=== PATIENT | male | born 1945 | race Caucasian/White ===

== ENCOUNTER 2018-12-15 05:41 | Inpatient (IN) ==
--- NOTE | 2018-11-30 13:40 | PAT Medication Instructions ---
Medication Instructions Date of Service November 30, 2018 Home Medications acetaminophen [Tylenol Extra 1,000 mg PO Q6H PRN aspirin 81 mg PO QAM atorvastatin 40 mg PO QPM lisinopril 40 mg PO QAM metoprolol succinate [Toprol XL] 50 mg PO QAM pantoprazole 40 mg PO QAM polyethylene glycol 3350 [Miralax] 17 g PO HS dorzolamide-timolol [Cosopt] 1 drp OPB DAILY latanoprost [Xalatan] 1 drp OPB DAILY dutasteride 0.5 mg PO HS lorazepam 0.5 mg PO BID PRN ASK your prescriber and surgeon aspirin 81 mg PO QAM DO NOT take the morning of surgery lisinopril 40 mg PO QAM Take morning of surgery With a small sip of water, OTHERWISE NOTHING TO EAT OR DRINK AFTER MIDNIGHT: acetaminophen [Tylenol Extra 1,000 mg PO Q6H PRN (okay to take up to 4 hours prior to surgery if needed) metoprolol succinate [Toprol XL] 50 mg PO QAM pantoprazole 40 mg PO QAM dorzolamide-timolol [Cosopt] 1 drp OPB DAILY latanoprost [Xalatan] 1 drp OPB DAILY lorazepam 0.5 mg PO BID PRN (if needed) Take evening before surgery acetaminophen [Tylenol Extra 1,000 mg PO Q6H PRN (if needed) atorvastatin 40 mg PO QPM polyethylene glycol 3350 [Miralax] 17 g PO HS dutasteride 0.5 mg PO HS lorazepam 0.5 mg PO BID PRN (if needed) polyethylene glycol 3350 [Miralax] 17 g PO HS Other Notes If you have any questions please call us at [phone] or [phone] or [phone] or [phone]
--- NOTE | 2018-12-01 08:46 | Anesthesiology Consultation ---
Date of Service December 01, 2018 Assessment & Plan (1) Encounter for pre-operative examination: - ASA instructions per surgeon/prescriber - Cardio= 12/09/18= "acceptable risk to proceed with upcoming surgery without any additional CV testing or intervention" Chart Review Chart Review: Acceptable Risk for Surgery and Patient seen in Pre Admission Testing Teaching & Discussion Pre-Anesthesia Teaching/Discussion Notes: Instructed NPO after midnight before surgery,except medications with 15 cc of water. Medication instructions provided according to the PAT guidelines. History Surgery Operation Date: 12/15/18 07:30 Proposed Procedures p Robotic Laparoscopic Assisted Retropubic Prostatectomy - Brent Cain MD Height/Weight Height: 5 ft 11 in Weight: 102.6 kg Allergies Allergy/AdvReac Type Severity Reaction Status Date / Time brimonidine [From Combigan] Allergy Intermediate Rash Verified 12/03/18 09:16 timolol [From Combigan] Allergy Intermediate Rash Verified 12/03/18 09:16 oregano Allergy Gastrointestinal Verified 12/03/18 09:16 Upset kareem Allergy Gastrointestinal Verified 12/03/18 09:16 Upset Medications Home Medications Medication Instructions Recorded Confirmed Last Taken aspirin 81 mg PO QAM 10/13/18 12/03/18 10/12/18 atorvastatin 40 mg PO QPM 10/13/18 12/03/18 10/12/18 lisinopril 40 mg PO QAM 10/13/18 12/03/18 10/12/18 metoprolol succinate [Toprol XL] 50 mg PO QAM 10/13/18 12/03/18 10/12/18 pantoprazole 40 mg PO QAM 10/13/18 12/03/18 10/12/18 polyethylene glycol 3350 [Miralax] 17 g PO HS 10/13/18 12/03/18 10/12/18 dorzolamide-timolol [Cosopt] 1 drp OPB DAILY 11/17/18 12/03/18 Unknown latanoprost [Xalatan] 1 drp OPB DAILY 11/17/18 12/03/18 Unknown dutasteride 0.5 mg PO HS 11/25/18 12/03/18 Unknown lorazepam 0.5 mg PO BID PRN 11/25/18 12/03/18 Unknown acetaminophen 500 mg tablet 2,000 mg PO DAILY tab 12/03/18 12/03/18 Unknown ibuprofen 200 mg tablet 200 mg PO DAILY PRN tab 12/03/18 12/03/18 Unknown Past Medical History Medical History Prostate cancer Anxiety Bradycardia ASYMPTOMATIC ON BETA JENNIFER GERD (gastroesophageal reflux disease) CONTROLLED Glaucoma Hyperlipidemia Hypertension Indwelling Giles catheter present Obesity Past Surgical History Surgical History History of abdominal aortic aneurysm repair 2010 History of cataract extraction with lens replacement History of prostate biopsy 11/09/18 History of umbilical hernia repair Past Anesthesia History No Hx of Anesthesia Complications and No Family Hx of Anesthesia Complications History of PONV No Motion Sickness Screening History of Motion Sickness: No Social History Smoking Status: Former smoker tobacco type: cigarettes Smoking cigarettes per day: QUIT 10 YEARS AGO; 1 PPD X 45 YEARS Do You Dip or Chew Tobacco: No Hx Alcohol Use: No Hx Substance Use: No substance use type: does not use Exercise / Class Metabolic Activity II 4-5 Yardwork/Stairs/Walk up hill Review of Systems Patient denies chest pain, shortness of breath, dyspnea on exertion, cough, wheezing, palpitations. Physical Exam Vital Signs VITALS BP 153/83 P 50 TEMP 97.6 SP02 98%RA RESP 16 PHYSICAL Full neck and c-spine range of motion. Full TMJ range of motion. TMD 3.5 finger breaths Mallampati Score 2 Dentition: missing side teeth, several crowns "all over," upper front caps, implants on upper front left/right Lungs: clear throughout to auscultation Cardiac: regular rate and rhythm, no murmurs noted Spine: normal Carotid arteries: negative bruit Extremities: no edema Testing Electrocardiogram Date: 12/01/18 Findings: + SB @ (54) Chest X-Ray Date: 12/01/18 Findings: + NAD Laboratory Results 12/01/18 09:10 12/01/18 09:10 Blood Type O Positive 12/01/18 09:10 Antibody Screen NEGATIVE 12/01/18 09:10 Urine Color Yellow 12/01/18 09:10 Urine Appearance Clear (Clear) 12/01/18 09:10 Urine pH 5.0 (4.5-7.5) 12/01/18 09:10 Ur Specific [place] 1.011 (1.000-1.030) 12/01/18 09:10 Urine Protein Negative (Negative) 12/01/18 09:10 Urine Glucose (UA) Negative (Negative) 12/01/18 09:10 Urine Ketones Negative (Negative) 12/01/18 09:10 Urine Nitrite Negative (Negative) 12/01/18 09:10 Ur Leukocyte Esterase Trace (Negative) H 12/01/18 09:10 Urine WBC (Auto) 5-10 /hpf (0-5) H 12/01/18 09:10 Urine RBC (Auto) >30 /hpf (0-4) H 12/01/18 09:10 U Hyaline Cast (Auto) 1-5 /lpf (0-5) 12/01/18 09:10 U Epithel Cells (Auto) 5-10 /lpf (0-5) H 12/01/18 09:10 Urine Bacteria (Auto) Negative (Negative) 12/01/18 09:10 12/01/18 09:10 Urine Culture - Final Urine,Clean Catch Three types of organisms present, all low counts probable skin mateo. No further identifications or sensitivities to follow.
--- NOTE | 2018-12-01 09:32 | XRay Report ---
XR chest Pre-admission PA/Lat HISTORY: 73 years-old Male pat preoperative exam. No acute chest complaints COMPARISON: [facility] 10/08/2018 TECHNIQUE: PA and lateral views of the chest FINDINGS: Cardiomediastinal and hilar silhouettes are within normal limits. There is no pneumothorax, pleural e ffusion, focal airspace consolidation or overt pulmonary edema. Degenerative changes are seen about t he shoulders and spine. IMPRESSION: No acute process. The above report was generated using voice recognition software. It may contain grammatical, syntax o r spelling errors. Electronically signed by: Jluis Ahuja M.D. 12/01/2018 9:31 AM
[2018-12-01 10:38] LABS: Basophils # (auto) 0.03 K/uL (0-0.2); Basophils % (auto) 0.6 %; Eosinophils # (auto) 0.11 K/uL (0-0.5); Eosinophils % (auto) 2.4 %; Hemoglobin 13.3 g/dL (14.0-18.0); Immature Granulocytes # (auto) 0.01 K/uL (0.00-0.02); Immature Granulocytes % (auto) 0.2 %; Lymphocytes # (auto) 1.32 K/uL (1.2-3.4); Lymphocytes % (auto) 28.6 %; Mean Corpuscular Hgb Conc 33.3 g/dL (32-36); Mean Corpuscular Volume 90.7 fL (80-100); Mean Platelet Volume 9.7 fL (7.4-10.4); Monocytes # (auto) 0.61 K/uL (0.11-0.59); Monocytes % (auto) 13.2 %; Neutrophils # (auto) 2.54 K/uL (1.4-6.5); Platelet Count 190 K/uL (130-400); RDW Coefficient of Variation 13.9 % (11.5-14.5); RDW Standard Deviation 46.3 fL (36.4-46.3); Red Blood Count 4.41 M/uL (4.7-6.1); White Blood Count 4.62 K/uL (4.8-10.8)
[2018-12-01 10:46] LABS: BUN Creatinine Ratio 17.1 (10-20); Calcium 8.7 mg/dl (8.5-10.1); Est GFR (African American) 85.3; Est GFR (Non-African American) 73.6; Potassium 4.5 mmol/L (3.5-5.1)
[2018-12-01 10:50] LABS: Appearance Urine Clear (Clear); Bacteria Urine Automated Negative (Negative); Bilirubin Urine Negative (Negative); Blood Urine 3+ (Negative); Color Urine Yellow; Glucose Urine UA Negative (Negative); Ketones Urine Negative (Negative); Leukocyte Esterase Urine Trace (Negative); Nitrite Urine Negative (Negative); Protein Urine Negative (Negative); RBC Urine Automated >30 /hpf (0-4); Specific Gravity Urine 1.011 (1.000-1.030); Urobilinogen Urine Negative (Negative)
[2018-12-15] MEDS ORDERED: LR 15ML/HR IV SCH ×2 (06:00)
[2018-12-15] MEDS ORDERED: HEPARIN SOD 5,000 UNIT/0.5 ML VIAL SQ SCH (06:00)
[2018-12-15] MEDS ORDERED: ACETAMINOPHEN 1,000 MG/100 ML VIAL IV SCH ×2 (06:00→14:45)
[2018-12-15] MEDS ORDERED: CEFAZOLIN 2000MG 2,000 MG/15 ML SYR IV SCH (06:00)
--- NOTE | 2018-12-15 06:58 | History & Physical Bridge Note ---
Date of Service December 15, 2018 History & Physical Bridge Note I have examined the patient, reviewed the History & Physical and in the interval since the performance of the History & Physical I have noted the following changes of clinical significance: no changes noted
[2018-12-15] MEDS ORDERED: ONDANSETRON INJ 2 MG/ML 2 ML VIAL ONE ×2 (07:08→08:52)
[2018-12-15] MEDS ORDERED: LIDOCAINE HCL 2% 2 ML VIAL/AMP(20MG/ML) INFIL ONE (07:08)
[2018-12-15] MEDS ORDERED: GLYCOPYRROLATE 0.2 MG/ML VIAL ONE ×2 (07:08→08:52)
[2018-12-15] MEDS ORDERED: DEXAMETHASONE SOD INJ 4 MG/ML VIAL ONE (07:08)
[2018-12-15] MEDS ORDERED: NEOSTIGMINE METHYLSULFATE 5 MG/5 ML SYR ONE (07:08)
[2018-12-15] MEDS ORDERED: PROPOFOL IV EMULSION 10 MG/ML 20 ML VIAL IV ONE (07:08)
[2018-12-15] MEDS ORDERED: HYDROmorphone INJ 2 MG/ML SYR/VIAL ONE (07:09)
[2018-12-15] MEDS ORDERED: MIDAZOLAM HCL 1 MG/ML 2ML VIAL ONE (07:09)
[2018-12-15] MEDS ORDERED: fentaNYL citrate 100 MCG/2 ML VIAL ONE ×3 (07:09→13:28)
[2018-12-15] MEDS ORDERED: SODIUM CHLORIDE 0.9% INJ 10 ML VIAL ONE (07:09)
[2018-12-15] MEDS ORDERED: BUPIVACAINE 0.5 % 5 MG/1 ML MPF 30ML VIAL ONE (07:27)
[2018-12-15] MEDS ORDERED: BACITRACIN INJ 50,000 UNIT VIAL ONE (08:08)
[2018-12-15] MEDS ORDERED: HydrALAZINE HCL 20 MG/ML VIAL ONE (08:41)
[2018-12-15] MEDS ORDERED: ePHEDrine sulfate 50 MG/ML SYR ONE (08:53)
[2018-12-15] MEDS ORDERED: METHYLENE BLUE 0.5% 10 ML VIAL ONE (09:36)
[2018-12-15] MEDS ORDERED: SURGICEL ABSORB HEMOSTAT 2IN X 14IN TOP ONE (10:00)
[2018-12-15] MEDS ORDERED: ATROPINE SULFATE 0.1 MG/ML 10ML SYR IV PRN (11:31)
[2018-12-15] MEDS ORDERED: HYDROmorphone INJ 1 MG/ML SYRINGE IV PRN (11:31)
[2018-12-15] MEDS ORDERED: ONDANSETRON INJ 2 MG/ML 2 ML VIAL IV PRN ×2 (11:31→14:44)
[2018-12-15] MEDS ORDERED: fentaNYL citrate 100 MCG/2 ML VIAL IV PRN (11:31)
[2018-12-15] MEDS ORDERED: ePHEDrine sulfate 50 MG/ML AMP IV PRN (11:31)
[2018-12-15] MEDS ORDERED: metroNIDAZOLE 500 MG/100 ML BAG IV ONE (12:00)
[2018-12-15] MEDS ORDERED: FLOSEAL HEMOSTATIC MATRIX 10ML TOP ONE (12:23)
[2018-12-15] MEDS ORDERED: ROCURONIUM BROMIDE 10 MG/ML 5 ML VIAL ONE (13:23)
--- NOTE | 2018-12-15 14:38 | Operative Report ---
Post Operative Report Pre & Post Diagnosis Operation Date: 12/15/18 07:30 Pre-Op Diagnosis: Prostate Cancer Post-Op Diagnosis: Prostate Cancer Procedure Operation Date: 12/15/18 07:30 Actual Procedures p Robotic Assisted Laparoscopic Prostatectomy with Bilateral Pelvic Lymph Node Dissection and bladder neck reconstruction(Not Applicable) - Brent Cain MD Surgeon Brent Cain MD Tennis Director Camila Mercer, ISMAEL, Essie De León, CRPP Estimated Blood Loss 450 Findings See Below (Prostate cancer and possible urothelial cancer) Specimens Bladder neck, frozen suspicious for urothelial malignancy, L & R PLN, prostate + SVs, periprostatic fat Description of Procedure RALRP, BPLND, bladder neck reconstruction I attest to the content of the Intraoperative Record and any orders documented therein. Any exceptions are noted below.
[2018-12-15] MEDS ORDERED: LORazepam 0.5 MG TAB PO PRN (14:43)
[2018-12-15] MEDS ORDERED: MoRPHine SULFATE 4 MG/ML 1 ML CARP\\VIAL IV PRN (14:44)
[2018-12-15 15:20] LABS: Hematocrit (blood only) 38.9 % (42-52); Mean Corpuscular Volume 89.4 fL (80-100); Mean Platelet Volume 9.3 fL (7.4-10.4); Platelet Count 202 K/uL (130-400); RDW Coefficient of Variation 13.9 % (11.5-14.5); RDW Standard Deviation 46.1 fL (36.4-46.3); Red Blood Count 4.35 M/uL (4.7-6.1); White Blood Count 9.47 K/uL (4.8-10.8)
[2018-12-15] MEDS ORDERED: METOPROLOL TARTRATE 1 MG/ML VIAL IV STA (15:41)
[2018-12-15] MEDS ORDERED: METOPROLOL TARTRATE 1 MG/ML VIAL IV ONE (15:42)
[2018-12-15 15:43] LABS: BUN Creatinine Ratio 17.2 (10-20); Calcium 8.3 mg/dl (8.5-10.1); Creatinine Clr Calc Pharmacy 65.8 ml/min; Est GFR (African American) 68.7; Est GFR (Non-African American) 59.3; Potassium 4.7 mmol/L (3.5-5.1)
[2018-12-15 15:52] LABS: Mean Corpuscular Hgb Conc 33.4 g/dL (32-36)
[2018-12-15 15:53] LABS: Basophils # (auto) 0.01 K/uL (0-0.2); Basophils % (auto) 0.1 %; Immature Granulocytes # (auto) 0.02 K/uL (0.00-0.02); Immature Granulocytes % (auto) 0.2 %; Lymphocytes # (auto) 0.54 K/uL (1.2-3.4); Lymphocytes % (auto) 5.7 %; Monocytes # (auto) 0.41 K/uL (0.11-0.59); Monocytes % (auto) 4.3 %; Neutrophils # (auto) 8.49 K/uL (1.4-6.5); Neutrophils % (auto) 89.7 %
--- NOTE | 2018-12-15 16:06 | Anesthesiology Progress Note ---
Date of Service December 15, 2018 Anesthesia Post Procedure Vital Signs Vital Signs: Temp Pulse Pulse Pulse Resp BP BP 12/15/18 16:00 72 12 12/15/18 15:50 82 17 12/15/18 15:47 100 H 155/88 H 12/15/18 15:40 101 H 19 12/15/18 15:30 100 H 19 12/15/18 15:20 102 H 15 12/15/18 15:10 100 H 16 12/15/18 15:00 100 H 13 12/15/18 14:55 120 H 26 H 12/15/18 14:49 36.2 C L 103 H 13 12/15/18 06:17 36.8 C 52 L 20 158/84 H BP Pulse Ox 12/15/18 16:00 163/87 H 94 12/15/18 15:50 137/80 95 12/15/18 15:47 12/15/18 15:40 129/92 98 12/15/18 15:30 145/92 H 95 12/15/18 15:20 136/92 95 12/15/18 15:10 129/73 95 12/15/18 15:00 104/73 94 12/15/18 14:55 127/82 94 12/15/18 14:49 119/88 94 12/15/18 06:17 97 Pain Intensity Abdomen: Pain Intensity: 0 Notes Mental Status: alert / awake / arousable Patient Amnestic to Procedure: Yes Nausea / Vomiting: adequately controlled Pain: adequately controlled Airway Patency, RR, SpO2: stable & adequate BP & HR: stable & adequate Hydration State: stable & adequate Anesthetic Complications: no major complications apparent and Pt Satisfied with anesthetic care
[2018-12-15] MEDS: LACTATED RINGER'S 1,000 ML IV SCH ×2 (17:15→20:20)
[2018-12-15] MEDS: CIPROFLOXACIN 400 MG/200 ML BAG IV SCH (18:03)
[2018-12-15] MEDS: FAMOTIDINE 20 MG in SYRINGE 3 ML IV SCH (18:03)
[2018-12-15 20:14] LABS: Prothrombin Time 10.7 Seconds (9.0-12.0)
[2018-12-15] MEDS ORDERED: DOCUSATE SODIUM 100 MG CAP PO SCH (21:00)
[2018-12-15] MEDS: OXYCODONE HCL IR 5 MG TAB (IMMEDIATE RELEASE) PO PRN (21:03)
[2018-12-15] MEDS: ATORVASTATIN 40 MG TAB PO SCH (21:04)
[2018-12-15] MEDS: HEPARIN SOD 5,000 UNIT/0.5 ML VIAL SQ SCH (21:10)
[2018-12-16] MEDS: LACTATED RINGER'S 1,000 ML IV SCH ×3 (04:15→20:04)
[2018-12-16] MEDS: CIPROFLOXACIN 400 MG/200 ML BAG IV SCH (04:52)
[2018-12-16] MEDS: FAMOTIDINE 20 MG in SYRINGE 3 ML IV SCH (04:52)
[2018-12-16] MEDS: OXYCODONE HCL IR 5 MG TAB (IMMEDIATE RELEASE) PO PRN ×5 (04:52→20:06)
--- NOTE | 2018-12-16 04:55 | Operative Report ---
DATE OF OPERATION: 12/15/2018 PREOPERATIVE DIAGNOSIS: cT3 [place] 5+4 adenocarcinoma of the prostate. 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 PROCEDURE: Robot-assisted laparoscopic radical retropubic prostatectomy with laparoscopic resection of bladder neck tumor, bilateral pelvic lymph node dissection and bladder neck reconstruction. SURGEON: Brent Cain MD ASSISTANTS: ISMAEL Mccann, and ISMAEL Gold. ANESTHESIA: General anesthesia with endotracheal intubation plus local at port sites. ESTIMATED BLOOD LOSS: 450 mL. INTRAVENOUS FLUIDS: 1700 mL crystalloid. SPECIMENS SENT TO PATHOLOGY: Periprostatic fat, bladder neck tissue felt to be suspicious for urothelial malignancy on frozen section and bladder neck tissue for permanent section, prostate plus seminal vesicles, left pelvic lymph nodes and right pelvic lymph nodes. DRAINS LEFT IN PLACE: Include a #10 COLBY drain in the left lower quadrant and a 22-Tajik silicone Giles catheter with 20 mL of sterile water in the balloon. COMPLICATIONS: Presence of a friable bladder neck mass felt to be consistent with urothelial malignancy on frozen section. FINDINGS: As above. Ureteral orifices noted to be free of any involvement or injury. Extensive bladder neck reconstruction performed with watertight anastomosis after completion of closure. Severely indurated periprostatic tissue with a significant induration of the left periprostatic tissues and the tissues between the rectum and the prostate. Calcified prostatic vasculature. No evidence of any rectal injury after completion of case. BRIEF HISTORY: Mr. Longo is a 73-year-old male previously seen by my partner Dr. Krause who is status post prostate biopsy demonstrating high [place] grade adenocarcinoma in all cores. After discussion of risks and benefits of various forms of intervention, the patient has decided upon a robot-assisted laparoscopic prostatectomy to manage his disease. He understands that there is a significant risk that further therapy will be required, but this is felt to be the treatment of choice seeing his issues with recurrent urinary retention and failure of outpatient clean intermittent catheterization protocol. Informed consent was reviewed with the patient and family preoperatively today. Intravenous cephalosporins were provided for antibiotic coverage and SCDs and subcutaneous heparin used for DVT coverage. Intravenous Tylenol was provided preoperatively for additional perioperative analgesia. DESCRIPTION OF PROCEDURE: The patient was properly identified and brought into the operative suite after identification of appropriate consent in the chart. General anesthesia with endotracheal intubation was initiated and the patient was prepped and draped in the standard fashion for this procedure. time buyer-out procedure was followed. A transverse supraumbilical incision was made and a 0-degree laparoscope was used through a visual obturator to enter the abdomen under direct visualization. Abdomen was insufflated to 15 mmHg and surveyed demonstrating no evidence of any injury to the intra-abdominal structures on trocar access or other worrisome variations in anatomy. Ports were placed for a 4th arm robotic template including 2 left-sided 7 mm robotic ports, one 7 mm right-sided robotic port, and a 5 and 12 mm advertising assistant manager port. The patient was placed in Trendelenburg and robot was brought in and docked. A 0-degree robotic scope was used to drop the bladder down to the level of the pubic bone. The bladder was dropped down to the level of the vas deferens on both sides and the periprostatic fat was removed and sent for pathologic analysis. The patient was noted to have a significantly enlarged prostate as had been suggested on his previous CT scan. The endopelvic fascia was sharply entered on both sides using hook cautery and dissected free down to the level of the apex of the prostate. On the left hand side at this point, it was already noted that there was some induration in the posterior lateral tissues associated with the prostate gland. Dorsal vein was able to be skeletonized without excessive difficulty and was controlled in a [id number] fashion using an 0 Vicryl suture on a CT1 needle. After this was complete, the needle was removed and a 30-degree down lens was taken to address the bladder neck. Bladder neck was placed on traction in the 4th arm. The patient's Giles balloon was noted to be deviated to the patient's right hand side. This was felt to likely be due for an intravesical component of the prostate gland as had been expected due to previous CT scan imaging and difficulties with his voiding. The anterior bladder neck was divided down to the level of the prostate and then entered. On entering the bladder, the patient's Giles catheter was noted to be obscured by friable tissue which was not felt to be typical of a median lobe of the prostate. This was noted to be very inflammatory and soft and mobile in its appearance. A small section of this tissue was sent for frozen section as well as permanent section as bladder neck tissue at this point. The bladder neck was circumscribed laterally on both sides to allow for better definition of its posterior aspect. A vessel sealer was used to take the distal bladder pedicles and later the prostatic pedicles as necessary, although due to calcifications of the vessels on occasion Weck clips were required. After the bladder had been circumscribed, the visualization via the anterior vesicotomy was still noted to be poor. Decision was made to divide the bladder in a craniocaudad plane anteriorly to allow for visualization of the intravesical structures. At this point, frozen section was reported felt to be consistent with urothelial origin to the abnormality, therefore not suspicious for urothelial malignancy. After the anterior bladder neck had been opened, the remainder of the bladder was more easily visualized. A tacking suture was placed in the tissue at the level of the anterior vesicotomy to allow for easier identification in the future. Methylene blue had been provided with non-identification of the abnormal tissue at the bladder neck and ureteral orifices were thankfully able to be visualized and noted to be free from involvement. However, a significant portion of the bladder neck was noted to have abnormal appearing tissue. There were some difficulties in distinguishing the friable papillary suspected urothelial malignancy of the bladder neck versus inflammatory changes from the patient's chronic Giles catheter. Of note, at the onset of the case, after exchanging the patient's indwelling Giles catheter, bladder had been irrigated with bacitracin, saline on several occasions to minimize the odds of contamination from bacteriuria. The posterior bladder neck was marked using the hot scissors in a plane which avoided injury to the ureteral orifices, but was felt to encompass all of the abnormal appearing mucosa which appeared to sit on top of the bladder neck and prostate. Of note, no additional areas of urothelial abnormality were appreciated in the remainder of the visualized bladder. After this was complete, to assist with mobilization of the bladder and to avoid the need for excess manipulation of the tissue at the bladder neck, the lateral aspects of the prostate were begun to be dissected free. While on the right hand side, which had been deviated laterally due to enlargement of the left side of the prostate and the patient's bladder neck tumor, this dissection was able to be carried out with a relative lack of difficulty. The rectum was dropped, vas was identified, and seminal vesicles were dissected free. Cold scissors were used to drop the rectum to the level of the apex. Unfortunately, on the left hand side, a very significant and copious amount of induration of the tissues around the prostate gland was present. These tissues unfortunately required very slow and careful dissection to avoid injury to the rectum which was noted to be extremely adherent to the prostate gland. A much wider dissection was needed on the area of the left bladder neck to identify a plane where the tissue was able to be divided due to its induration. Prostatic vessels due to the slow nature of the dissection were able to be identified individually and were clamped. Some induration of these prostatic vessels required multiple clips prior to the ability to divide the tissues. Posterior to the bladder neck on the left hand side, an incision into an apparent mucosal surface was identified. Rectal tube which was present in place was insufflated under saline irrigation, but no bubbles were noted to be forthcoming from this area. The rectal tube was advanced and manipulated still without any evidence of injury despite the appearance of the tissues. Dissection was completed with the dorsal vein and urethra, the dorsal vein being divided using hot scissors and the urethra being skeletonized. Very thickened rectourethralis fibers were taken with great caution until the prostate was free within the pelvis. An EndoCatch bag was brought down to the level of the prostate gland which was then securely bagged and placed within the abdominal cavity for retrieval at the end of the case. The instruments were exchanged for new versions and had been cleaned at regular intervals throughout the case. Generous irrigation of the pelvis to minimize the odds of tumor spillage and contamination was performed with excess saline being suctioned out methodically. The rectum was again tested through the rectal tube and noted to be free of any injury. The area in question of questionable mucosal injury was again inspected and it was realized that this was a buttonholing of the pouch of Ken posteriorly. Bladder was brought anterior and the pouch of Ken was visualized with no evidence of any injury to any other significant structures such as the bowels or rectum in this area. This was simply due to the adherence of the patient's prostate and its cephalad extension and enlargement. Bladder was noted to be free of any other injuries and ureteral orifices continued to efflux stained urine with methylene blue throughout the case. FloSeal tissue sealant was then placed over the prostatic bed. Attention was then turned to the lymph node dissection on both sides. Unfortunately, the patient was noted to have several accessory vessels including accessory obturator vessels on both sides and large branches off of the external iliac vein. Using the external iliac vein, pelvic sidewall and the obturator nerve as the planes of dissection, the lymph node packets were removed on both sides. Weck clips and cautery were used for control of small vessels and lymphatics as necessary. The patient's aldair tissues on the left hand side were felt to be more inflamed than those on the right hand side mirroring the findings at the level of the prostate unfortunately. After this was complete, FloSeal tissue sealant was placed within the lymph node fossa. Attention was turned to the pelvis where excellent hemostasis was appreciated. Giles catheter was brought in via the urethra and perineal pressure was applied. Using a double armed V-Loc suture, the posterior lip of the bladder was brought to the posterior lip of the urethra and able to be brought down in a well-apposed fashion. After the posterior lip of the urethra and bladder were then brought together, single-armed V-Loc sutures were used to create a fish mouth closure on both sides ducking the ureteral orifices away from the level of the anastomosis. The double-armed V-Loc suture was then used to continue the anastomosis on both sides towards an anterior location. At this point, a third single-armed V-Loc suture was used to close the anterior vesicotomy which had been performed for exposure of the bladder and the bladder tumor. Prior to completion of the closure, a 22-Tajik Giles catheter was visualized entering the bladder. A 20 mL of sterile water were placed in the balloon and the bladder was tested with greater than 120 mL of sterile irrigant. Somewhat unexpectedly, a watertight anastomosis was appreciated. [place] were removed and needle and instrument count was noted to be correct. Fourth arm was removed and #10 COLBY drain was brought in via the fourth arm port. This was brought down to the true pelvis while avoiding placing it directly over any of the bladder closures. The robotic instruments were removed and the camera was brought in via the advertising assistant manager 12 mm port. The strings to the EndoCatch bag were brought up through the supraumbilical port with the aldair tissue having been placed in a second EndoCatch bag for retrieval at the end of the case. Ports were removed after dedocking the robot and the Trendelenburg was removed from the table. Supraumbilical incision was enlarged over the laparoscopic trocar until the specimen bags could be easily removed. A 0 Vicryl suture on a UR-5 needle was used to close the supraumbilical incision followed by 3-0 Vicryl at the level of the subcutaneous tissues. A 2-0 silk was used to secure the COLBY drain in place and 4-0 Monocryl and Dermabond were used to close the additional laparoscopic port sites. Excess carbon dioxide gas had been expressed from the abdomen prior to completion of closure. Anesthesia was reversed and patient was transferred to the recovery room in stable condition. FOLLOWUP CARE: The patient will be admitted to the floor for standard postoperative management. Care and findings had been discussed with the patient and the patient's family throughout the case. Of note, when the frozen section was positive for urothelial tissue, I personally left the OR to review these findings with the patient's family and reviewed the remaining surgical plan. I attest to the content of the Intraoperative Record and any orders documented therein. Any exceptions are noted below. ZHANE
[2018-12-16 06:52] LABS: Hematocrit (blood only) 32.9 % (42-52); Hemoglobin 10.9 g/dL (14.0-18.0); Mean Corpuscular Hgb Conc 33.1 g/dL (32-36); Mean Corpuscular Volume 90.1 fL (80-100); Mean Platelet Volume 9.1 fL (7.4-10.4); Platelet Count 166 K/uL (130-400); RDW Coefficient of Variation 14.3 % (11.5-14.5); RDW Standard Deviation 47.1 fL (36.4-46.3); Red Blood Count 3.65 M/uL (4.7-6.1); White Blood Count 8.62 K/uL (4.8-10.8)
[2018-12-16 07:24] LABS: Creatinine Clr Calc Pharmacy 71.6 ml/min; Est GFR (African American) 76.2; Est GFR (Non-African American) 65.7; Potassium 4.2 mmol/L (3.5-5.1)
[2018-12-16 07:59] LABS: Immature Granulocytes # (auto) 0.01 K/uL (0.00-0.02); Immature Granulocytes % (auto) 0.1 %; Lymphocytes # (auto) 0.71 K/uL (1.2-3.4); Lymphocytes % (auto) 8.2 %; Monocytes # (auto) 0.92 K/uL (0.11-0.59); Monocytes % (auto) 10.7 %; Neutrophils # (auto) 6.98 K/uL (1.4-6.5)
--- NOTE | 2018-12-16 08:07 | Urology Progress Note ---
Date of Service December 16, 2018 Assessment & Plan (1) Prostate cancer: A/P 73 yo male POD#1 s/p RALRP, BPLND, resection of bladder neck tumor. Findings again reviewed. Will await postop pathology report but otherwise doing well from a surgical standpoint. Minimal COLBY output. Increase diet and activity. Patient feels some limitations due to pain - will see how he does today. Possible DC COLBY and DC home later today. Will leave pelaez in place x 3 weeks seen extensive bladder neck reconstruction and plan on OP cystogram prior to TOV. DC instructions reviewed with patient. Subjective 73 yo male POD#1 s/p RALRP, BPLND, resection of bladder neck tumor. He c/o appropriate lower abdominal pain, + OOB in [place] per patient last night. Labwork noted - drop in Hb likely postop equlibration. He is irena clears, mild appetite, no n/v. Intraop findings again reviewed with patient. Constitutional: no fever and no chills Respiratory: no hemoptysis Cardiovascular: no chest pain Gastrointestinal: + abdominal pain; no nausea and no vomiting Genitourinary (Male): + hematuria (resolved postop) Integumentary: no acne and no boil Neurologic: no paralysis and no numbness Psychiatric: no hopelessness Endocrine: + fatigue Physical Exam Vital Signs (Past 24 Hours): Last Vital Signs Temp 36.6 C 12/16/18 07:29 Pulse 74 12/16/18 07:29 Resp 16 12/16/18 07:29 BP 109/68 12/16/18 07:29 Pulse Ox 95 12/16/18 07:29 Constitutional: well developed and well nourished Neck: trachea midline; no anterior neck swelling Respiratory: normal respiratory effort; no respiratory distress and does not use accessory muscles Cardiovascular: Vessels: radial pulses present Gastrointestinal (Abdomen): Inspection/Auscultation: abdomen not distended Percussion/Palpation: + abdomen tender (minimal) and abdomen soft inc c/d/i with dermabone Skin: normal turgor Neurologic: awake; not obtunded Psychiatric: Orientation: oriented x 3 Lymphatic: no lymphadenopathy Results & Data Laboratory Results Laboratory Results - last 48 hr 12/15/18 12/15/18 12/15/18 06:02 15:10 15:10 WBC 9.47 RBC 4.35 L Hgb 13.0 L Hct 38.9 L MCV 89.4 MCH 29.9 MCHC 33.4 RDW Std Deviation 46.1 RDW Coeff of Lucian 13.9 Plt Count 202 MPV 9.3 Immature Gran % (Auto) 0.2 Neut % (Auto) 89.7 Lymph % (Auto) 5.7 [place] % (Auto) 4.3 Eos % (Auto) 0.0 Baso % (Auto) 0.1 Immature Gran # (Auto) 0.02 Neut # (Auto) 8.49 H Lymph # (Auto) 0.54 L [place] # (Auto) 0.41 Eos # (Auto) 0.00 Baso # (Auto) 0.01 PT INR Sodium 139 Potassium 4.7 Chloride 106 Carbon Dioxide 26 Anion Gap 7.0 BUN 21 H Creatinine 1.22 Est Cr Clr Drug Dosing 65.8 Est GFR ( Amer) 68.7 Est GFR (Non-Af Amer) 59.3 BUN/Creatinine Ratio 17.2 Glucose 160 H Calcium 8.3 L Hepatitis C Ab Screen Neg 12/15/18 12/16/18 12/16/18 19:48 06:29 06:29 WBC 8.62 RBC 3.65 L Hgb 10.9 L Hct 32.9 L MCV 90.1 MCH 29.9 MCHC 33.1 RDW Std Deviation 47.1 H RDW Coeff of Lucian 14.3 Plt Count 166 MPV 9.1 Immature Gran % (Auto) 0.1 Neut % (Auto) 81.0 Lymph % (Auto) 8.2 [place] % (Auto) 10.7 Eos % (Auto) 0.0 Baso % (Auto) 0.0 Immature Gran # (Auto) 0.01 Neut # (Auto) 6.98 H Lymph # (Auto) 0.71 L [place] # (Auto) 0.92 H Eos # (Auto) 0.00 Baso # (Auto) 0.00 PT 10.7 INR 1.0 Sodium 136 Potassium 4.2 Chloride 103 Carbon Dioxide 28 Anion Gap 5.0 BUN 20 H Creatinine 1.12 Est Cr Clr Drug Dosing 71.6 Est GFR ( Amer) 76.2 Est GFR (Non-Af Amer) 65.7 BUN/Creatinine Ratio 18.0 Glucose 137 H Calcium 8.0 L Hepatitis C Ab Screen
[2018-12-16] MEDS: DORZOLAMIDE/TIMOLOL 22.3/6.8MG/ML 10 ML BTL OPB SCH (08:26)
[2018-12-16] MEDS: PANTOprazole 40 MG TAB PO SCH (08:27)
[2018-12-16] MEDS: METOPROLOL SUCC 50MG EXT REL TAB PO SCH (08:28)
[2018-12-16] MEDS: LISINOPRIL 40 MG TAB PO SCH (08:28)
[2018-12-16] MEDS: LATANOPROST 0.005% OP SOLN 2.5 ML BTL OPB SCH (08:28)
[2018-12-16] MEDS: HEPARIN SOD 5,000 UNIT/0.5 ML VIAL SQ SCH ×2 (08:28→20:12)
--- NOTE | 2018-12-16 08:34 | Anesthesiology Progress Note ---
Date of Service December 16, 2018 Anesthesia Post Procedure Vital Signs Vital Signs: Temp Pulse Pulse Pulse Resp BP BP 12/16/18 07:29 36.6 C 74 16 109/68 12/16/18 03:00 36.9 C 79 16 12/15/18 23:35 36.6 C 78 16 12/15/18 19:41 36.8 C 89 18 12/15/18 18:21 36.7 C 86 16 12/15/18 17:31 36.7 C 86 16 12/15/18 16:59 36.6 C 86 16 12/15/18 16:38 36.8 C 91 H 16 12/15/18 16:20 36.7 C 94 H 18 12/15/18 16:10 93 H 14 12/15/18 16:00 72 12 12/15/18 15:50 82 17 12/15/18 15:47 100 H 155/88 H 12/15/18 15:40 101 H 19 12/15/18 15:30 100 H 19 12/15/18 15:20 102 H 15 12/15/18 15:10 100 H 16 12/15/18 15:00 100 H 13 12/15/18 14:55 120 H 26 H 12/15/18 14:49 36.2 C L 103 H 13 BP Pulse Ox 12/16/18 07:29 95 12/16/18 03:00 133/63 93 12/15/18 23:35 133/75 92 12/15/18 19:41 143/84 H 92 12/15/18 18:21 150/87 H 98 12/15/18 17:31 143/84 H 94 12/15/18 16:59 138/87 92 12/15/18 16:38 152/87 H 95 12/15/18 16:20 147/81 H 96 12/15/18 16:10 144/83 H 96 12/15/18 16:00 163/87 H 94 12/15/18 15:50 137/80 95 12/15/18 15:47 12/15/18 15:40 129/92 98 12/15/18 15:30 145/92 H 95 12/15/18 15:20 136/92 95 12/15/18 15:10 129/73 95 12/15/18 15:00 104/73 94 12/15/18 14:55 127/82 94 12/15/18 14:49 119/88 94 Pain Intensity Abdomen: Pain Intensity: 3 Notes Mental Status: alert / awake / arousable Patient Amnestic to Procedure: Yes Nausea / Vomiting: adequately controlled (patient had some nausea postop that has resolved; ) Pain: adequately controlled Airway Patency, RR, SpO2: stable & adequate BP & HR: stable & adequate Hydration State: stable & adequate Anesthetic Complications: no major complications apparent
[2018-12-16] MEDS: CIPROFLOXACIN 500 MG TAB PO SCH (19:31)
[2018-12-16] MEDS: FAMOTIDINE 20 MG TAB PO SCH (20:07)
[2018-12-16] MEDS: ATORVASTATIN 40 MG TAB PO SCH (20:07)
[2018-12-16 23:58] VITALS: TEMP 98.2; O2SAT 92
[2018-12-17] MEDS: OXYCODONE HCL IR 5 MG TAB (IMMEDIATE RELEASE) PO PRN ×3 (00:12→12:49)
[2018-12-17] MEDS: LACTATED RINGER'S 1,000 ML IV SCH ×2 (03:22→11:26)
[2018-12-17] MEDS: CIPROFLOXACIN 500 MG TAB PO SCH (05:25)
[2018-12-17 07:04] LABS: Basophils # (auto) 0.01 K/uL (0-0.2); Basophils % (auto) 0.1 %; Eosinophils # (auto) 0.06 K/uL (0-0.5); Eosinophils % (auto) 0.8 %; Hematocrit (blood only) 31.9 % (42-52); Hemoglobin 10.5 g/dL (14.0-18.0); Immature Granulocytes # (auto) 0.02 K/uL (0.00-0.02); Immature Granulocytes % (auto) 0.3 %; Lymphocytes # (auto) 0.74 K/uL (1.2-3.4); Lymphocytes % (auto) 9.6 %; Mean Corpuscular Hgb Conc 32.9 g/dL (32-36); Mean Corpuscular Volume 91.1 fL (80-100); Mean Platelet Volume 8.8 fL (7.4-10.4); Monocytes # (auto) 0.91 K/uL (0.11-0.59); Monocytes % (auto) 11.8 %; Neutrophils # (auto) 5.97 K/uL (1.4-6.5); Neutrophils % (auto) 77.4 %; Platelet Count 127 K/uL (130-400); RDW Coefficient of Variation 14.4 % (11.5-14.5); RDW Standard Deviation 47.7 fL (36.4-46.3); White Blood Count 7.71 K/uL (4.8-10.8)
[2018-12-17 07:14] VITALS: BP 155/74; PULSE 80
[2018-12-17 07:30] LABS: BUN Creatinine Ratio 17.6 (10-20); Calcium 7.9 mg/dl (8.5-10.1); Creatinine Clr Calc Pharmacy 87.2 ml/min; Est GFR (African American) 96.6; Est GFR (Non-African American) 83.4; Potassium 3.8 mmol/L (3.5-5.1)
[2018-12-17] MEDS: HEPARIN SOD 5,000 UNIT/0.5 ML VIAL SQ SCH (08:35)
[2018-12-17] MEDS: DORZOLAMIDE/TIMOLOL 22.3/6.8MG/ML 10 ML BTL OPB SCH (08:35)
[2018-12-17] MEDS: FAMOTIDINE 20 MG TAB PO SCH (08:35)
[2018-12-17] MEDS: LISINOPRIL 40 MG TAB PO SCH (08:37)
[2018-12-17] MEDS: LATANOPROST 0.005% OP SOLN 2.5 ML BTL OPB SCH (08:38)
[2018-12-17] MEDS: PANTOprazole 40 MG TAB PO SCH (08:38)
[2018-12-17] MEDS: METOPROLOL SUCC 50MG EXT REL TAB PO SCH (08:38)
--- NOTE | 2018-12-17 13:14 | Urology Progress Note ---
Date of Service December 17, 2018 Assessment & Plan (1) Prostate cancer: A/P 73 yo male POD#1 s/p RALRP, BPLND, resection of bladder neck tumor. VS stable, labs stable. Mnimal COLBY output - okay to d/c prior to discharge. Pelaez draining clear. Discussed with Dr. Cain. -Pt to received dulcolax suppository, encourage chewing gum. Tolerating PO without emesis - okay to go home tonight. Pt and understanding and agreeable. Discharge instructions reviewed with patient again. Will leave pelaez in place x 3 weeks seen extensive bladder neck reconstruction and plan on OP cystogram prior to TOV. Subjective 73 yo male POD#1 s/p RALRP, BPLND, resection of bladder neck tumor. Reporting improved lower abd tenderness. Today with minimal appetite/belching/mild nausea. No emesis. No flatus yet. Did tolerate eggs for breakfast, nothing for lunch. Sipping gladys barbi. Sitting at side of bed, has been ambulating in halls. States he had an oxy 10mg, which he attributes to some of his nausea. VS and h/h remains stable today. Physical Exam Vital Signs (Past 24 Hours): Last Vital Signs Temp 36.8 C 12/17/18 07:13 Pulse 80 12/17/18 07:13 Resp 16 12/17/18 07:13 BP 155/74 H 12/17/18 07:13 Pulse Ox 92 12/17/18 07:13 Physical Exam: A&Ox3 RRR Abd tender, mildly distended. : urine draining clear in tubing, still blue tinged in collecting bag. Results & Data Laboratory Results Laboratory Results - last 48 hr 12/15/18 12/15/18 12/15/18 06:02 15:10 15:10 WBC 9.47 RBC 4.35 L Hgb 13.0 L Hct 38.9 L MCV 89.4 MCH 29.9 MCHC 33.4 RDW Std Deviation 46.1 RDW Coeff of Lucian 13.9 Plt Count 202 MPV 9.3 Immature Gran % (Auto) 0.2 Neut % (Auto) 89.7 Lymph % (Auto) 5.7 [place] % (Auto) 4.3 Eos % (Auto) 0.0 Baso % (Auto) 0.1 Immature Gran # (Auto) 0.02 Neut # (Auto) 8.49 H Lymph # (Auto) 0.54 L [place] # (Auto) 0.41 Eos # (Auto) 0.00 Baso # (Auto) 0.01 PT INR Sodium 139 Potassium 4.7 Chloride 106 Carbon Dioxide 26 Anion Gap 7.0 BUN 21 H Creatinine 1.22 Est Cr Clr Drug Dosing 65.8 Est GFR ( Amer) 68.7 Est GFR (Non-Af Amer) 59.3 BUN/Creatinine Ratio 17.2 Glucose 160 H Calcium 8.3 L Hepatitis C Ab Screen Neg 12/15/18 12/16/18 12/16/18 19:48 06:29 06:29 WBC 8.62 RBC 3.65 L Hgb 10.9 L Hct 32.9 L MCV 90.1 MCH 29.9 MCHC 33.1 RDW Std Deviation 47.1 H RDW Coeff of Lucian 14.3 Plt Count 166 MPV 9.1 Immature Gran % (Auto) 0.1 Neut % (Auto) 81.0 Lymph % (Auto) 8.2 [place] % (Auto) 10.7 Eos % (Auto) 0.0 Baso % (Auto) 0.0 Immature Gran # (Auto) 0.01 Neut # (Auto) 6.98 H Lymph # (Auto) 0.71 L [place] # (Auto) 0.92 H Eos # (Auto) 0.00 Baso # (Auto) 0.00 PT 10.7 INR 1.0 Sodium 136 Potassium 4.2 Chloride 103 Carbon Dioxide 28 Anion Gap 5.0 BUN 20 H Creatinine 1.12 Est Cr Clr Drug Dosing 71.6 Est GFR ( Amer) 76.2 Est GFR (Non-Af Amer) 65.7 BUN/Creatinine Ratio 18.0 Glucose 137 H Calcium 8.0 L Hepatitis C Ab Screen 12/17/18 12/17/18 06:45 06:45 WBC 7.71 RBC 3.50 L Hgb 10.5 L Hct 31.9 L MCV 91.1 MCH 30.0 MCHC 32.9 RDW Std Deviation 47.7 H RDW Coeff of Lucian 14.4 Plt Count 127 L MPV 8.8 Immature Gran % (Auto) 0.3 Neut % (Auto) 77.4 Lymph % (Auto) 9.6 [place] % (Auto) 11.8 Eos % (Auto) 0.8 Baso % (Auto) 0.1 Immature Gran # (Auto) 0.02 Neut # (Auto) 5.97 Lymph # (Auto) 0.74 L [place] # (Auto) 0.91 H Eos # (Auto) 0.06 Baso # (Auto) 0.01 PT INR Sodium 138 Potassium 3.8 Chloride 105 Carbon Dioxide 31 Anion Gap 2.0 L BUN 16 Creatinine 0.92 Est Cr Clr Drug Dosing 87.2 Est GFR ( Amer) 96.6 Est GFR (Non-Af Amer) 83.4 BUN/Creatinine Ratio 17.6 Glucose 106 H Calcium 7.9 L Hepatitis C Ab Screen
[2018-12-17] MEDS ORDERED: BISACODYL 10 MG SUPP PR STA (13:59)
--- NOTE | 2018-12-18 11:58 | Discharge Summary ---
Date of Service December 29, 2018 Admission HPI Per Admitting Provider Patient with urinary retention and high grade prostate cancer for robotic prostatectomy. Please see H&P for further details. Discharge Data Procedures Performed Operation Date: 12/15/18 07:30 Actual Procedures p Robotic Assisted Laparoscopic Prostatectomy with Bilateral Pelvic Lymph Node Dissection and bladder neck reconstruction(Not Applicable) - Brent Cain MD
--- NOTE | 2018-12-25 09:05 | Discharge Summary ---
Date of Service December 25, 2018 Admission HPI Per Admitting Provider Patient with urinary retention and high grade prostate cancer for robotic prostatectomy. Please see H&P for further details. Admission Exam (Per Admitting) Constitutional well developed and well nourished Neck trachea midline; no anterior neck swelling Respiratory normal respiratory effort; no respiratory distress and does not use accessory muscles Cardiovascular Vessels: radial pulses present Gastrointestinal (Abdomen) Inspection/Auscultation: abdomen not distended Percussion/Palpation: + abdomen tender (minimal) and abdomen soft Skin normal turgor Neurologic awake; not obtunded Psychiatric Orientation: oriented x 3 Lymphatic no lymphadenopathy Discharge Data Procedures Performed Operation Date: 12/15/18 07:30 Actual Procedures p Robotic Assisted Laparoscopic Prostatectomy with Bilateral Pelvic Lymph Node Dissection and bladder neck reconstruction(Not Applicable) - Brent Cain MD Hospital Course (1) Prostate cancer: A/P 73 yo male POD#1 s/p RALRP, BPLND, resection of bladder neck tumor. VS stable, labs stable. Mnimal COLBY output - okay to d/c prior to discharge. Pelaez draining clear. Discussed with Dr. Cain. -Pt to received dulcolax suppository, encourage chewing gum. Tolerating PO without emesis - okay to go home tonight. Pt and understanding and agreeable. Discharge instructions reviewed with patient again. Will leave pelaez in place x 3 weeks seen extensive bladder neck reconstruction and plan on OP cystogram prior to TOV. Patient remained until POD#2 due to discomfort, stable for DC home POD#2. Discharge Instructions See DC instructions for further details
== END 2018-12-17 15:45 | disposition home or self-care (01) | DRG 707 ==
LOC: ASU 05:41 → 3W 14:44

== ENCOUNTER 2022-10-05 11:30 | Inpatient (IN) ==
[2022-10-05] MEDS ORDERED: SODIUM CHLORIDE 0.9% 1000ML 1,000 ML IV STA (11:48)
[2022-10-05] MEDS ORDERED: MoRPHine SULFATE 4 MG/ML 1 ML CARP\\VIAL IV STA (11:48)
[2022-10-05] MEDS ORDERED: ONDANSETRON INJ 2 MG/ML 2 ML VIAL IV STA (11:48)
--- NOTE | 2022-10-05 11:55 | Emergency Department Note ---
Impression & Plan Acute urinary retention, Hyponatremia, Back pain, Abnormal EKG, Elevated troponin I level ED Provider Note NAME: ANN MARIE SANTORO AGE: 77 SEX: M : 1945 ARRIVES VIA: Ambulance INFORMANT: Patient, the patient's significant other ED PROVIDER(S): Julio Kitchen DO CHIEF COMPLAINT: Back pain HPI: The patient is a 77-year-old male who presented to the emergency department for an evaluation of back pain. The patient has a history of prostate cancer. Over the course the last week he has had worsening lower back pain. He called his oncologist and was prescribed oxycodone. He has been taking oxycodone but his last dose was last evening. His significant other became very concerned because the patient was having difficulty getting out of bed this morning. She tried to get him out of bed was unable to. She also noticed that he has been more confused and lethargic recently. She states that he is not been responding as well as normally. There is been no reported fall. There is been no reported dysuria or frequency. He has no fever. He has not been seen by his primary care physician for the symptoms. ROS: See above HPI for pertinent positives & negatives. A total of 10 systems reviewed and were otherwise negative. PAST MEDICAL HISTORY: See Below PAST SURGICAL HISTORY: See Below FAMILY HISTORY: See Below SOCIAL HISTORY: See Below HOME MEDICATIONS: See Below ALLERGIES: See Below VITALS: See Below PHYSICAL EXAMINATION: GENERAL: The patient is awake and answers questions appropriately. He is slow to follow commands. EYES: The conjunctivae are clear. The pupils are round and reactive. EARS, NOSE, MOUTH AND THROAT: The nose is without any evidence of any deformity. NECK: The neck is nontender and supple. RESPIRATORY: Normal respiratory effort is noted there is no evidence of wheezing rhonchi or rales CARDIOVASCULAR: Regular rate and rhythm noted there no murmurs rubs or gallops normal S1 normal S2. GASTROINTESTINAL: The abdomen is soft. Abdomen is nontender. BACK: No thoracic spine tenderness was noted to palpation. There was lower lumbar and sacral tenderness to palpation. Range of motion does appear to be limited secondary to pain. MUSCULOSKELETAL/EXTREMITIES: There is no evidence of gross deformity full range of motion is noted in the hips and shoulders. SKIN: Skin is cool and dry. There is pedal edema bilaterally. NEUROLOGIC: Patient is awake and alert to verbal commands. He is oriented to person place and situation. Strength was diminished but symmetric. MEDICAL DECISION MAKING: The patient is a 77-year-old male who presented to the emergency department with his family member for an evaluation of back pain. The patient does have a history of prostate cancer. His pain has been ongoing for approximately 1 week but significantly worsened earlier today. The patient was unable to walk so his significant other called 911. He was in pain upon arrival. He was treated with pain medication. He was also treated with IV fluids as the patient's significant other felt he may be dehydrated. He was found to be in urinary retention. Giles catheter was placed. I discussed the patient's laboratory and radiographic studies with him and his significant other. He was also found to have some changes to his EKG compared to his previous EKG. Troponin was slightly elevated. It is possible there is something underlying to cause the patient's presentation today that could be cardiac related. There is no obvious metastatic disease noted on radiographic studies. It is possible that his pain was more from the urinary retention as well. I discussed patient's condition with the on-call [facility] hospice. I feel he would benefit from further inpatient management. Triage Nursing notes reviewed. Prior medical records reviewed Vital Signs: reviewed and remarkable for no significant abnormalities Differential diagnosis: Musculoskeletal, disc herniation, fracture, metastatic disease, cord compression, discitis, sciatica, cauda equina, infection, aortic disease, renal colic, gastrointestinal, as well as other pathologies. ER treatment provided: See below Diagnostics interpreted by me: ECG: EKG was obtained in the emergency department. My interpretation is sinus tachycardia 113 bpm. PVCs were noted. Anterior Q waves were also appreciated. This was compared to a tracing from December 01, 2018. The anterior Q waves are new compared to the previous tracing. Cardiac Monitoring: An order was placed for continuous cardiac monitoring. The monitor shows a rate of with 91 bpm with sinus rhythm. Laboratory studies: As stated above and show below. Imaging studies: See radiologist report below. I did independently review the patient's radiographic studies Consultation(s): I discussed this case with Dr. Carrillo who is on-call for the [facility] hospitalist group. Past Med/Surg History Medical History Anxiety Aortic aneurysm, abdominal s/p stent graft repair 2010 Bradycardia ASYMPTOMATIC ON BETA JENNIFER GERD (gastroesophageal reflux disease) CONTROLLED Glaucoma Hyperlipidemia Hypertension Male stress incontinence Metastatic castration-resistant adenocarcinoma of prostate Obesity Surgical History History of abdominal aortic aneurysm repair 2010 History of cataract extraction with lens replacement History of liver biopsy History of prostate biopsy 11/09/18 History of prostatectomy W/ BL PELVIC LYMPH NODE DISSECTION AND BLADDER NECK RECONSTRUCTION 12/15/2018 [facility] - MAC #4, ETT #8, HiLo Oral, Grade 1 View History of umbilical hernia repair S/P excision of lipoma FOREHEAD Family History Mother , Passed age 78 of Breast Cancer No problems noted. Father , Passed age 78 of Heart Disease No problems noted. Sister , Passed age 76 of Breast Cancer No problems noted. Sister No problems noted. Sister No problems noted. Sister No problems noted. Brother Myocardial infarction Aunt , Fraternal - Passed in 60's/70's of Breast CA No problems noted. Grandmother (Maternal) , Passed in 70's of Breast CA No problems noted. Son No problems noted. Son No problems noted. Son No problems noted. Daughter No problems noted. 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 Feels Safe at Home: Yes caffeine: Yes (4+ cups of coffee/day ) during the past year weight has: remained stable Assistive Devices: Walker Allergies Allergies Allergy/AdvReac Type Severity Reaction Status Date / Time brimonidine [From Combigan] Allergy Intermediate Rash Verified 10/05/22 16:06 timolol [From Combigan] Allergy Intermediate Rash Verified 10/05/22 16:06 oregano Allergy Gastrointestinal Verified 10/05/22 16:06 Upset kareem Allergy Gastrointestinal Verified 10/05/22 16:06 Upset Home Meds Home Medications Medication Instructions Recorded Confirmed atorvastatin 40 mg tablet 40 mg PO QPM 10/13/18 10/05/22 metoprolol succinate 50 mg 50 mg PO QAM 10/13/18 10/05/22 tablet,extended release 24 hr pantoprazole 40 mg tablet,delayed 40 mg PO QAM 10/13/18 10/05/22 release polyethylene glycol 3350 17 gram 17 g PO HS PRN Constipation 10/13/18 10/05/22 oral powder packet (Miralax) dorzolamide 22.3 mg-timolol 6.8 1 drp OPB DAILY 11/17/18 10/05/22 mg/mL eye drops (Cosopt) latanoprost 0.005 % eye drops 1 drp OPB DAILY 11/17/18 10/05/22 (Xalatan) lorazepam 0.5 mg tablet 0.5 mg PO BID PRN Anxiety 11/25/18 10/05/22 enzalutamide 40 mg tablet (Xtandi) 40 mg PO UD 10/05/22 10/05/22 mirtazapine 7.5 mg tablet 7.5 mg PO HS 10/05/22 10/05/22 ondansetron HCl 8 mg tablet 8 mg PO Q8H PRN Nausea 10/05/22 10/05/22 oxycodone 5 mg tablet 5 mg PO Q4H PRN Pain 10/05/22 10/05/22 Previous Rx's Medication Instructions Recorded leuprolide acetate (6 month) 45 mg 45 mg IM UD #1 ea 04/10/21 intramuscular syringe kit (Lupron Depot) Results & Data (ED) Vital Signs Vital Signs - 24 hr 10/05/22 13:00 Pulse Rate [Right Finger] 107 H Pulse Rhythm [Right Finger] Regular Pulse Strength [Right Finger] Normal Respiratory Rate 18 Respiratory Effort / Characteristics Non-Labored Respiratory Depth Normal Respiratory Pattern Regular Blood Pressure [Right Arm] 112/56 L Blood Pressure Mean [Right Arm] 74 Blood Pressure Position [Right Arm] Lying Pulse Oximetry 93 Oxygen Delivery Method Room Air Home Medications Current Medication List: was personally reviewed by me Laboratory Data Attestation: I reviewed the patient's lab results. 10/05/22 11:35 10/05/22 11:35 Lab Results 10/05/22 10/05/22 10/05/22 Range/Units 11:35 11:35 11:35 WBC 6.16 (4.8-10.8) K/ul RBC 3.90 L (4.63-6.08) M/uL Hgb 11.3 L (14.0-18.0) g/dl Hct 33.9 L (40.1-51.0) % MCV 86.9 (80.0-100.0) fL MCH 29.0 (25.0-34.0) pg MCHC 33.3 (32.0-36.0) g/dL RDW Std Deviation 58.3 H (36.4-46.3) fL RDW Coeff of Lucian 18.3 H (11.5-14.5) % Plt Count 69 L (130-400) K/uL MPV 9.6 (9.4-12.4) fL Immature Gran % (Auto) 0.5 % Neut % (Auto) 84.6 % Lymph % (Auto) 9.3 % [place] % (Auto) 5.4 % Eos % (Auto) 0.0 % Baso % (Auto) 0.2 % Neut # (Auto) 5.22 (1.4-6.5) K/uL Lymph # (Auto) 0.57 L (1.2-3.4) K/uL [place] # (Auto) 0.33 (0.24-0.82) K/uL Eos # (Auto) 0.00 (0-0.50) K/uL Baso # (Auto) 0.01 (0-0.2) K/uL Immature Gran # (Auto) 0.03 H (0.00-0.02) K/uL PT 12.0 (9.0-12.0) Seconds INR 1.1 (0.9-1.1) APTT 35.3 H (21.0-31.0) Seconds PTT Ratio 1.3 Sodium 126 L (136-145) mmol/L Potassium 4.1 (3.5-5.1) mmol/L Chloride 96 L (98-107) mmol/L Carbon Dioxide 23 (21-32) mmol/L Anion Gap 7 (3-11) BUN 20 (6-23) mg/dl Creatinine 1.18 (0.6-1.4) mg/dl Est Cr Clr Drug Dosing 63.8 ml/min Est GFR ( Amer) 69.5 ml/min Est GFR (Non-Af Amer) 60.0 ml/min BUN/Creatinine Ratio 16.9 (10-20) Glucose 110 H (70-99(Fasting)) mg/dl Osmolality (280-300) mOsm/kg Calcium 8.0 L (8.5-10.1) mg/dl Total Bilirubin 1.0 (0.2-1.0) mg/dl AST 26 (13-39) U/L ALT 9 (7-52) U/L Alkaline Phosphatase 146 H (34-104) U/L Troponin I High Sens 69.0 H* (0-20) pg/ml Total Protein 6.3 (6.0-8.3) gm/dl Albumin 2.6 L (3.4-5.0) gm/dl Globulin 3.7 (2.5-4.0) gm/dl Albumin/Globulin Ratio 0.7 L (0.9-2) Lipase 22 (11-82) U/L SARS-CoV-2, RNA, NAAT (NEGATIVE) 10/05/22 10/05/22 Range/Units 11:35 11:54 WBC (4.8-10.8) K/ul RBC (4.63-6.08) M/uL Hgb (14.0-18.0) g/dl Hct (40.1-51.0) % MCV (80.0-100.0) fL MCH (25.0-34.0) pg MCHC (32.0-36.0) g/dL RDW Std Deviation (36.4-46.3) fL RDW Coeff of Lucian (11.5-14.5) % Plt Count (130-400) K/uL MPV (9.4-12.4) fL Immature Gran % (Auto) % Neut % (Auto) % Lymph % (Auto) % [place] % (Auto) % Eos % (Auto) % Baso % (Auto) % Neut # (Auto) (1.4-6.5) K/uL Lymph # (Auto) (1.2-3.4) K/uL [place] # (Auto) (0.24-0.82) K/uL Eos # (Auto) (0-0.50) K/uL Baso # (Auto) (0-0.2) K/uL Immature Gran # (Auto) (0.00-0.02) K/uL PT (9.0-12.0) Seconds INR (0.9-1.1) APTT (21.0-31.0) Seconds PTT Ratio Sodium (136-145) mmol/L Potassium (3.5-5.1) mmol/L Chloride (98-107) mmol/L Carbon Dioxide (21-32) mmol/L Anion Gap (3-11) BUN (6-23) mg/dl Creatinine (0.6-1.4) mg/dl Est Cr Clr Drug Dosing ml/min Est GFR ( Amer) ml/min Est GFR (Non-Af Amer) ml/min BUN/Creatinine Ratio (10-20) Glucose (70-99(Fasting)) mg/dl Osmolality 263 L (280-300) mOsm/kg Calcium (8.5-10.1) mg/dl Total Bilirubin (0.2-1.0) mg/dl AST (13-39) U/L ALT (7-52) U/L Alkaline Phosphatase (34-104) U/L Troponin I High Sens (0-20) pg/ml Total Protein (6.0-8.3) gm/dl Albumin (3.4-5.0) gm/dl Globulin (2.5-4.0) gm/dl Albumin/Globulin Ratio (0.9-2) Lipase (11-82) U/L SARS-CoV-2, RNA, NAAT NEGATIVE (NEGATIVE) Administered Medications Atorvastatin Calcium (Atorvastatin 40 Mg Tab) 40 mg PO QPM BRISA Stop: 11/04/22 20:59 Last Admin: 10/05/22 20:14 Dose: 40 mg Documented By: LOREN Enoxaparin Sodium (Enoxaparin Inj 40 Mg/0.4 Ml Syr) 40 mg SQ Q24H BRISA Stop: 11/04/22 17:59 Last Admin: 10/05/22 18:29 Dose: 40 mg Documented By: TJ Sodium Chloride (Nss 1000ml) 1,000 mls @ 100 mls/hr IV .Q10H BRISA Stop: 11/04/22 17:29 Last Admin: 10/06/22 02:46 Dose: 100 mls/hr Documented By: Infusion: 10/06/22 02:45 Dose: 0 mls/hr Documented By: Admin: 10/05/22 17:59 Dose: 100 mls/hr Documented By: JAMIE Latanoprost (Latanoprost 0.005% Op Soln 2.5 Ml Btl) 1 drops OPB HS BRISA Stop: 11/04/22 20:59 Last Admin: 10/05/22 20:12 Dose: 1 drops Documented By: LOREN Mirtazapine (Mirtazapine Tab 15 Mg Tab) 7.5 mg PO HS BRISA Stop: 11/04/22 20:59 Last Admin: 10/05/22 20:12 Dose: 7.5 mg Documented By: LOREN Miscellaneous (Enzalutamide [Xtandi] 40 Mg Tablet ~ Order Awaiting Action) 1 each N/A QS BRISA Stop: 11/05/22 00:00 Last Admin: 10/06/22 10:17 Dose: Not Given Documented By: Admin: 10/06/22 00:27 Dose: Not Given Documented By: LOREN Oxycodone HCl (Oxycodone Hcl Ir 5 Mg Tab (Immediate Release)) 5 mg PO Q4H PRN PRN Reason: MODERATE Pain (4,5,6) & Pre PT Stop: 10/19/22 18:36 Last Admin: 10/05/22 19:37 Dose: 5 mg Documented By: LOREN Discontinued Medications Diphenhydramine HCl (Diphenhydramine 50 Mg/Ml Vial) 25 mg IV NOW STA Stop: 10/06/22 09:13 Last Admin: 10/06/22 10:19 Dose: 25 mg Documented By: ALICE Gadobutrol (Gadobutrol 10ml Vial) 9.5 ml IV ONCE ONE Stop: 10/06/22 11:49 Last Admin: 10/06/22 11:49 Dose: 9.5 ml Documented By: AURELIA Sodium Chloride (Nss 1000ml) 1,000 mls @ 999 mls/hr IV .Q1H1M STA Stop: 10/05/22 12:48 Last Infusion: 10/05/22 13:14 Dose: 0 mls/hr Documented By: Admin: 10/05/22 11:56 Dose: 999 mls/hr Documented By: OL Morphine Sulfate (Morphine Sulfate 4 Mg/Ml 1 Ml Carp\Vial) 4 mg IV NOW STA Stop: 10/05/22 11:49 Last Admin: 10/05/22 11:56 Dose: 4 mg Documented By: OL Ondansetron HCl (Ondansetron Inj 2 Mg/Ml 2 Ml Vial) 4 mg IV NOW STA Stop: 10/05/22 11:49 Last Admin: 10/05/22 11:56 Dose: 4 mg Documented By: OL Imaging Data Radiologist's Impression: Chest X-Ray 10/05/22 00:00 XR chest 1V portable HISTORY: 77 years-old Male Chest pain, nonspecific acute chest pain COMPARISON: Chest CT 08/09/2022 TECHNIQUE: AP view of the chest FINDINGS: Cardiac silhouette is enlarged. Left subclavian Hsqqyv-e-Teks catheter is unchanged. No pneumothorax, pleural effusion or airspace consolidation. Emphysema. Mild chronic interstitial coarsening of the lung bases. Bones appear grossly intact. IMPRESSION: 1. Cardiomegaly without acute process. 2. Pulmonary emphysema. ACT 112: Negative or not required by law. The above report was generated using voice recognition software. It may contain grammatical, syntax or spelling errors. Electronically signed by: Bharath Ahuja M.D. 10/05/2022 1:[address] 10/05/22 11:48 CT head/brain wo con CLINICAL HISTORY: 77 years-old Male with AMS. Acutely altered mental status TECHNIQUE: Multiple axial CT images of the head were obtained without contrast. A dose lowering technique was utilized adhering to the principles of ALARA. CT DOSE: 3209.80 mGy.cm COMPARISON: None. FINDINGS: No acute intracranial hemorrhage, midline shift, intracranial mass, hydrocephalus, territorial ischemia or abnormal extra-axial collection. Motion degraded exam. Involutional changes of the brain parenchyma. Mild ventriculomegaly, likely on an ex vacuo basis. The calvarium is intact. Prior bilateral lens repair. The paranasal sinuses, mastoid air cells, and middle ear cavities are clear. IMPRESSION: No acute intracranial abnormality. ACT 112: Negative or not required by law. The above report was generated using voice recognition software. It may contain grammatical, syntax or spelling errors. Electronically signed by: Bharath Ahuja M.D. 10/05/2022 12:[address] 10/05/22 11:48 CT lumbar spine wo con, CT pelvis wo con HISTORY: 77 years-old Male pain, hx of CA acute pain of the low back and pelvis without reported trauma COMPARISON: CT abdomen and pelvis 08/09/2022 TECHNIQUE: Multiple axial CT images of the lumbar spine and bony pelvis were obtained without the use of IV contrast. A dose lowering technique was used consistent with the principals of ALARA. FINDINGS: LUMBAR SPINE: Multilevel vertebral disc space narrowing, moderate to severe at L4-L5 and L5- S1. Chronic appearing Schmorl's nodes. No acute fracture, subluxation or endplate erosion identified. Moderate to severe multilevel facet arthrosis. No marrow replacing process identified. Mid lumbar levoscoliosis. The superior aspect of the L1 vertebral body and the T12-L1 intervertebral disc space partially excluded from the [id number]. No paravertebral edema. Multilevel annular disc bulging. No high-grade central canal stenosis identified. There is at least mild central canal stenosis at several levels. Mild to moderate neural foraminal narrowing throughout. Infrarenal abdominal aortic aneurysm with aortobiiliac stent graft. Left renal cyst. Distended urinary bladder with stranding within the left hemipelvis. PELVIS: Distended urinary bladder. Trace ascites. Scattered air-fluid levels are noted within nondilated loops of small bowel. Colonic diverticulosis. The appendix is not definitively seen. The appendix appears surgically absent. No acute fracture, dislocation, osseous erosion or marrow replacing process. IMPRESSION: 1. No acute fracture, subluxation or evidence of osseous metastasis. 2. Moderately distended urinary bladder. 3. Prostatectomy. 4. Trace pelvic ascites. 5. Additional findings as above. ACT 11: Negative or not required by law. The above report was generated using voice recognition software. It may contain grammatical, syntax or spelling errors. Electronically signed by: Bharath Ahuja M.D. 10/05/2022 12:[address] 10/05/22 11:48 CT lumbar spine wo con, CT pelvis wo con HISTORY: 77 years-old Male pain, hx of CA acute pain of the low back and pelvis without reported trauma COMPARISON: CT abdomen and pelvis 08/09/2022 TECHNIQUE: Multiple axial CT images of the lumbar spine and bony pelvis were obtained without the use of IV contrast. A dose lowering technique was used consistent with the principals of ABDON. FINDINGS: LUMBAR SPINE: Multilevel vertebral disc space narrowing, moderate to severe at L4-L5 and L5- S1. Chronic appearing Schmorl's nodes. No acute fracture, subluxation or endplate erosion identified. Moderate to severe multilevel facet arthrosis. No marrow replacing process identified. Mid lumbar levoscoliosis. The superior aspect of the L1 vertebral body and the T12-L1 intervertebral disc space partially excluded from the [id number]. No paravertebral edema. Multilevel annular disc bulging. No high-grade central canal stenosis identified. There is at least mild central canal stenosis at several levels. Mild to moderate neural foraminal narrowing throughout. Infrarenal abdominal aortic aneurysm with aortobiiliac stent graft. Left renal cyst. Distended urinary bladder with stranding within the left hemipelvis. PELVIS: Distended urinary bladder. Trace ascites. Scattered air-fluid levels are noted within nondilated loops of small bowel. Colonic diverticulosis. The appendix is not definitively seen. The appendix appears surgically absent. No acute fracture, dislocation, osseous erosion or marrow replacing process. IMPRESSION: 1. No acute fracture, subluxation or evidence of osseous metastasis. 2. Moderately distended urinary bladder. 3. Prostatectomy. 4. Trace pelvic ascites. 5. Additional findings as above. ACT 11: Negative or not required by law. The above report was generated using voice recognition software. It may contain grammatical, syntax or spelling errors. Electronically signed by: Bharath Ahuja M.D. 10/05/2022 12:32 PM Discharge Plan Visit Data Chief Complaint: Illness Stated Complaint: BACK PAIN, INCREASE CONFUSION, UNABLE TO AMBULATE ED Provider: Julio Kitchen Discharge Problem: Acute urinary retention, Hyponatremia, Back pain, Abnormal EKG, Elevated troponin I level Patient Disposition: Admitted As Inpatient Discharge Instructions Interventions: ED Discharge Assessment Last Done: 10/05/22 15:15
[2022-10-05 12:05] LABS: Hematocrit (blood only) 33.9 % (40.1-51.0); Hemoglobin 11.3 g/dl (14.0-18.0); Mean Corpuscular Hgb Conc 33.3 g/dL (32.0-36.0); Mean Corpuscular Volume 86.9 fL (80.0-100.0); Mean Platelet Volume 9.6 fL (9.4-12.4); Platelet Count 69 K/uL (130-400); RDW Coefficient of Variation 18.3 % (11.5-14.5); RDW Standard Deviation 58.3 fL (36.4-46.3); White Blood Count 6.16 K/ul (4.8-10.8)
[2022-10-05 12:20] LABS: Albumin Globulin Ratio 0.7 (0.9-2); Albumin Level 2.6 gm/dl (3.4-5.0); BUN Creatinine Ratio 16.9 (10-20); Creatinine Clr Calc Pharmacy 63.8 ml/min; Est GFR (African American) 69.5 ml/min; Globulin 3.7 gm/dl (2.5-4.0); Potassium 4.1 mmol/L (3.5-5.1); Total Protein 6.3 gm/dl (6.0-8.3)
[2022-10-05 12:22] LABS: INR 1.1 (0.9-1.1); Partial Thromboplastin Ratio 1.3; Partial Thromboplastin Time 35.3 Seconds (21.0-31.0)
--- NOTE | 2022-10-05 12:25 | CT Scan Report ---
CT head/brain wo con CLINICAL HISTORY: 77 years-old Male with AMS. Acutely altered mental status TECHNIQUE: Multiple axial CT images of the head were obtained without contrast. A dose lowering tech nique was utilized adhering to the principles of ALARA. CT DOSE: 3209.80 mGy.cm COMPARISON: None. FINDINGS: No acute intracranial hemorrhage, midline shift, intracranial mass, hydrocephalus, territorial ischem ia or abnormal extra-axial collection. Motion degraded exam. Involutional changes of the brain parenc hyma. Mild ventriculomegaly, likely on an ex vacuo basis. The calvarium is intact. Prior bilateral lens repair. The paranasal sinuses, mastoid air cells, and m iddle ear cavities are clear. IMPRESSION: No acute intracranial abnormality. ACT 112: Negative or not required by law. The above report was generated using voice recognition software. It may contain grammatical, syntax o r spelling errors. Electronically signed by: Bharath Ahuja M.D. 10/05/2022 12:23 PM
[2022-10-05 12:28] LABS: Basophils # (auto) 0.01 K/uL (0-0.2); Basophils % (auto) 0.2 %; Immature Granulocytes # (auto) 0.03 K/uL (0.00-0.02); Immature Granulocytes % (auto) 0.5 %; Lymphocytes # (auto) 0.57 K/uL (1.2-3.4); Lymphocytes % (auto) 9.3 %; Monocytes # (auto) 0.33 K/uL (0.24-0.82); Monocytes % (auto) 5.4 %; Neutrophils # (auto) 5.22 K/uL (1.4-6.5); Neutrophils % (auto) 84.6 %
--- NOTE | 2022-10-05 12:35 | CT Scan Report ---
CT lumbar spine wo con, CT pelvis wo con HISTORY: 77 years-old Male pain, hx of CA acute pain of the low back and pelvis without reported tra francisco COMPARISON: CT abdomen and pelvis 08/09/2022 TECHNIQUE: Multiple axial CT images of the lumbar spine and bony pelvis were obtained without the use of IV contrast. A dose lowering technique was used consistent with the principals of ALARA. FINDINGS: LUMBAR SPINE: Multilevel vertebral disc space narrowing, moderate to severe at L4-L5 and L5-S1. Chronic appearing Schmorl's nodes. No acute fracture, subluxation or endplate erosion identified. Moderate to severe mu ltilevel facet arthrosis. No marrow replacing process identified. Mid lumbar levoscoliosis. The super ior aspect of the L1 vertebral body and the T12-L1 intervertebral disc space partially excluded from the [id number]. No paravertebral edema. Multilevel annular disc bulging. No high-grade central canal stenosis identif ied. There is at least mild central canal stenosis at several levels. Mild to moderate neural foramin al narrowing throughout. Infrarenal abdominal aortic aneurysm with aortobiiliac stent graft. Left moon al cyst. Distended urinary bladder with stranding within the left hemipelvis. PELVIS: Distended urinary bladder. Trace ascites. Scattered air-fluid levels are noted within nondilated loop s of small bowel. Colonic diverticulosis. The appendix is not definitively seen. The appendix appears surgically absent. No acute fracture, dislocation, osseous erosion or marrow replacing process. IMPRESSION: 1. No acute fracture, subluxation or evidence of osseous metastasis. 2. Moderately distended urinary bladder. 3. Prostatectomy. 4. Trace pelvic ascites. 5. Additional findings as above. ACT 11: Negative or not required by law. The above report was generated using voice recognition software. It may contain grammatical, syntax o r spelling errors. Electronically signed by: Bharath Ahuja M.D. 10/05/2022 12:32 PM
--- NOTE | 2022-10-05 13:24 | XRay Report ---
XR chest 1V portable HISTORY: 77 years-old Male Chest pain, nonspecific acute chest pain COMPARISON: Chest CT 08/09/2022 TECHNIQUE: AP view of the chest FINDINGS: Cardiac silhouette is enlarged. Left subclavian Shtqdn-v-Bifr catheter is unchanged. No pneumothorax, pleural effusion or airspace consolidation. Emphysema. Mild chronic interstitial coarsening of the l lala bases. Bones appear grossly intact. IMPRESSION: 1. Cardiomegaly without acute process. 2. Pulmonary emphysema. ACT 112: Negative or not required by law. The above report was generated using voice recognition software. It may contain grammatical, syntax o r spelling errors. Electronically signed by: Bharath Ahuja M.D. 10/05/2022 1:23 PM
--- NOTE | 2022-10-05 13:50 | History & Physical Report ---
Date of Service October 05, 2022 Assessment & Plan (1) Back pain: Plan: - Ongoing in low back x 2 weeks, recently prescribed oxycodone by oncology yesterday, had 2 doses with minimal relief. - No red flag s/s: no radicular pain, saddle anesthesia, fecal retention; with distended bladder today but has been urinating normally at home the past few days. - Lumbar/pelvis CT: No acute fracture, subluxation or evidence of osseous metastasis. Moderately distended urinary bladder. Prostatectomy. Trace pelvic ascites. - Differential at this point includes progression of metastatic disease vs acute on chronic LBP with known hepatic, right acetabular lesion vs urinary retention. - Patient originally given IV morphine in the ED with some resolution of pain, and then a Giles catheter was placed with nearly 1L drained from bladder. Patient notes feeling much better after this. -Improvement of back pain upon emptying bladder makes urinary retention most likely cause of back pain, however still have to consider what caused urinary retention in the first place. It is possible that recently starting oxycodone led to the urinary retention, as well as the fatigue, weakness, difficulty getting himself out of bed. No other signs/symptoms of cauda equina, i.e. no saddle anesthesia, fecal retention or incontinence, urinary incontinence, however given his history of metastatic disease it would not be unreasonable to obtain lumbar MRI, as ordered by his primary oncologist to be done tomorrow at [facility]. (2) Elevated troponin: Plan: - HS trop 69, with new Q waves and T wave inversions. - Patient without any chest pain. - Will trend troponin--> downtrending on 2 hour repeat - Update echo, last done in April 2021: normal LV size with hyperdynamic systolic function, EF > 70%, no regional wma, moderate LVH. (3) Hyponatremia: Plan: - 126, downtrending from 130 over past two months. - SIADH 2/2 cancer/pain, poor PO intake? - Serum and urine osm, urine Na pending. (4) Metastatic castration-resistant adenocarcinoma of prostate: Plan: - [place] [facility] [place] - Nuclear scan 09/19: new focus of PSMA Locametz at the anterior right acetabulum and new site or moderate uptake in inferior sternum suspicioius for metastatic disease. Interval increase in size and PSMA Locametz uptake in all 3 hepatic lesions exhibiting local necrosis. - Lumbar/pelvis CT today is nto showing any new metastatic disease. - Work-up for low back pain as above. (5) Aortic aneurysm, abdominal: Plan: - s/p stenting in 2010. - CT was considered, however he is not reporting any thoracic back pain/pain between shoulder blades. And back pain resolved with relieving distended bladder, making his aneurysm etiology of his pain very unlikely. (6) Hypertension: Plan: - Continue metoprolol, no longer on lisinopril due to hypotension. (7) Hyperlipidemia: Plan: - Continue atorvastatin. (8) GERD (gastroesophageal reflux disease): Plan: - Continue pantoprazole. (9) Anxiety: Plan: - Continue lorazepam 0.5 mg BID prn. Plan - Admit to medicine w/ telemetry. - SCDs, Lovenox for VTE ppx. - Full Code. History of Present Illness Chief Complaint: back pain x 1 week Primary Care Provider: Maggy Mcneal MD Domingo Longo is a 77-year-old male with a past medical history significant for metastatic prostate cancer, chemotherapy induced pancytopenia, hyponatremia, hypertension, hyperlipidemia, GERD, prediabetes, AAA s/p stenting in 2010, and anxiety who is presenting today with back pain. He has had worsening back pain for the past week and was prescribed oxycodone recently by his oncologist. Since taking it, he has become very weak and unable to get himself out of bed and perform activities at home. Also noted to be confused and lethargic by his as she is not as responsive as he typically is. No falls at home. Upon presentation, he has been tachycardic with HR 1001 10, otherwise vital signs within normal limits and stable. Labs are notable for a sodium of 126, slowly downtrending from 130 over the past 2 months. Also calcium low at 8.0, troponin 69. He has a stable anemia, Hgb 11.3. Head CT unremarkable, lumbar and pelvis CT with distended bladder, trace ascites, no acute fractures or subluxation or other acute process. CXR shows emphysema, no other acute process. Allergies Allergy/AdvReac Type Severity Reaction Status Date / Time brimonidine [From Combigan] Allergy Intermediate Rash Verified 10/05/22 16:06 timolol [From Jackelyn] Allergy Intermediate Rash Verified 10/05/22 16:06 oregano Allergy Gastrointestinal Verified 10/05/22 16:06 Upset kareem Allergy Gastrointestinal Verified 10/05/22 16:06 Upset Home Medications Medication Instructions Recorded Confirmed Type atorvastatin 40 mg tablet 40 mg PO QPM 10/13/18 10/05/22 History metoprolol succinate 50 mg 50 mg PO QAM 10/13/18 10/05/22 History tablet,extended release 24 hr pantoprazole 40 mg tablet,delayed 40 mg PO QAM 10/13/18 10/05/22 History release polyethylene glycol 3350 17 gram 17 g PO HS PRN Constipation 10/13/18 10/05/22 History oral powder packet (Miralax) dorzolamide 22.3 mg-timolol 6.8 1 drp OPB DAILY 11/17/18 10/05/22 History mg/mL eye drops (Cosopt) latanoprost 0.005 % eye drops 1 drp OPB DAILY 11/17/18 10/05/22 History (Xalatan) lorazepam 0.5 mg tablet 0.5 mg PO BID PRN Anxiety 11/25/18 10/05/22 History leuprolide acetate (6 month) 45 mg 45 mg IM UD #1 ea 04/10/21 10/05/22 Rx intramuscular syringe kit (Lupron Depot) enzalutamide 40 mg tablet (Xtandi) 40 mg PO UD 10/05/22 10/05/22 History mirtazapine 7.5 mg tablet 7.5 mg PO HS 10/05/22 10/05/22 History ondansetron HCl 8 mg tablet 8 mg PO Q8H PRN Nausea 10/05/22 10/05/22 History oxycodone 5 mg tablet 5 mg PO Q4H PRN Pain 10/05/22 10/05/22 History Past Med/Surg History Medical History Anxiety Aortic aneurysm, abdominal s/p stent graft repair 2010 Bradycardia ASYMPTOMATIC ON BETA JENNIFER GERD (gastroesophageal reflux disease) CONTROLLED Glaucoma Hyperlipidemia Hypertension Male stress incontinence Metastatic castration-resistant adenocarcinoma of prostate Obesity Surgical History History of abdominal aortic aneurysm repair 2010 History of cataract extraction with lens replacement History of liver biopsy History of prostate biopsy 11/09/18 History of prostatectomy W/ BL PELVIC LYMPH NODE DISSECTION AND BLADDER NECK RECONSTRUCTION 12/15/2018 [facility] - MAC #4, ETT #8, HiLo Oral, Grade 1 View History of umbilical hernia repair S/P excision of lipoma FOREHEAD Family History Mother , Passed age 78 of Breast Cancer No problems noted. Father , Passed age 78 of Heart Disease No problems noted. Sister , Passed age 76 of Breast Cancer No problems noted. Sister No problems noted. Sister No problems noted. Sister No problems noted. Brother Myocardial infarction Aunt , Fraternal - Passed in 60's/70's of Breast CA No problems noted. Grandmother (Maternal) , Passed in 70's of Breast CA No problems noted. Son No problems noted. Son No problems noted. Son No problems noted. Daughter No problems noted. 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 Feels Safe at Home: Yes caffeine: Yes (4+ cups of coffee/day ) during the past year weight has: remained stable Assistive Devices: Walker Review of Systems Review of Systems: Constitutional: fatigue, weakness x2 days; No fever/chills, weakness, fatigue, myalgias, anorexia, night sweats Eyes: No diplopia, no worsening or blurred vision ENT: normal hearing, no trouble swallowing Respiratory: No cough, sputum, dyspnea at rest or on exertion Cardiovascular: No chest pain, tightness or palpitations Abdomen: No pain, nausea, vomiting, diarrhea or constipation : Denies dysuria, hematuria, increased urgency/frequency, urinary retention Musculoskeletal: b/l low back pain intermittent but worse x 2 weeks w/o groin numbness, change in bowel or bladder habits; No joint pain, calf pain, swelling Neurologic: No weakness, numbness/tingling, or balance problems Psychiatric: No anxiety or depression Skin: No rash or itch Physical Exam Physical Exam: General: awake, alert, no apparent distress Head: Normocephalic, atraumatic ENT: PERRL, EOMI, no pharyngeal exudate, mucous membranes moist Chest: Clear to auscultation, on room air, no adventitious breath sounds Cardiac: Regular rate and rhythm, no murmur, no JVD, normal peripheral pulses, good capillary refill Abdominal: NABS x 4 quadrants, soft, nontender to palpation, no rebound, guarding or tenderness Extremities: LBP worse w/ b/l leg raise, without radiation into legs, no foot drop or focal weakness, numbness, saddle anesthesia; Normal inspection, no peripheral edema or erythema, calfs nontender to palpation Psych: Normal mood and affect Neuro: AAO x 3, strength intact bilaterally and rated 5/5, no motor deficits, speech is clear, no peripheral sensory deficits Skin: no rash or erythema Results & Data Results & Data ([facility]) Vital Signs (Past 12 Hours) Vital Signs Temp Pulse Pulse Resp BP BP Pulse Ox 10/05/22 13:00 107 H 18 112/56 L 93 10/05/22 11:49 92 10/05/22 11:35 37.2 C 110 H 14 126/60 91 O2 Del Method 10/05/22 13:00 Room Air 10/05/22 11:49 Room Air 10/05/22 11:35 Room Air Laboratory Results Abnormal lab results 10/05/22 10/05/22 10/05/22 Range/Units 11:35 11:35 11:35 RBC 3.90 L (4.63-6.08) M/uL Hgb 11.3 L (14.0-18.0) g/dl Hct 33.9 L (40.1-51.0) % RDW Std Deviation 58.3 H (36.4-46.3) fL RDW Coeff of Lucian 18.3 H (11.5-14.5) % Plt Count 69 L (130-400) K/uL Lymph # (Auto) 0.57 L (1.2-3.4) K/uL Immature Gran # (Auto) 0.03 H (0.00-0.02) K/uL APTT 35.3 H (21.0-31.0) Seconds Sodium 126 L (136-145) mmol/L Chloride 96 L (98-107) mmol/L Glucose 110 H (70-99(Fasting)) mg/dl Calcium 8.0 L (8.5-10.1) mg/dl Alkaline Phosphatase 146 H (34-104) U/L Troponin I High Sens 69.0 H* (0-20) pg/ml Albumin 2.6 L (3.4-5.0) gm/dl Albumin/Globulin Ratio 0.7 L (0.9-2) Diagnostic Findings Chest X-Ray 10/05/22 00:00 XR chest 1V portable HISTORY: 77 years-old Male Chest pain, nonspecific acute chest pain COMPARISON: Chest CT 08/09/2022 TECHNIQUE: AP view of the chest FINDINGS: Cardiac silhouette is enlarged. Left subclavian Jklysg-l-Ygll catheter is unchanged. No pneumothorax, pleural effusion or airspace consolidation. Emphysema. Mild chronic interstitial coarsening of the lung bases. Bones appear grossly intact. IMPRESSION: 1. Cardiomegaly without acute process. 2. Pulmonary emphysema. ACT 112: Negative or not required by law. The above report was generated using voice recognition software. It may contain grammatical, syntax or spelling errors. Electronically signed by: Bharath Ahuja M.D. 10/05/2022 1:[address] 10/05/22 11:48 CT head/brain wo con CLINICAL HISTORY: 77 years-old Male with AMS. Acutely altered mental status TECHNIQUE: Multiple axial CT images of the head were obtained without contrast. A dose lowering technique was utilized adhering to the principles of ALARA. CT DOSE: 3209.80 mGy.cm COMPARISON: None. FINDINGS: No acute intracranial hemorrhage, midline shift, intracranial mass, hydrocephalus, territorial ischemia or abnormal extra-axial collection. Motion degraded exam. Involutional changes of the brain parenchyma. Mild ventriculomegaly, likely on an ex vacuo basis. The calvarium is intact. Prior bilateral lens repair. The paranasal sinuses, mastoid air cells, and middle ear cavities are clear. IMPRESSION: No acute intracranial abnormality. ACT 112: Negative or not required by law. The above report was generated using voice recognition software. It may contain grammatical, syntax or spelling errors. Electronically signed by: Bharath Ahuja M.D. 10/05/2022 12:[address] 10/05/22 11:48 CT lumbar spine wo con, CT pelvis wo con HISTORY: 77 years-old Male pain, hx of CA acute pain of the low back and pelvis without reported trauma COMPARISON: CT abdomen and pelvis 08/09/2022 TECHNIQUE: Multiple axial CT images of the lumbar spine and bony pelvis were obtained without the use of IV contrast. A dose lowering technique was used consistent with the principals of ALARA. FINDINGS: LUMBAR SPINE: Multilevel vertebral disc space narrowing, moderate to severe at L4-L5 and L5- S1. Chronic appearing Schmorl's nodes. No acute fracture, subluxation or endplate erosion identified. Moderate to severe multilevel facet arthrosis. No marrow replacing process identified. Mid lumbar levoscoliosis. The superior aspect of the L1 vertebral body and the T12-L1 intervertebral disc space partially excluded from the [id number]-[id number]. No paravertebral edema. Multilevel annular disc bulging. No high-grade central canal stenosis identified. There is at least mild central canal stenosis at several levels. Mild to moderate neural foraminal narrowing throughout. Infrarenal abdominal aortic aneurysm with aortobiiliac stent graft. Left renal cyst. Distended urinary bladder with stranding within the left hemipelvis. PELVIS: Distended urinary bladder. Trace ascites. Scattered air-fluid levels are noted within nondilated loops of small bowel. Colonic diverticulosis. The appendix is not definitively seen. The appendix appears surgically absent. No acute fracture, dislocation, osseous erosion or marrow replacing process. IMPRESSION: 1. No acute fracture, subluxation or evidence of osseous metastasis. 2. Moderately distended urinary bladder. 3. Prostatectomy. 4. Trace pelvic ascites. 5. Additional findings as above. ACT 11: Negative or not required by law. The above report was generated using voice recognition software. It may contain grammatical, syntax or spelling errors. Electronically signed by: Bharath Ahuja M.D. 10/05/2022 12:[address] 10/05/22 11:48 CT lumbar spine wo con, CT pelvis wo con HISTORY: 77 years-old Male pain, hx of CA acute pain of the low back and pelvis without reported trauma COMPARISON: CT abdomen and pelvis 08/09/2022 TECHNIQUE: Multiple axial CT images of the lumbar spine and bony pelvis were obtained without the use of IV contrast. A dose lowering technique was used consistent with the principals of ABDON. FINDINGS: LUMBAR SPINE: Multilevel vertebral disc space narrowing, moderate to severe at L4-L5 and L5- S1. Chronic appearing Schmorl's nodes. No acute fracture, subluxation or endplate erosion identified. Moderate to severe multilevel facet arthrosis. No marrow replacing process identified. Mid lumbar levoscoliosis. The superior aspect of the L1 vertebral body and the T12-L1 intervertebral disc space partially excluded from the [id number]. No paravertebral edema. Multilevel annular disc bulging. No high-grade central canal stenosis identified. There is at least mild central canal stenosis at several levels. Mild to moderate neural foraminal narrowing throughout. Infrarenal abdominal aortic aneurysm with aortobiiliac stent graft. Left renal cyst. Distended urinary bladder with stranding within the left hemipelvis. PELVIS: Distended urinary bladder. Trace ascites. Scattered air-fluid levels are noted within nondilated loops of small bowel. Colonic diverticulosis. The appendix is not definitively seen. The appendix appears surgically absent. No acute fracture, dislocation, osseous erosion or marrow replacing process. IMPRESSION: 1. No acute fracture, subluxation or evidence of osseous metastasis. 2. Moderately distended urinary bladder. 3. Prostatectomy. 4. Trace pelvic ascites. 5. Additional findings as above. ACT 11: Negative or not required by law. The above report was generated using voice recognition software. It may contain grammatical, syntax or spelling errors. Electronically signed by: Bharath Ahuja M.D. 10/05/2022 12:32 PM ECG Additional Comments: Poor data quality, interpretation may be adversely affected Sinus tachycardia with frequent Premature ventricular complexes Left axis deviation Septal infarct , age undetermined Abnormal ECG When compared with ECG of 01-DEC-2018 09:08, Premature ventricular complexes are now Present Vent. rate has increased BY 59 BPM Septal infarct is now Present Nonspecific T wave abnormality now evident in Inferior leads. Code Status & VTE Plan Code Status Full Code. Supervising Physician Co-Signing Physician Notes Jed Longo is a 77-year-old male with past medical history of hypertension, hyperlipidemia, GERD, metastatic adenocarcinoma of the prostate, urinary retention, and glaucoma with chronic hyponatremia approximately 130 last 125 who presented to the emergency department with worsening lower back pain which was improved with oxycodone but which ran out yesterday evening. Patient was unable to get out of bed this morning, and had increased confusion and lethargy without falls or injury and was referred to the ER for additional care. CXR was without acute process, evidence of emphysema and cardiomegaly are present. CThead with no acute changes. Lumbar spine CT shows no acute fracture, subluxation, or bony metastasis. Bladder is moderately distended, and trace pelvic ascites is present. He has no leukocytosis, hemoglobin is 11.3 from last 9.9, troponin is elevated to 69 on admission. COVID is negative. Last echo 04/2021 showed normal LV size with hyperdynamic systolic function of 70% with no regional wall motion abnormalities. Admitting EKG shows sinus tachycardia with PVCs, T wave inversions in V3/V4/V5, aVF and with anterior Q waves which are a new morphology change from prior. No ST segment depression/elevation. QTc 444. morphology change q waves in VBack pain nearly resolved after Giles placement, likely due to urinary retention. Prostate adeno cancer neurinoma with metastasis Urinary symptoms began in 2018 Shown to have left prostate mass, positive for prostate adenocarcinoma 10/2018 CT scans and bone scan 11/20/2018 negative for metastatic disease S/p prostatectomy 12/15/2018 with [facility] Mixed prostatic duct and high-grade acinar adenocarcinoma with focal lymphovascular invasion, extension into the bladder neck and seminal vesicles Restaging scans were obtained in anticipation of adjuvant radiation, multiple hepatic metastasis were appreciated Patient was seen for consultation at [facility], liver biopsy confirmed metastatic prostate adenocarcinoma Was started with leuprolide therapy; 6 cycles of Doxil Taxol 04/17/2019 - 07/18/2019. Post chemo was with serial PSA testing PSA was rising 10/2019 and January/2020, transition to Dr. Abdullahi at [facility] I from [facility]. Abiraterone therapy 08/2020 was initiated with prednisone Olaparib therapy started 05/23/2021 Carbazittaxel chemotherapy tolerating well 07/2022 follow-up PET med scan 09/04/2022: 3 hepatic lesions with central necrosis, new focus at right acetabulum likely compliance representative dealer of metastatic disease which was not appreciated on CTPET 08/2022: Was scheduled to start Perfecto radiotherapy 11/04/2022 Is with history of chemo induced pancytopenia, anorexia, hyponatremia Elevated troponin, EKG change Patient with significant morphology change on admission compared to last available . Anterior Q waves and T wave inversions are now seen. Patient does have a mildly elevated troponin without chest pain. Agree with trending troponin, obtain echo, follow on telemetry overnight. If no acute rise and remains asymptomatic, follow-up with cardiology as an outpatient. Agree with management of chronic issues as above PG Care Time/CCT Total # of Minutes Spent Total Time Spent with Patient: Total time spent is greater than 50% in coordination of care (as documented) at patient's floor/unit and/or counseling patient: Coding Level of Care Code 80621 INT INP/OBS CARE 3/75MIN Diagnoses Back pain M54.9 Elevated troponin R77.8 Hyponatremia E87.1 Metastatic castration-resistant adenocarcinoma of prostate C61; Z19.2 Aortic aneurysm, abdominal I71.40 Hypertension I10 Hyperlipidemia E78.5 GERD (gastroesophageal reflux disease) K21.9 Anxiety F41.9
[2022-10-05] MEDS ORDERED: ALUMINUM/MAGNESIUM SUSP 30 ML UDC PO PRN (16:48)
[2022-10-05] MEDS ORDERED: LORazepam 0.5 MG TAB PO PRN (16:48)
[2022-10-05] MEDS ORDERED: POLYETHYLENE (MIRALAX) 17 GM PACK PO PRN (16:48)
[2022-10-05] MEDS ORDERED: ONDANSETRON INJ 2 MG/ML 2 ML VIAL IV PRN (16:48)
[2022-10-05 17:45] LABS: Appearance Urine Clear (Clear); Bacteria Urine Automated Negative (Negative); Bilirubin Urine Negative (Negative); Blood Urine Negative (Negative); Color Urine Dark Yellow; Glucose Urine UA Negative (Negative); Ketones Urine Trace (Negative); Leukocyte Esterase Urine Negative (Negative); Nitrite Urine Negative (Negative); Protein Urine 2+ (Negative); RBC Urine Automated 0-4 /hpf (0-4); Specific Gravity Urine 1.021 (1.000-1.030); Urobilinogen Urine Negative (Negative); pH Urine 5.5 (4.5-7.5)
[2022-10-05] MEDS: SODIUM CHLORIDE 0.9% 1000ML 1,000 ML IV SCH (17:59)
[2022-10-05] MEDS ORDERED: Nursing to Pharmacy Communication SCH (18:15)
[2022-10-05] MEDS: ENOXAPARIN INJ 40 MG/0.4 ML SYR SQ SCH (18:29)
[2022-10-05] MEDS ORDERED: oxyCODONE HCL IR 5 MG TAB (IMMEDIATE RELEASE) PO PRN (18:37)
[2022-10-05] MEDS: oxyCODONE HCL IR 5 MG TAB (IMMEDIATE RELEASE) PO PRN (19:37)
[2022-10-05] MEDS: MIRTAZAPINE TAB 15 MG TAB PO SCH (20:12)
[2022-10-05] MEDS: LATANOPROST 0.005% OP SOLN 2.5 ML BTL OPB SCH (20:12)
[2022-10-05] MEDS: ATORVASTATIN 40 MG TAB PO SCH (20:14)
[2022-10-05] MEDS ORDERED: MIRTAZAPINE TAB 15 MG TAB PO SCH (21:00)
[2022-10-06 00:32] LABS: Appearance Urine Clear (Clear); Bacteria Urine Automated Negative (Negative); Blood Urine 2+ (Negative); Color Urine Dark Yellow; Glucose Urine UA Negative (Negative); Ketones Urine Trace (Negative); Leukocyte Esterase Urine Trace (Negative); Nitrite Urine Negative (Negative); Protein Urine 2+ (Negative); RBC Urine Automated >30 /hpf (0-4); Specific Gravity Urine 1.022 (1.000-1.030); Urobilinogen Urine Negative (Negative); pH Urine 5.5 (4.5-7.5)
[2022-10-06 00:51] LABS: Bilirubin Urine 1+ (Negative)
[2022-10-06 01:09] LABS: Basophils # (auto) 0.02 K/uL (0-0.2); Basophils % (auto) 0.4 %; Eosinophils # (auto) 0.01 K/uL (0-0.50); Eosinophils % (auto) 0.2 %; Hematocrit (blood only) 29.3 % (40.1-51.0); Hemoglobin 9.8 g/dl (14.0-18.0); Immature Granulocytes # (auto) 0.02 K/uL (0.00-0.02); Immature Granulocytes % (auto) 0.4 %; Lymphocytes # (auto) 0.74 K/uL (1.2-3.4); Lymphocytes % (auto) 13.6 %; Mean Corpuscular Hemoglobin 29.3 pg (25.0-34.0); Mean Corpuscular Hgb Conc 33.4 g/dL (32.0-36.0); Mean Corpuscular Volume 87.7 fL (80.0-100.0); Mean Platelet Volume 9.8 fL (9.4-12.4); Monocytes % (auto) 7.3 %; Neutrophils # (auto) 4.27 K/uL (1.4-6.5); Neutrophils % (auto) 78.1 %; Platelet Count 69 K/uL (130-400); RDW Coefficient of Variation 18.4 % (11.5-14.5); Red Blood Count 3.34 M/uL (4.63-6.08); White Blood Count 5.46 K/ul (4.8-10.8)
[2022-10-06 01:32] LABS: BUN Creatinine Ratio 19.8 (10-20); Calcium 7.6 mg/dl (8.5-10.1); Creatinine Clr Calc Pharmacy 74.5 ml/min; Est GFR (African American) 83.9 ml/min; Est GFR (Non-African American) 72.4 ml/min; Magnesium 1.9 mg/dl (1.7-2.4); Potassium 3.8 mmol/L (3.5-5.1)
[2022-10-06] MEDS: SODIUM CHLORIDE 0.9% 1000ML 1,000 ML IV SCH ×3 (02:46→23:42)
[2022-10-06] MEDS ORDERED: LATANOPROST 0.005% OP SOLN 2.5 ML BTL OPB SCH (09:00)
[2022-10-06] MEDS ORDERED: diphenhydrAMINE 50 MG/ML VIAL IV STA (09:12)
--- NOTE | 2022-10-06 10:54 | XRay Report ---
ORBIT RADIOGRAPHS 3 VIEWS HISTORY: pre-MRI screening. COMPARISON: None. FINDINGS: There are no radiopaque foreign bodies identified within the orbits. IMPRESSION: No radiopaque foreign bodies identified within the orbits. ACT 112: Negative or not required by law. Electronically signed by: Len Potts M.D. 10/06/2022 10:52 AM
--- NOTE | 2022-10-06 11:20 | Hospitalist Progress Note ---
Date of Service October 06, 2022 Assessment & Plan (1) Back pain: Plan: -Has a history of metastatic prostate cancer -Patient was admitted on account of Ongoing in low back x 2 weeks, recently prescribed oxycodone by oncology yesterday, had 2 doses with minimal relief. -Found to have some urine retention and bladder distension - No red flag s/s: no radicular pain, saddle anesthesia,no lower extremity paraesthesias, but complained of weakness and difficulty ambulating - Lumbar/pelvis CT: No acute fracture, subluxation or evidence of osseous metastasis. - Some Improvement of back pain upon emptying bladder makes urinary retention most likely cause of back pain, however still have to consider what caused urinary retention in the first place. It is possible that recently starting oxycodone led to the urinary retention, as well as the fatigue, weakness, diffic ulty getting himself out of bed. -Obtain Lumbar MRI (2) Elevated troponin: Plan: - HS trop 69, with new Q waves and T wave inversions. could be due to demand ischemia - Patient without any chest pain. - Will trend troponin--> downtrending on 2 hour repeat - Update echo, last done in April 2021: normal LV size with hyperdynamic systolic function, EF > 70%, no regional wma, moderate LVH. (3) Hyponatremia: Plan: - Hypovolemic hyponatremia (4) Metastatic castration-resistant adenocarcinoma of prostate: Plan: - Primary oncologist is Dr. Salas with [facility]. - Nuclear scan 09/19: new focus of PSMA Locametz at the anterior right acetabulum and new site or moderate uptake in inferior sternum suspicioius for metastatic disease. Interval increase in size and PSMA Locametz uptake in all 3 hepatic lesions exhibiting local necrosis. - Lumbar/pelvis CT today is nto showing any new metastatic disease. - Work-up for low back pain as above. (5) Aortic aneurysm, abdominal: Plan: - s/p stenting in 2010. - CT was considered, however he is not reporting any thoracic back pain/pain between shoulder blades. And back pain resolved with relieving distended bladder, making his aneurysm etiology of his pain very unlikely. (6) Hypertension: Plan: - Continue metoprolol, no longer on lisinopril due to hypotension. (7) Hyperlipidemia: Plan: - Continue atorvastatin. (8) GERD (gastroesophageal reflux disease): Plan: - Continue pantoprazole. (9) Anxiety: Plan: - Continue lorazepam 0.5 mg BID prn. Plan - Admit to medicine w/ telemetry. - SCDs, Lovenox for VTE ppx. - Full Code. Admission and Anticipated Discharge Date Admission Date: October 05, 2022 Subjective patient seen and examined, family by bedside. complains of weakness of both legs Review of Systems Review of Systems: All systems reviewed are negative, apart from the ones contained in the history. Physical Exam Physical Exam: The patient is awake, alert and oriented 3, well developed and well nourished, normocephalic and atraumatic, lying in bed and in no acute distress. HEENT--PERRL, EOMI, mucous membranes and oropharynx mildly dry Neck--supple. No JVD. No bruits. Thyroid normal, trachea midline, no adenopathy. Heart--normal S1 and S2. No murmurs, rubs or gallops. Lungs--clear bilaterally, no respiratory distress, no accessory muscle use. Abdomen--normal bowel sounds and soft. Mild epigastric and left sided abdominal pain Extremities--no cyanosis or clubbing. No edema. Dermatologic--normal skin turgor, normal color, no abnormal lymph nodes, no rash. Neurologic--cranial nerves II through XII grossly intact. Rheumatologic--normal range of motion. Psychiatric--normal affect. Results & Data Results & [facility] ([facility]) Vital Signs (Past 12 Hours) Vital Signs Temp Pulse Pulse Resp BP Pulse Ox O2 Del Method 10/06/22 07:29 91 H 10/06/22 06:35 98.2 F 89 16 124/60 93 Room Air 10/06/22 03:55 98.8 F 90 18 120/66 92 Room Air 10/06/22 00:39 92 Room Air 10/05/22 23:18 99.5 F 96 H 16 123/64 90 Room Air PG Care Time/CCT Total # of Minutes Spent Total Time Spent with Patient: Total time spent is greater than 50% in coordination of care (as documented) at patient's floor/unit and/or counseling patient: Coding Level of Care Code 05721 SUB INP/OBS CARE 2/35MIN Diagnoses Back pain M54.9 Elevated troponin R77.8 Hyponatremia E87.1 Metastatic castration-resistant adenocarcinoma of prostate C61; Z19.2 Aortic aneurysm, abdominal I71.40 Hypertension I10 Hyperlipidemia E78.5 GERD (gastroesophageal reflux disease) K21.9 Anxiety F41.9 Time Spent (min) 35
[2022-10-06] MEDS ORDERED: GADOBUTROL 10ML VIAL IV ONE (11:48)
--- NOTE | 2022-10-06 12:14 | Magnetic Resonance Report ---
LUMBAR SPINE MRI WITH AND WITHOUT CONTRAST HISTORY: back pain, history of met. prostate cancer TECHNIQUE: Multiplanar multisequence MRI of the lumbar spine was performed both before and after the intravenous administration of contrast. COMPARISON: CT lumbar spine 10/05/2022. FINDINGS: For the purpose of the report the L5-S1 disc space will be located on axial image 27 of 30. Mild levoscoliosis is again noted. No fracture or subluxation. The visualized sacrum is intact. Mild subcutaneous edema within the lumbar region and mild presacral edema is noted. There is severe disc s pace narrowing at L2-L3, L4-5, and L5-S1. There is moderate disc space narrowing at L3-L4 and mild di sc space narrowing at L1-L2. The conus terminates at the L1-L2 disc space level. No suspicious osseou s lesions identified. Mild endplate edema and enhancement at the L1-L2 level. This is likely due to a combination of the Schmorl's node and degenerative change. Underlying infection is considered less l ikely given the lack of enhancement within the disc space. No epidural or paraspinal fluid collection s. Partially visualized left renal cyst and splenomegaly again noted. Mild edema within the bilateral psoas muscles is noted. Mild facet degenerative changes seen throughout the lumbar spine. L1-L2: There is an 8 x 5 mm left paracentral focal disc protrusion resulting in mild to moderate left -sided central canal narrowing. This appears to abut the transiting left L2 nerve roots. There is als o moderate left-sided neural foraminal narrowing due to the disc protrusion/disc bulge at this level. Enhancement adjacent to the disc protrusion is likely due to the degenerative change. L2-L3: Broad-based posterior disc bulge with ligamentum and facet hypertrophy resulting in mild centr al canal and mild bilateral neural foraminal narrowing. L3-L4: Broad-based posterior disc bulge with ligamentum and facet hypertrophy resulting in mild-to-mo derate central canal and mild to moderate right-sided neural foraminal narrowing. There is mild left- sided neural foraminal narrowing. L4-L5: Broad-based posterior disc bulge with ligamentum and facet hypertrophy resulting in mild centr al canal and moderate right neural foraminal narrowing. There is mild to moderate left-sided neural f oraminal narrowing. L5-S1: Small broad-based posterior disc bulge without significant central canal narrowing. There is m ild right and mild to moderate left-sided neural foraminal narrowing due to the disc bulge and facet hypertrophy. IMPRESSION: 1. No osseous lesions to suggest metastatic disease. 2. An 8 x 5 mm left paracentral focal disc protrusion at L1-L2 resulting in [id number] central canal narrowing. This likely abuts the transiting left L2 nerve roots. 3. Additional [id number] degenerative changes as described above. 4. Mild levoscoliosis. 5. No fracture or subluxation. ACT 112: Negative or not required by law. Electronically signed by: Len Potts M.D. 10/06/2022 12:12 PM
[2022-10-06] MEDS: SODIUM CHLORIDE 1 GM TABLET PO SCH ×2 (13:12→23:39)
[2022-10-06] MEDS: METOPROLOL SUCC 50MG EXT REL TAB PO SCH (13:12)
[2022-10-06] MEDS: DORZOLAMIDE/TIMOLOL 22.3/6.8MG/ML 10 ML BTL OPB SCH (13:13)
[2022-10-06] MEDS: oxyCODONE HCL IR 5 MG TAB (IMMEDIATE RELEASE) PO PRN (13:25)
[2022-10-06] MEDS: PANTOprazole 40 MG TAB PO SCH (14:50)
[2022-10-06] MEDS: ENOXAPARIN INJ 40 MG/0.4 ML SYR SQ SCH (17:09)
--- NOTE | 2022-10-06 19:31 | XCELERA ---
[id number]}___[id number].pdf
[2022-10-06 22:20] LABS: Basophils # (auto) 0.02 K/uL (0-0.2); Basophils % (auto) 0.3 %; Hematocrit (blood only) 30.1 % (40.1-51.0); Immature Granulocytes # (auto) 0.03 K/uL (0.00-0.02); Immature Granulocytes % (auto) 0.5 %; Lymphocytes # (auto) 0.64 K/uL (1.2-3.4); Mean Corpuscular Hemoglobin 29.2 pg (25.0-34.0); Mean Corpuscular Hgb Conc 33.2 g/dL (32.0-36.0); Mean Corpuscular Volume 87.8 fL (80.0-100.0); Mean Platelet Volume 9.7 fL (9.4-12.4); Monocytes # (auto) 0.34 K/uL (0.24-0.82); Monocytes % (auto) 5.8 %; Neutrophils # (auto) 4.79 K/uL (1.4-6.5); Neutrophils % (auto) 82.4 %; Platelet Count 69 K/uL (130-400); RDW Coefficient of Variation 18.7 % (11.5-14.5); RDW Standard Deviation 59.7 fL (36.4-46.3); Red Blood Count 3.43 M/uL (4.63-6.08); White Blood Count 5.82 K/ul (4.8-10.8)
[2022-10-06 22:30] LABS: INR 1.2 (0.9-1.1); Prothrombin Time 12.4 Seconds (9.0-12.0)
[2022-10-06 22:47] LABS: Troponin I High Sensitivity 91.4 pg/ml (0-20)
[2022-10-06] MEDS ORDERED: ASPIRIN 300 MG SUPP PR ONE (22:47)
[2022-10-06] MEDS ORDERED: THIAMINE HCL 100 MG in SYRINGE 9 ML IV ONE (23:00)
[2022-10-06 23:10] LABS: Albumin Globulin Ratio 0.7 (0.9-2); Albumin Level 2.4 gm/dl (3.4-5.0); BUN Creatinine Ratio 22.1 (10-20); Bilirubin,Total 0.9 mg/dl (0.2-1.0); Calcium 7.5 mg/dl (8.5-10.1); Creatinine Clr Calc Pharmacy 72.4 ml/min; Est GFR (Non-African American) 69.9 ml/min; Globulin 3.3 gm/dl (2.5-4.0); Potassium 4.1 mmol/L (3.5-5.1); Total Protein 5.7 gm/dl (6.0-8.3)
[2022-10-06] MEDS ORDERED: OPTIRAY 320 500ml IV ONE (23:27)
[2022-10-06] MEDS: MIRTAZAPINE TAB 15 MG TAB PO SCH (23:39)
[2022-10-06] MEDS: ATORVASTATIN 40 MG TAB PO SCH (23:39)
[2022-10-06] MEDS: LATANOPROST 0.005% OP SOLN 2.5 ML BTL OPB SCH (23:39)
--- NOTE | 2022-10-06 23:42 | Communication Note ---
Date of Service: October 06, 2022 21:36- RN notified me that patient was acting strange, not answering not talking which represented a change from about one hour prior when patient had been more interactive and presumably at baseline. A stroke alert was called at 21:40. I came to the room and noted patient laying in bed with difficulty speaking, though he was able to answer questions appropriately with a head nod or head shake. Nursing noted a possible left-sided facial droop. I ordered a CT head as well as an EKG, CBC, CMP, PT/INR, lactate, hsTroponin, and type/screen. Labs resulted without major changes - patient remained mildly anemic, platelets remained low at 69, hyponatremia persisted at 126, hsTroponin was downtrending. [facility] was contacted, and evaluated patient - see their consult note for further details. The [facility] physician's recommendations are as follows: Obtain CTA head/neck Aspirin 300mg AL now, 81mg daily going forward Administer thiamine 100mg IV and mag sulfate 2g IV now Obtain routine MRI and EEG tomorrow Resident Activity Tracking Resident Involvement: Resident Care Provided and Pesticide Control Inspector Coverage Note Care Provided: Adult Hospital Medicine
[2022-10-06] MEDS: MAGNESIUM SULFATE / D5W 1 GM/100 ML BAG IV SCH (23:47)
[2022-10-07] MEDS: MAGNESIUM SULFATE / D5W 1 GM/100 ML BAG IV SCH (02:00)
--- NOTE | 2022-10-07 05:56 | Electrocardiogram Report ---
Test Reason : Blood Pressure : / mmHG Vent. Rate : 113 BPM Atrial Rate : 113 BPM P-R Int : 182 ms QRS Dur : 082 ms QT Int : 324 ms P-R-T Axes : 044 -36 026 degrees QTc Int : 444 ms Poor data quality, interpretation may be adversely affected Sinus tachycardia with frequent Premature ventricular complexes Left axis deviation Septal infarct , age undetermined Abnormal ECG When compared with ECG of 01-DEC-2018 09:08, Premature ventricular complexes are now Present Vent. rate has increased BY 59 BPM Septal infarct is now Present Nonspecific T wave abnormality now evident in Inferior leads Confirmed by Reginaldo Martinez ([id number]) on 10/07/2022 5:56:30 AM Referred By: REFERRED SELF Confirmed By:Reginaldo Martinez
--- NOTE | 2022-10-07 07:36 | CT Scan Report ---
CT angio neck with con, CT angio head w con, CT head/brain wo con CLINICAL HISTORY: C/F CVA TECHNIQUE: Contiguous axial CT images of the head were acquired from the base of the skull to the debbie tam without intravenous contrast administration. CT angiography of the head and neck was performed f ollowing intravenous administration of iodinated contrast. Coronal and sagittal MIPS were obtained fr om the axial data set and were submitted for review. Automated dose lowering techniques and/or adjus tment according to patient size were utilized for this examination. All measurements were calculated based on NASCET criteria. CT DOSE: 606.25 mGy.cm (accession [id number]), 906.76 mGy.cm (accession [id number]) Comparison: None available at the time of this dictation. FINDINGS: CT head: Areas of decreased attenuation are present in the periventricular and subcortical white clarence er bilaterally consistent with small vessel ischemic disease. Generalized cerebral atrophy with comme nsurate enlargement of the ventricles, sulci, and cisterns is also present. There is no acute intracr anial hemorrhage or evidence of acute territorial infarction. No shift of the midline structures, mas s effect, or extra-axial abnormalities are shown. Atherosclerotic calcifications are present in the intracranial segments of the internal carotid arteries. Lungs and soft tissues are unremarkable. CTA Neck: Biapical scarring is seen. There is no significant atherosclerotic plaque in the aortic ar ch or the origins of the innominate, left common carotid, and left subclavian arteries. There is 95 % stenosis of the right proximal internal carotid artery. There is atherosclerotic calcification in t he left carotid bulb without hemodynamically significant stenosis. The vertebral arteries are codomin ant. CTA Head: The anterior and posterior cerebral circulations are patent. There is a 3 mm saccular aneu rysm of the proximal A2 segment of the right anterior cerebral artery, oriented to the left. No hemod ynamically significant stenosis or occlusion is seen. IMPRESSION: 1. No acute intracranial hemorrhage, evidence of acute territorial infarction, or other acute intrac ranial disease process. 2. 25% stenosis of the right internal carotid artery, likely chronic. 3. Tiny right IVONNE aneurysm. No hemodynamically significant stenosis or occlusion is seen. Assessment of stenosis of the internal carotid arteries is based on NASCET criteria. ACT 112: Negative or not required by law. Electronically signed by: Michael Puga M.D. 10/07/2022 7:34 AM
[2022-10-07] MEDS: SODIUM CHLORIDE 1 GM TABLET PO SCH ×3 (08:58→20:59)
[2022-10-07] MEDS: DORZOLAMIDE/TIMOLOL 22.3/6.8MG/ML 10 ML BTL OPB SCH (08:58)
[2022-10-07] MEDS: PANTOprazole 40 MG TAB PO SCH (08:58)
[2022-10-07] MEDS: METOPROLOL SUCC 50MG EXT REL TAB PO SCH (08:58)
--- NOTE | 2022-10-07 10:40 | Anesthesiology Consultation ---
Date of Service October 07, 2022 Assessment & Plan (1) Encounter for pre-operative examination: Chart Review Chart Review: Acceptable Risk for Surgery and Patient NOT seen in Pre Admission Testing Consults Requested none History Surgery Operation Date: 10/07/22 11:00 Proposed Procedures p Transesophageal Echo w/Anesthesia - Romulo Cantu MD Height/Weight Height: 5 ft 11 in Weight: 95.7 kg Allergies Allergy/AdvReac Type Severity Reaction Status Date / Time brimonidine [From Combigan] Allergy Intermediate Rash Verified 10/05/22 16:06 timolol [From Combigan] Allergy Intermediate Rash Verified 10/05/22 16:06 oregano Allergy Gastrointestinal Verified 10/05/22 16:06 Upset kareem Allergy Gastrointestinal Verified 10/05/22 16:06 Upset Medications Home Medications Medication Instructions Recorded Confirmed Last Taken atorvastatin 40 mg tablet 40 mg PO QPM 10/13/18 10/05/22 04/12/19 22:00 metoprolol succinate 50 mg 50 mg PO QAM 10/13/18 10/05/22 04/12/19 09:00 tablet,extended release 24 hr pantoprazole 40 mg tablet,delayed 40 mg PO QAM 10/13/18 10/05/22 04/12/19 release polyethylene glycol 3350 17 gram 17 g PO HS PRN Constipation 10/13/18 10/05/22 12/13/18 19:00 oral powder packet (Miralax) dorzolamide 22.3 mg-timolol 6.8 1 drp OPB DAILY 11/17/18 10/05/22 04/12/19 mg/mL eye drops (Cosopt) latanoprost 0.005 % eye drops 1 drp OPB DAILY 11/17/18 10/05/22 04/12/19 (Xalatan) lorazepam 0.5 mg tablet 0.5 mg PO BID PRN Anxiety 11/25/18 10/05/22 Unknown leuprolide acetate (6 month) 45 mg 45 mg IM UD #1 ea 04/10/21 10/05/22 05/06/22 intramuscular syringe kit (Lupron Depot) enzalutamide 40 mg tablet (Xtandi) 40 mg PO UD 10/05/22 10/05/22 Unknown mirtazapine 7.5 mg tablet 7.5 mg PO HS 10/05/22 10/05/22 Unknown ondansetron HCl 8 mg tablet 8 mg PO Q8H PRN Nausea 10/05/22 10/05/22 Unknown oxycodone 5 mg tablet 5 mg PO Q4H PRN Pain 10/05/22 10/05/22 Unknown Active Medications Generic Name Dose Route Start Last Admin Trade Name Freq PRN Reason Stop Dose Admin Atorvastatin Calcium 40 mg 10/05/22 21:00 10/06/22 23:39 Atorvastatin 40 Mg Tab PO 11/04/22 20:59 Not Given QPM BRISA Dorzolamide/Timolol 1 drops 10/06/22 09:00 10/07/22 08:58 Dorzolamide/Timolol 22.3/6.8mg/Ml 10 Ml Btl OPB 11/05/22 08:59 1 drops DAILY BRISA Administration Enoxaparin Sodium 40 mg 10/05/22 18:00 10/06/22 17:09 Enoxaparin Inj 40 Mg/0.4 Ml Syr SQ 11/04/22 17:59 40 mg Q24H BRISA Administration Sodium Chloride 1,000 mls @ 100 mls/hr 10/05/22 17:30 10/06/22 23:42 Nss 1000ml IV 11/04/22 17:29 100 mls/hr .Q10H BRISA Administration Latanoprost 1 drops 10/05/22 21:00 10/06/22 23:39 Latanoprost 0.005% Op Soln 2.5 Ml Btl OPB 11/04/22 20:59 1 drops HS BRISA Administration Metoprolol Succinate 50 mg 10/06/22 09:00 10/07/22 08:58 Metoprolol Succ 50mg Ext Rel Tab PO 11/05/22 08:59 Not Given QAM BRISA Mirtazapine 7.5 mg 10/05/22 21:00 10/06/22 23:39 Mirtazapine Tab 15 Mg Tab PO 11/04/22 20:59 Not Given HS BRISA Miscellaneous 1 each 10/06/22 00:00 10/07/22 08:58 Enzalutamide [Xtandi] 40 Mg Tablet ~ Order Awaiting Action N/A 11/05/22 00:00 Not Given QS BRISA Oxycodone HCl 5 mg 10/05/22 18:37 10/06/22 13:25 Oxycodone Hcl Ir 5 Mg Tab (Immediate Release) PO 10/19/22 18:36 5 mg Q4H PRN Administration MODERATE Pain (4,5,6) & Pre PT Pantoprazole Sodium 40 mg 10/06/22 09:00 10/07/22 08:58 Pantoprazole 40 Mg Tab PO 11/05/22 08:59 Not Given QAM BRISA Sodium Chloride 1 gm 10/06/22 14:00 10/07/22 08:58 Sodium Chloride 1 Gm Tablet PO 11/05/22 13:59 Not Given TID BRISA Past Medical History Medical History Anxiety Aortic aneurysm, abdominal s/p stent graft repair 2010 Bradycardia ASYMPTOMATIC ON BETA JENNIFER GERD (gastroesophageal reflux disease) CONTROLLED Glaucoma Hyperlipidemia Hypertension Male stress incontinence Metastatic castration-resistant adenocarcinoma of prostate Obesity Domingo Longo is a 77-year-old male with a past medical history significant for metastatic prostate cancer, chemotherapy induced pancytopenia, hyponatremia, hypertension, hyperlipidemia, GERD, prediabetes, AAA s/p stenting in 2010, and anxiety who is presenting today with back pain. He has had worsening back pain for the past week and was prescribed oxycodone recently by his oncologist. Since taking it, he has become very weak and unable to get himself out of bed and perform activities at home. Also noted to be confused and lethargic by his as she is not as responsive as he typically is. Past Family History Family History Mother , Passed age 78 of Breast Cancer No problems noted. Father , Passed age 78 of Heart Disease No problems noted. Sister , Passed age 76 of Breast Cancer No problems noted. Sister No problems noted. Sister No problems noted. Sister No problems noted. Brother Myocardial infarction Aunt , Fraternal - Passed in 60's/70's of Breast CA No problems noted. Grandmother (Maternal) , Passed in 70's of Breast CA No problems noted. Son No problems noted. Son No problems noted. Son No problems noted. Daughter No problems noted. Past Surgical History Surgical History History of abdominal aortic aneurysm repair 2010 History of cataract extraction with lens replacement History of liver biopsy History of prostate biopsy 11/09/18 History of prostatectomy W/ BL PELVIC LYMPH NODE DISSECTION AND BLADDER NECK RECONSTRUCTION 12/15/2018 [facility] - MAC #4, ETT #8, HiLo Oral, Grade 1 View History of umbilical hernia repair S/P excision of lipoma FOREHEAD Social History Smoking Status: Former smoker tobacco type: cigarettes Smoking cigarettes per day: QUIT 10 YEARS AGO; 1 PPD X 45 YEARS Hx Alcohol Use: No Alcohol type: other alcohol intake frequency: a few times a month Hx Substance Use: No substance use type: does not use Physical Exam Vital Signs Last Vital Signs Temp 36.5 C 10/07/22 07:42 Pulse 76 10/07/22 08:44 Resp 18 10/07/22 07:42 BP 122/63 10/07/22 07:42 Pulse Ox 94 10/07/22 07:42 O2 Del Method 10/07/22 07:42 O2 Flow Rate 2 10/07/22 02:35 Testing Laboratory Results 10/06/22 22:05 10/06/22 22:05 PT 12.4 Seconds (9.0-12.0) H 10/06/22 22:05 INR 1.2 (0.9-1.1) H 10/06/22 22:05 APTT 35.3 Seconds (21.0-31.0) H 10/05/22 11:35 Urine Color Dark Yellow 10/06/22 00:13 Urine Appearance Clear (Clear) 10/06/22 00:13 Urine pH 5.5 (4.5-7.5) 10/06/22 00:13 Ur Specific [place] 1.022 (1.000-1.030) 10/06/22 00:13 Urine Protein 2+ (Negative) H 10/06/22 00:13 Urine Glucose (UA) Negative (Negative) 10/06/22 00:13 Urine Ketones Trace (Negative) H 10/06/22 00:13 Urine Nitrite Negative (Negative) 10/06/22 00:13 Ur Leukocyte Esterase Trace (Negative) H 10/06/22 00:13 Urine WBC (Auto) 1-5 /hpf (0-5) 10/06/22 00:13 Urine RBC (Auto) >30 /hpf (0-4) H 10/06/22 00:13 U Hyaline Cast (Auto) 5-10 /lpf (0-5) H 10/06/22 00:13 U Epithel Cells (Auto) 10-20 /lpf (0-5) H 10/06/22 00:13 Urine Bacteria (Auto) Negative (Negative) 10/06/22 00:13 Electrocardiogram Date: 10/06/22 Sinus rhythm with frequent PVC's Rightward axis Borderline ECG HR 95 Chest X-Ray Date: 10/05/22 XR chest 1V portable HISTORY: 77 years-old Male Chest pain, nonspecific acute chest pain COMPARISON: Chest CT 08/09/2022 TECHNIQUE: AP view of the chest FINDINGS: Cardiac silhouette is enlarged. Left subclavian Povwkz-i-Pgcv catheter is unchanged. No pneumothorax, pleural effusion or airspace consolidation. Emphysema. Mild chronic interstitial coarsening of the lung bases. Bones appear grossly intact. IMPRESSION: 1. Cardiomegaly without acute process. 2. Pulmonary emphysema. Echocardiogram Date: 10/06/22 Normal LV size and systolic function. EF 65-70%. No RWMA. Moderate LVH Aortic valve appears thickened/sclerotic, with possible mass/vegetation. Aortic regurg is present Mild MR Other Testing Neck CT 10/07/22: IMPRESSION: 1. No acute intracranial hemorrhage, evidence of acute territorial infarction, or other acute intracranial disease process. 2. 25% stenosis of the right internal carotid artery, likely chronic. 3. Tiny right IVONNE aneurysm. No hemodynamically significant stenosis or occlusion is seen.
[2022-10-07] MEDS: oxyCODONE HCL IR 5 MG TAB (IMMEDIATE RELEASE) PO PRN (12:31)
--- NOTE | 2022-10-07 12:34 | Electroencephalogram ---
EEG Procedure Note Date of Service October 07, 2022 Start / End Times Start Time: 11:43 AM End Time: 12:03 PM Referring Physician Gabe Martinez History Speech arrest, concern for stroke versus seizure Home Medication List Medication Instructions Recorded Confirmed Type atorvastatin 40 mg tablet 40 mg PO QPM 10/13/18 10/05/22 History metoprolol succinate 50 mg 50 mg PO QAM 10/13/18 10/05/22 History tablet,extended release 24 hr pantoprazole 40 mg tablet,delayed 40 mg PO QAM 10/13/18 10/05/22 History release polyethylene glycol 3350 17 gram 17 g PO HS PRN Constipation 10/13/18 10/05/22 History oral powder packet (Miralax) dorzolamide 22.3 mg-timolol 6.8 1 drp OPB DAILY 11/17/18 10/05/22 History mg/mL eye drops (Cosopt) latanoprost 0.005 % eye drops 1 drp OPB DAILY 11/17/18 10/05/22 History (Xalatan) lorazepam 0.5 mg tablet 0.5 mg PO BID PRN Anxiety 11/25/18 10/05/22 History leuprolide acetate (6 month) 45 mg 45 mg IM UD #1 ea 04/10/21 10/05/22 Rx intramuscular syringe kit (Lupron Depot) enzalutamide 40 mg tablet (Xtandi) 40 mg PO UD 10/05/22 10/05/22 History mirtazapine 7.5 mg tablet 7.5 mg PO HS 10/05/22 10/05/22 History ondansetron HCl 8 mg tablet 8 mg PO Q8H PRN Nausea 10/05/22 10/05/22 History oxycodone 5 mg tablet 5 mg PO Q4H PRN Pain 10/05/22 10/05/22 History Inpatient Medication List Atorvastatin Calcium (Atorvastatin 40 Mg Tab) 40 mg PO QPM BRISA Stop: 11/04/22 20:59 Last Admin: 10/06/22 23:39 Dose: Not Given Documented By: Admin: 10/05/22 20:14 Dose: 40 mg Documented By: LOREN Dorzolamide/Timolol (Dorzolamide/Timolol 22.3/6.8mg/Ml 10 Ml Btl) 1 drops OPB DAILY BRISA Stop: 11/05/22 08:59 Last Admin: 10/07/22 08:58 Dose: 1 drops Documented By: Admin: 10/06/22 13:13 Dose: 1 drops Documented By: ALICE Enoxaparin Sodium (Enoxaparin Inj 40 Mg/0.4 Ml Syr) 40 mg SQ Q24H BRISA Stop: 11/04/22 17:59 Last Admin: 10/06/22 17:09 Dose: 40 mg Documented By: Admin: 10/05/22 18:29 Dose: 40 mg Documented By: JAMIE Sodium Chloride (Nss 1000ml) 1,000 mls @ 100 mls/hr IV .Q10H BRISA Stop: 11/04/22 17:29 Last Admin: 10/06/22 23:42 Dose: 100 mls/hr Documented By: Infusion: 10/06/22 23:41 Dose: 0 mls/hr Documented By: Infusion: 10/06/22 23:41 Dose: 100 mls/hr Documented By: Admin: 10/06/22 16:14 Dose: 100 mls/hr Documented By: Infusion: 10/06/22 16:12 Dose: 0 mls/hr Documented By: Admin: 10/06/22 02:46 Dose: 100 mls/hr Documented By: Infusion: 10/06/22 02:45 Dose: 0 mls/hr Documented By: Admin: 10/05/22 17:59 Dose: 100 mls/hr Documented By: JAMIE Latanoprost (Latanoprost 0.005% Op Soln 2.5 Ml Btl) 1 drops OPB HS BRISA Stop: 11/04/22 20:59 Last Admin: 10/06/22 23:39 Dose: 1 drops Documented By: Admin: 10/05/22 20:12 Dose: 1 drops Documented By: LOREN Metoprolol Succinate (Metoprolol Succ 50mg Ext Rel Tab) 50 mg PO QAM BRISA Stop: 11/05/22 08:59 Last Admin: 10/07/22 08:58 Dose: Not Given Documented By: Admin: 10/06/22 13:12 Dose: 50 mg Documented By: ALICE Mirtazapine (Mirtazapine Tab 15 Mg Tab) 7.5 mg PO HS BRISA Stop: 11/04/22 20:59 Last Admin: 10/06/22 23:39 Dose: Not Given Documented By: Admin: 10/05/22 20:12 Dose: 7.5 mg Documented By: LOREN Miscellaneous (Enzalutamide [Xtandi] 40 Mg Tablet ~ Order Awaiting Action) 1 each N/A QS [facility] Stop: 11/05/22 00:00 Last Admin: 10/07/22 08:58 Dose: Not Given Documented By: Admin: 10/07/22 00:41 Dose: Not Given Documented By: Admin: 10/06/22 14:53 Dose: Not Given Documented By: Admin: 10/06/22 10:17 Dose: Not Given Documented By: Admin: 10/06/22 00:27 Dose: Not Given Documented By: LOREN Pantoprazole Sodium (Pantoprazole 40 Mg Tab) 40 mg PO QAM [facility] Stop: 11/05/22 08:59 Last Admin: 10/07/22 08:58 Dose: Not Given Documented By: Admin: 10/06/22 14:50 Dose: 40 mg Documented By: ALICE Sodium Chloride (Sodium Chloride 1 Gm Tablet) 1 gm PO TID [facility] Stop: 11/05/22 13:59 Last Admin: 10/07/22 08:58 Dose: Not Given Documented By: Admin: 10/06/22 23:39 Dose: Not Given Documented By: Admin: 10/06/22 13:12 Dose: 1 gm Documented By: ALICE Discontinued Medications Aspirin (Aspirin 300 Mg Supp) 300 mg IN ONE ONE Stop: 10/06/22 22:48 Last Admin: 10/06/22 23:40 Dose: 300 mg Documented By: LOREN Diphenhydramine HCl (Diphenhydramine 50 Mg/Ml Vial) 25 mg IV NOW STA Stop: 10/06/22 09:13 Last Admin: 10/06/22 10:19 Dose: 25 mg Documented By: ALICE Gadobutrol (Gadobutrol 10ml Vial) 9.5 ml IV ONCE ONE Stop: 10/06/22 11:49 Last Admin: 10/06/22 11:49 Dose: 9.5 ml Documented By: AURELIA Sodium Chloride (Nss 1000ml) 1,000 mls @ 999 mls/hr IV .Q1H1M STA Stop: 10/05/22 12:48 Last Infusion: 10/05/22 13:14 Dose: 0 mls/hr Documented By: Admin: 10/05/22 11:56 Dose: 999 mls/hr Documented By: ROCÍO Thiamine HCl 100 mg/ Syringe 10 mls @ 2 mls/min IV 2300 ONE Stop: 10/06/22 23:04 Last Admin: 10/06/22 23:39 Dose: 2 mls/min Documented By: LOREN Magnesium Sulfate/Dextrose (Magnesium Sulfate / D5w) 1 gm in 100 mls @ 50 mls/hr IV Q2H BRISA Stop: 10/07/22 02:59 Last Infusion: 10/07/22 04:01 Dose: 0 mls/hr Documented By: Admin: 10/07/22 02:00 Dose: 50 mls/hr Documented By: Infusion: 10/07/22 01:59 Dose: 0 mls/hr Documented By: Admin: 10/06/22 23:47 Dose: 50 mls/hr Documented By: LOREN Ioversol (Optiray 320 500ml) 111 ml IV ONCE ONE Stop: 10/06/22 23:28 Last Admin: 10/06/22 23:27 Dose: 111 ml Documented By: MINESH Morphine Sulfate (Morphine Sulfate 4 Mg/Ml 1 Ml Carp\Vial) 4 mg IV NOW STA Stop: 10/05/22 11:49 Last Admin: 10/05/22 11:56 Dose: 4 mg Documented By: ROCÍO Ondansetron HCl (Ondansetron Inj 2 Mg/Ml 2 Ml Vial) 4 mg IV NOW STA Stop: 10/05/22 11:49 Last Admin: 10/05/22 11:56 Dose: 4 mg Documented By: ROCÍO Oxycodone HCl (Oxycodone Hcl Ir 5 Mg Tab (Immediate Release)) 5 mg PO Q4H PRN PRN Reason: MODERATE Pain (4,5,6) & Pre PT Stop: 10/19/22 18:36 Last Admin: 10/06/22 13:25 Dose: 5 mg Documented By: Admin: 10/05/22 19:37 Dose: 5 mg Documented By: LOREN Description This is a 21 electrode EEG with a single channel dedicated to limited EKG. The electrodes were placed in accordance with the International 10-20 system. There is a posterior dominant rhythm of 10 Hz which is symmetrically distributed and attenuates with eye opening. There is a normal anterior to posterior organization. Photic stimulation is unremarkable. Hyperventilation is not performed. There is a symmetric frontal beta rhythm. In the latter part of the study there is attenuation of the posterior dominant rhythm in the emergence of generalized polymorphic theta activity. There are a few vertex waves. There are no epileptiform abnormalities. Interpretation Normal-appearing awake/sleepy EEG. A normal EEG does not completely exclude a diagnosis of epilepsy. Further clinical correlation may be needed. [facility] EEG Procedure Codes Indication for Procedure (1) Seizure-like activity: Neurology Neurology: 60309 EEG include record awake & sleepy
[2022-10-07] MEDS: SODIUM CHLORIDE 0.9% 1000ML 1,000 ML IV SCH ×2 (13:53→20:56)
--- NOTE | 2022-10-07 14:05 | Electrocardiogram Report ---
Test Reason : Blood Pressure : / mmHG Vent. Rate : 095 BPM Atrial Rate : 095 BPM P-R Int : 192 ms QRS Dur : 092 ms QT Int : 352 ms P-R-T Axes : 000 116 180 degrees QTc Int : 442 ms Possible limb lead reversal Sinus rhythm with occasional Premature ventricular complexes Lateral infarct , age undetermined Abnormal ECG When compared with ECG of 05-OCT-2022 11:41, QRS axis Shifted right Criteria for Lateral infarct is now Present Confirmed by Romulo Cantu ([id number]) on 10/07/2022 2:05:17 PM Referred By: REFERRED SELF Confirmed By:Romulo Cantu
--- NOTE | 2022-10-07 14:06 | Electrocardiogram Report ---
Test Reason : Blood Pressure : / mmHG Vent. Rate : 095 BPM Atrial Rate : 095 BPM P-R Int : 194 ms QRS Dur : 094 ms QT Int : 356 ms P-R-T Axes : 035 092 004 degrees QTc Int : 447 ms Sinus rhythm with frequent Premature ventricular complexes Rightward axis Borderline ECG When compared with ECG of 07-OCT-2022 00:16, Criteria for Lateral infarct no longer present (may have been lead placement error) Confirmed by Romulo Cantu ([id number]) on 10/07/2022 2:06:14 PM Referred By: REFERRED SELF Confirmed By:Romulo Cantu
--- NOTE | 2022-10-07 14:29 | Hospitalist Progress Note ---
Date of Service October 07, 2022 Assessment & Plan (1) Back pain: Plan: -Has a history of metastatic prostate cancer -Patient was admitted on account of Ongoing in low back x 2 weeks despite increasing doses of oxycodone -Found to have some urine retention and bladder distension, now resolved following pelaez - No red flag s/s: no radicular pain, saddle anesthesia,no lower extremity paraesthesias, but complained of weakness and difficulty ambulating - Lumbar/pelvis CT: No acute fracture, subluxation or evidence of osseous metastasis. - Lumbar MRI shows L1-L2 disc bulge. No evidence of spinal mets from cancer -Spine surgery on consult (2) Elevated troponin: Plan: - could be due to demand ischemia - Patient without any chest pain. - Will trend troponin--> downtrending on 2 hour repeat - Update echo, last done in April 2021: normal LV size with hyperdynamic systolic function, EF > 70%, no regional wma, moderate LVH. 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 Salas with [facility]. - Nuclear scan 09/19: new focus of PSMA Locametz at the anterior right acetabulum and new site or moderate uptake in inferior sternum suspicioius for metastatic disease. Interval increase in size and PSMA Locametz uptake in all 3 hepatic lesions exhibiting local necrosis. - Lumbar/pelvis CT today is nto showing any new metastatic disease. - Work-up for low back pain as above. (6) Aortic aneurysm, abdominal: Plan: - s/p stenting in 2010. - CT was considered, however he is not reporting any thoracic back pain/pain between shoulder blades. And back pain resolved with relieving distended bladder, making his aneurysm etiology of his pain very unlikely. (7) Hypertension: Plan: - Continue metoprolol, no longer on lisinopril due to hypotension. (8) Hyperlipidemia: Plan: - Continue atorvastatin. (9) GERD (gastroesophageal reflux disease): Plan: - Continue pantoprazole. (10) Anxiety: Plan: - Continue lorazepam 0.5 mg BID prn. Plan - Admit to medicine w/ telemetry. - SCDs, Lovenox for VTE ppx. - Full Code. Admission and Anticipated Discharge Date Admission Date: October 05, 2022 Subjective patient seen and examined, family by bedside. appears somewhat confused, intermittently Review of Systems Review of Systems: All systems reviewed are negative, apart from the ones contained in the history. Physical Exam Physical Exam: The patient is awake, alert and oriented 3, well developed and well nourished, normocephalic and atraumatic, lying in bed and in no acute distress. HEENT--PERRL, EOMI, mucous membranes and oropharynx mildly dry Neck--supple. No JVD. No bruits. Thyroid normal, trachea midline, no adenopathy. Heart--normal S1 and S2. No murmurs, rubs or gallops. Lungs--clear bilaterally, no respiratory distress, no accessory muscle use. Abdomen--normal bowel sounds and soft. Mild epigastric and left sided abdominal pain Extremities--no cyanosis or clubbing. No edema. Dermatologic--normal skin turgor, normal color, no abnormal lymph nodes, no rash. Neurologic--cranial nerves II through XII grossly intact. Rheumatologic--normal range of motion. Psychiatric--normal affect. Results & Data Results & Data ([facility]) Vital Signs (Past 12 Hours) Vital Signs Temp Pulse Pulse Pulse Resp BP BP 10/07/22 11:42 97.7 F 84 18 102/53 L 10/07/22 08:44 76 10/07/22 07:42 97.7 F 79 18 122/63 10/07/22 04:57 10/07/22 02:35 99.0 F 87 18 143/56 H Pulse Ox O2 Del Method O2 Flow Rate 10/07/22 11:42 95 Room Air 10/07/22 08:44 10/07/22 07:42 94 Room Air 10/07/22 04:57 94 Room Air 10/07/22 02:35 93 Nasal Cannula 2 PG Care Time/CCT Total # of Minutes Spent Total Time Spent with Patient: Total time spent is greater than 50% in coordination of care (as documented) at patient's floor/unit and/or counseling patient: Coding Level of Care Code 99361 SUB INP/OBS CARE 2/35MIN Diagnoses Back pain M54.9 Elevated troponin R77.8 Aortic valve vegetation I33.0 Hyponatremia E87.1 Metastatic castration-resistant adenocarcinoma of prostate C61; Z19.2 Aortic aneurysm, abdominal I71.40 Hypertension I10 Hyperlipidemia E78.5 GERD (gastroesophageal reflux disease) K21.9 Anxiety F41.9 Time Spent (min) 35
[2022-10-07] MEDS: ENOXAPARIN INJ 40 MG/0.4 ML SYR SQ SCH (18:01)
[2022-10-07] MEDS: LATANOPROST 0.005% OP SOLN 2.5 ML BTL OPB SCH (20:58)
[2022-10-07] MEDS: ATORVASTATIN 40 MG TAB PO SCH (21:00)
[2022-10-07] MEDS: MIRTAZAPINE TAB 15 MG TAB PO SCH (21:01)
[2022-10-08] MEDS: SODIUM CHLORIDE 0.9% 1000ML 1,000 ML IV SCH ×2 (05:22→15:53)
[2022-10-08 06:55] LABS: Hematocrit (blood only) 25.8 % (40.1-51.0); Hemoglobin 8.7 g/dl (14.0-18.0); Mean Corpuscular Hgb Conc 33.7 g/dL (32.0-36.0); Mean Platelet Volume 9.6 fL (9.4-12.4); Platelet Count 56 K/uL (130-400); RDW Coefficient of Variation 18.5 % (11.5-14.5); RDW Standard Deviation 58.7 fL (36.4-46.3)
[2022-10-08] MEDS ORDERED: KETAMINE 50 MG/5 ML SYRINGE ONE (06:58)
[2022-10-08] MEDS ORDERED: PROPOFOL IV EMULSION 10 MG/ML 20 ML VIAL IV ONE (07:04)
[2022-10-08] MEDS ORDERED: LIDOCAINE 2% MPF LOCAL 5 ML VIAL INFIL ONE (07:04)
[2022-10-08] MEDS ORDERED: BENZOCAINE/TETRACAIN/BUTAM 50 APPLN/5 GM CAN EXT ONE (07:12)
[2022-10-08 07:40] LABS: BUN Creatinine Ratio 22.7 (10-20); Calcium 7.2 mg/dl (8.5-10.1); Creatinine Clr Calc Pharmacy 101.8 ml/min; Est GFR (Non-African American) 89.7 ml/min; Potassium 3.6 mmol/L (3.5-5.1)
--- NOTE | 2022-10-08 08:33 | Consultation ---
Date of Consultation October 08, 2022 Assessment & Plan (1) Back pain: Patient's pain seems to be related to SI joint dysfunction bilaterally. Dr. Cole has reviewed imaging. There are no acute surgical indications. His urinary retention does not seem to be related to any type of lumbar pathology. There is no evidence of metastatic disease in the lumbar spine. Treatment for SI dysfunction is conservative. This includes physical therapy, massage therapy, lidocaine patches to affected area, chiropractic treatment upon discharge versus ultimate pain management/SI joint injection. We will sign off. Please not hesitate to contact us if you have any further questions. History of Present Illness Reason for Consultation: Back pain Attending Physician: Neetu Pearson MD History of Present Illness Is a 77-year-old gentleman we are seeing consultation regarding back pain. He has known prostate cancer. He had acute onset of back pain starting 6 weeks ago without precipitating accident, trauma, fall. He has no radicular pain. He has not been eating over the past several weeks therefore his generally weak. He lives with his . His reports he was taking ibuprofen and Tylenol at home. His oncologist gave him oxycodone prior to this admission. Allergies Allergy/AdvReac Type Severity Reaction Status Date / Time brimonidine [From Combigan] Allergy Intermediate Rash Verified 10/05/22 16:06 timolol [From Combigan] Allergy Intermediate Rash Verified 10/05/22 16:06 oregano Allergy Gastrointestinal Verified 10/05/22 16:06 Upset kareem Allergy Gastrointestinal Verified 10/05/22 16:06 Upset Home Medications Medication Instructions Recorded Confirmed Type atorvastatin 40 mg tablet 40 mg PO QPM 10/13/18 10/05/22 History metoprolol succinate 50 mg 50 mg PO QAM 10/13/18 10/05/22 History tablet,extended release 24 hr pantoprazole 40 mg tablet,delayed 40 mg PO QAM 10/13/18 10/05/22 History release polyethylene glycol 3350 17 gram 17 g PO HS PRN Constipation 10/13/18 10/05/22 History oral powder packet (Miralax) dorzolamide 22.3 mg-timolol 6.8 1 drp OPB DAILY 11/17/18 10/05/22 History mg/mL eye drops (Cosopt) latanoprost 0.005 % eye drops 1 drp OPB DAILY 11/17/18 10/05/22 History (Xalatan) lorazepam 0.5 mg tablet 0.5 mg PO BID PRN Anxiety 11/25/18 10/05/22 History leuprolide acetate (6 month) 45 mg 45 mg IM UD #1 ea 04/10/21 10/05/22 Rx intramuscular syringe kit (Lupron Depot) enzalutamide 40 mg tablet (Xtandi) 40 mg PO UD 10/05/22 10/05/22 History mirtazapine 7.5 mg tablet 7.5 mg PO HS 10/05/22 10/05/22 History ondansetron HCl 8 mg tablet 8 mg PO Q8H PRN Nausea 10/05/22 10/05/22 History oxycodone 5 mg tablet 5 mg PO Q4H PRN Pain 10/05/22 10/05/22 History Patient History Medical History Anxiety Aortic aneurysm, abdominal s/p stent graft repair 2010 Bradycardia ASYMPTOMATIC ON BETA JENNIFER GERD (gastroesophageal reflux disease) CONTROLLED Glaucoma Hyperlipidemia Hypertension Male stress incontinence Metastatic castration-resistant adenocarcinoma of prostate Obesity Surgical History History of abdominal aortic aneurysm repair 2010 History of cataract extraction with lens replacement History of liver biopsy History of prostate biopsy 11/09/18 History of prostatectomy W/ BL PELVIC LYMPH NODE DISSECTION AND BLADDER NECK RECONSTRUCTION 12/15/2018 [facility] - MAC #4, ETT #8, HiLo Oral, Grade 1 View History of umbilical hernia repair S/P excision of lipoma FOREHEAD Family History Mother , Passed age 78 of Breast Cancer No problems noted. Father , Passed age 78 of Heart Disease No problems noted. Sister , Passed age 76 of Breast Cancer No problems noted. Sister No problems noted. Sister No problems noted. Sister No problems noted. Brother Myocardial infarction Aunt , Fraternal - Passed in 60's/70's of Breast CA No problems noted. Grandmother (Maternal) , Passed in 70's of Breast CA No problems noted. Son No problems noted. Son No problems noted. Son No problems noted. Daughter No problems noted. 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 He is nontender to patient over the lumbar spine He is exquisitely tender to palpation of the bilateral sciatic notch regions bilaterally. Constitutional: average body habitus Eyes: normal visual roe by confrontation ENMT: external ear and nose normal, oropharynx normal Neck: normal visual inspection Respiratory: normal respiratory effort Cardiovascular: Extremities: normal capillary refill Gastrointestinal (Abdomen): Inspection/Auscultation: abdomen normal to inspection Musculoskeletal: Spine: + sciatic notch tenderness Extremities: extremities normal to inspection and strength 5/5 throughout Skin: no rashes, warm and dry Neurologic: normal touch/pain/proprioception and moves all extremities Psychiatric: A+Ox3, euthymic affect Eye Contact: good eye contact Speech: normal rate/rhythm/volume of speech Results & Data ([facility]) Vital Signs (Past 12 Hours) Vital Signs Temp Pulse Pulse Resp BP Pulse Ox O2 Del Method 10/08/22 07:55 83 16 99/55 L 94 Room Air 10/08/22 07:35 96 H 16 103/46 L 94 Room Air 10/08/22 07:37 99 H 10/08/22 07:09 102 H 16 119/51 L 94 Room Air 10/08/22 03:49 36.8 C 104 H 20 127/64 92 Room Air 10/07/22 22:46 37.2 C 87 20 139/51 L 91 Room Air 10/07/22 22:00 96 H 10/07/22 22:08 Room Air Diagnostic Findings [place], [place] [phone] Magnetic Resonance Report Patient:ANN MARIE SANTORO Admit Date:10/05/22 MR#:[id number] Address1:[address] [facility] Acct ID:[id number] Address2: Date:1945 [facility] Zip:[place] [address] Age:77 Location: Sex:M Room/Bed:N2[facility] Att Phy:Neetu Pearson MD Diagnosis:BACK PAIN/WEAKNESS WITH ELEVATED TROP Josey Phy:Maggy Mcneal MD Service Date:10/06/22 Fam Phy: Interpreting Phy:Len Potts MDAdmit Phy:Sebastian Garcia MD Ordering Phy:Rachael Robertson PA-C cc: ~ LUMBAR SPINE MRI WITH AND WITHOUT CONTRAST HISTORY: back pain, history of met. prostate cancer TECHNIQUE: Multiplanar multisequence MRI of the lumbar spine was performed both before and after the intravenous administration of contrast. COMPARISON: CT lumbar spine 10/05/2022. FINDINGS: For the purpose of the report the L5-S1 disc space will be located on axial image 27 of 30. Mild levoscoliosis is again noted. No fracture or subluxation. The visualized sacrum is intact. Mild subcutaneous edema within the lumbar region and mild presacral edema is noted. There is severe disc space narrowing at L2-L3, L4-5, and L5-S1. There is moderate disc space narrowing at L3-L4 and mild disc space narrowing at L1-L2. The conus terminates at the L1-L2 disc space level. No ramesh spicious osseous lesions identified. Mild endplate edema and enhancement at the L1-L2 level. This is likely due to a combination of the Schmorl's node and degenerative change. Underlying infection is considered less likely given the lack of enhancement within the disc space. No epidural or paraspinal fluid collections. Partially visualized left renal cyst and splenomegaly again noted. Mild edema within the bilateral psoas muscles is noted. Mild facet degenerative changes seen throughout the lumbar spine. L1-L2: There is an 8 x 5 mm left paracentral focal disc protrusion resulting in mild to moderate left-sided central canal narrowing. This appears to abut the transiting left L2 nerve roots. There is also moderate left-sided neural foraminal narrowing due to the disc protrusion/disc bulge at this level. Enhancement adjacent to the disc protrusion is likely due to the degenerative change. L2-L3: Broad-based posterior disc bulge with ligamentum and facet hypertrophy resulting in mild central canal and mild bilateral neural foraminal narrowing. L3-L4: Broad-based posterior disc bulge with ligamentum and facet hypertrophy resulting in [id number] central canal and mild to moderate right-sided neural foraminal narrowing. There is mild left-sided neural foraminal narrowing. L4-L5: Broad-based posterior disc bulge with ligamentum and facet hypertrophy resulting in mild central canal and moderate right neural foraminal narrowing. There is mild to moderate left-sided neural foraminal narrowing. L5-S1: Small broad-based posterior disc bulge without significant central canal narrowing. There is mild right and mild to moderate left-sided neural foraminal narrowing due to the disc bulge and facet hypertrophy. IMPRESSION: 1. No osseous lesions to suggest metastatic disease. 2. An 8 x 5 mm left paracentral focal disc protrusion at L1-L2 resulting in [id number]-[id number] central canal narrowing. This likely abuts the transiting left L2 nerve roots. 3. Additional [id number]-kg-[id number] degenerative changes as described above. 4. Mild levoscoliosis. 5. No fracture or subluxation. ACT 112: Negative or not required by law. Electronically signed by: Len Potts M.D. 10/06/2022 12:12 PM Dictated:10/06/22 1201 Transcribed: 10/06/22 1201
--- NOTE | 2022-10-08 08:45 | XCELERA ---
[id number]
[2022-10-08] MEDS: PANTOprazole 40 MG TAB PO SCH (08:53)
[2022-10-08] MEDS: METOPROLOL SUCC 50MG EXT REL TAB PO SCH ×2 (08:53→08:56)
[2022-10-08] MEDS: SODIUM CHLORIDE 1 GM TABLET PO SCH ×3 (08:53→20:41)
[2022-10-08] MEDS: DORZOLAMIDE/TIMOLOL 22.3/6.8MG/ML 10 ML BTL OPB SCH (08:54)
--- NOTE | 2022-10-08 10:04 | Anesthesiology Progress Note ---
Date of Service October 08, 2022 Anesthesia Post Procedure Vital Signs Vital Signs: Temp Pulse Pulse Resp BP Pulse Ox O2 Del Method 10/08/22 07:55 83 16 99/55 L 94 Room Air 10/08/22 07:35 96 H 16 103/46 L 94 Room Air 10/08/22 07:37 99 H 10/08/22 07:09 102 H 16 119/51 L 94 Room Air 10/08/22 03:49 36.8 C 104 H 20 127/64 92 Room Air 10/07/22 22:46 37.2 C 87 20 139/51 L 91 Room Air 10/07/22 22:00 96 H 10/07/22 22:08 Room Air 10/07/22 20:08 36.5 C 90 14 133/62 94 Room Air 10/07/22 15:43 37.1 C 85 18 127/63 94 Room Air 10/07/22 11:42 36.5 C 84 18 102/53 L 95 Room Air Pain Intensity Back: Pain Intensity: 4 Lower Back: Pain Intensity: 6 Transfer of Care Handoff Completed per policy Notes Mental Status: alert / awake / arousable and participated in evaluation Patient Amnestic to Procedure: Yes Nausea / Vomiting: adequately controlled Pain: adequately controlled Airway Patency, RR, SpO2: stable & adequate BP & HR: stable & adequate Hydration State: stable & adequate Anesthetic Complications: no major complications apparent and Pt Satisfied with anesthetic care
[2022-10-08] MEDS: oxyCODONE HCL IR 5 MG TAB (IMMEDIATE RELEASE) PO PRN ×2 (11:55→15:52)
--- NOTE | 2022-10-08 11:59 | Hospitalist Progress Note ---
Date of Service October 08, 2022 Assessment & Plan (1) Back pain: Plan: -Patient Has a history of metastatic prostate cancer -Was admitted on account of Ongoing in low back x 2 weeks despite increasing doses of oxycodone -Found to have some urine retention and bladder distension, now resolved following pelaez - No red flag s/s: no radicular pain, saddle anesthesia,no lower extremity paraesthesias, but complained of weakness and difficulty ambulating - Lumbar/pelvis CT: No acute fracture, subluxation or evidence of osseous metastasis. - Lumbar MRI shows L1-L2 disc bulge. No evidence of spinal mets from cancer -Spine surgery on consult, they recommend PT for suspected SI joint dysfunction (2) Elevated troponin: Plan: - could be due to demand ischemia - Patient without any chest pain. - Will trend troponin--> downtrending on 2 hour repeat - Update echo, last done in April 2021: normal LV size with hyperdynamic systolic function, EF > 70%, no regional wma, moderate LVH. (3) Aortic valve vegetation: Plan: vegetation or mass noted on the aortic valve on 2 d ECHO -Clinical significance is uncertain -No evidence of endocarditis, no fevers or chills, no need for blood cultures -DAWN was done which showed possibly thrombosed fibrosis, but no significantly hemodynamic aortic stenosis -Consult cardiology (4) Hyponatremia: Plan: - Hypovolemic hyponatremia -slight improvement -Encourage fluids intake -salt tablets (5) Metastatic castration-resistant adenocarcinoma of prostate: Plan: - Primary oncologist is Dr. Salas with [facility] [place]. - Nuclear scan 09/19: new focus of PSMA Locametz at the anterior right acetabulum and new site or moderate uptake in inferior sternum suspicioius for metastatic disease. Interval increase in size and PSMA Locametz uptake in all 3 hepatic lesions exhibiting local necrosis. - Lumbar/pelvis CT today is nto showing any new metastatic disease. - Work-up for low back pain as above. (6) Aortic aneurysm, abdominal: Plan: - s/p stenting in 2010. - CT was considered, however he is not reporting any thoracic back pain/pain between shoulder blades. And back pain resolved with relieving distended bladder, making his aneurysm etiology of his pain very unlikely. (7) Hypertension: Plan: - Continue metoprolol, no longer on lisinopril due to hypotension. (8) Hyperlipidemia: Plan: - Continue atorvastatin. (9) GERD (gastroesophageal reflux disease): Plan: - Continue pantoprazole. (10) Anxiety: Plan: - Continue lorazepam 0.5 mg BID prn. Plan - discharge plans, likely home with HH - SCDs, Lovenox for VTE ppx. - Full Code. Admission and Anticipated Discharge Date Admission Date: October 05, 2022 Subjective patient seen and examined, family by bedside. awake and alert, hip pain under fair control Review of Systems Review of Systems: All systems reviewed are negative, apart from the ones contained in the history. Physical Exam Physical Exam: The patient is awake, alert and oriented 3, well developed and well nourished, normocephalic and atraumatic, lying in bed and in no acute distress. HEENT--PERRL, EOMI, mucous membranes and oropharynx mildly dry Neck--supple. No JVD. No bruits. Thyroid normal, trachea midline, no adenopathy. Heart--normal S1 and S2. No murmurs, rubs or gallops. Lungs--clear bilaterally, no respiratory distress, no accessory muscle use. Abdomen--normal bowel sounds and soft. Mild epigastric and left sided abdominal pain Extremities--no cyanosis or clubbing. No edema. Dermatologic--normal skin turgor, normal color, no abnormal lymph nodes, no rash. Neurologic--cranial nerves II through XII grossly intact. Rheumatologic--normal range of motion. Psychiatric--normal affect. Results & Data Results & Data ([facility]) Vital Signs (Past 12 Hours) Vital Signs Temp Pulse Pulse Resp BP BP Pulse Ox 10/08/22 11:49 98.1 F 87 18 123/63 92 10/08/22 07:55 83 16 99/55 L 94 10/08/22 07:35 96 H 16 103/46 L 94 10/08/22 07:37 99 H 10/08/22 07:09 102 H 16 119/51 L 94 10/08/22 03:49 98.2 F 104 H 20 127/64 92 O2 Del Method 10/08/22 11:49 Room Air 10/08/22 07:55 Room Air 10/08/22 07:35 Room Air 10/08/22 07:37 10/08/22 07:09 Room Air 10/08/22 03:49 Room Air PG Care Time/CCT Total # of Minutes Spent Total Time Spent with Patient: Total time spent is greater than 50% in coordination of care (as documented) at patient's floor/unit and/or counseling patient: Coding Level of Care Code 26706 SUB INP/OBS CARE 2/35MIN Diagnoses Back pain M54.9 Elevated troponin R77.8 Aortic valve vegetation I33.0 Hyponatremia E87.1 Metastatic castration-resistant adenocarcinoma of prostate C61; Z19.2 Aortic aneurysm, abdominal I71.40 Hypertension I10 Hyperlipidemia E78.5 GERD (gastroesophageal reflux disease) K21.9 Anxiety F41.9 Time Spent (min) 35
--- NOTE | 2022-10-08 13:10 | Palliative Care Consultation ---
Date of Consultation October 08, 2022 Assessment & Plan (1) Back pain: No metastatic disease identified in back Significant degenerative disc disease - conservative treatment per orthopedics Physical therapy involved Continue oxycodone Consider lidocaine patch (2) Anorexia: Started on mirtazapine about six weeks ago. Will increase dose to 15mg Family asked about medical marijuana which may be an option for him as an outpatient (3) Generalized weakness: Physical therapy involved Family hopeful for rehab, with venue depending on PT recommendation. We discussed weakness as potential sign of disease progression as well. (4) Palliative care encounter: Mr. Longo has never really talked about how he feels about his illness or what the goals are for his care, per his family. He declined to discuss that with me. He is a full code and has been interested in any available treatment for his cancer. However, his change in mood and withdrawing from family suggest that he is aware of his advanced disease and considering his future. He is not willing to discuss that at this time. I discussed this with family and encouraged them to discuss together and with Domingo as he is willing about what is most important to him at this point in his illness, what are possible limits to what he would be willing to go through for treatment and what his goals are for his care. He will be followed by Dr. Mcdonald as an outpatient. History of Present Illness Reason for Consultation: goals of care Requesting Physician: Dr. Pearson Attending Physician: Neetu Pearson MD History of Present Illness 77 yo gentlemandiagnosed with Hughson 5+4 prostate cancer in 2019. He underwent prostatectomy and has had multiple treatment regimen since that time including, leuprolide, docetaxel, abiraterone, olaparib and caazitaxel. In July 2022 he was found to have disease progression with new metastatic lesions in right acetabulum and sternum with progression of known liver lesions. He is planning to start a new treatment regimen in the next week or so. He is followed by Dr. Roland at [place]. At about the same time, his family noticed that he has been more withdrawn with depressed mood, decreased appetite and variable confusion. 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 His oncologist started him on mirtazapine which has improved his sleeping but family has not noticed improvement in mood or appetite. He presented with back pain and weakness. He also had urinary retention on admission. He remains very weak, but back pain has improved some. Imaging shows extensive degenerative disc disease throughout lumbar spine with L1L2 disc bulge causing moderate narrowing of left canal. He has been evaluated by orthopedics with recommendation for conservative management. He complains of back pain at present and is uncomfortable in the bed. He is somewhat irritable and declines discussion about his illness or goals of care. He was agreeable to me discussing this with his family. Allergies Allergy/AdvReac Type Severity Reaction Status Date / Time brimonidine [From Combigan] Allergy Intermediate Rash Verified 10/05/22 16:06 timolol [From Combigan] Allergy Intermediate Rash Verified 10/05/22 16:06 oregano Allergy Gastrointestinal Verified 10/05/22 16:06 Upset kareem Allergy Gastrointestinal Verified 10/05/22 16:06 Upset Home Medications Medication Instructions Recorded Confirmed Type atorvastatin 40 mg tablet 40 mg PO QPM 10/13/18 10/05/22 History metoprolol succinate 50 mg 50 mg PO QAM 10/13/18 10/05/22 History tablet,extended release 24 hr pantoprazole 40 mg tablet,delayed 40 mg PO QAM 10/13/18 10/05/22 History release polyethylene glycol 3350 17 gram 17 g PO HS PRN Constipation 10/13/18 10/05/22 History oral powder packet (Miralax) dorzolamide 22.3 mg-timolol 6.8 1 drp OPB DAILY 11/17/18 10/05/22 History mg/mL eye drops (Cosopt) latanoprost 0.005 % eye drops 1 drp OPB DAILY 11/17/18 10/05/22 History (Xalatan) lorazepam 0.5 mg tablet 0.5 mg PO BID PRN Anxiety 11/25/18 10/05/22 History leuprolide acetate (6 month) 45 mg 45 mg IM UD #1 ea 04/10/21 10/05/22 Rx intramuscular syringe kit (Lupron Depot) enzalutamide 40 mg tablet (Xtandi) 40 mg PO UD 10/05/22 10/05/22 History mirtazapine 7.5 mg tablet 7.5 mg PO HS 10/05/22 10/05/22 History ondansetron HCl 8 mg tablet 8 mg PO Q8H PRN Nausea 10/05/22 10/05/22 History oxycodone 5 mg tablet 5 mg PO Q4H PRN Pain 10/05/22 10/05/22 History Patient History Medical History Anxiety Aortic aneurysm, abdominal s/p stent graft repair 2010 Bradycardia ASYMPTOMATIC ON BETA JENNIFER GERD (gastroesophageal reflux disease) CONTROLLED Glaucoma Hyperlipidemia Hypertension Male stress incontinence Metastatic castration-resistant adenocarcinoma of prostate Obesity Surgical History History of abdominal aortic aneurysm repair 2010 History of cataract extraction with lens replacement History of liver biopsy History of prostate biopsy 11/09/18 History of prostatectomy W/ BL PELVIC LYMPH NODE DISSECTION AND BLADDER NECK RECONSTRUCTION 12/15/2018 [facility] - MAC #4, ETT #8, HiLo Oral, Grade 1 View History of umbilical hernia repair S/P excision of lipoma FOREHEAD Family History Mother , Passed age 78 of Breast Cancer No problems noted. Father , Passed age 78 of Heart Disease No problems noted. Sister , Passed age 76 of Breast Cancer No problems noted. Sister No problems noted. Sister No problems noted. Sister No problems noted. Brother Myocardial infarction Aunt , Fraternal - Passed in 60's/70's of Breast CA No problems noted. Grandmother (Maternal) , Passed in 70's of Breast CA No problems noted. Son No problems noted. Son No problems noted. Son No problems noted. Daughter No problems noted. 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 Feels Safe at Home: Yes caffeine: Yes (4+ cups of coffee/day ) during the past year weight has: remained stable Assistive Devices: None Review of Systems Review of Systems: ESAS Pain 2/3 Dyspnea 0/3 Anxiety 2/3 Fatigue 2/3 Drowsiness 0/3 PPS 30% Physical Exam Constitutional: no acute distress ENMT: Mouth: oral mucous membranes not dry Respiratory: normal respiratory effort; no labored breathing Cardiovascular: Rate/Rhythm: regular rate and regular rhythm Gastrointestinal (Abdomen): LBM 10/08 Musculoskeletal: Extremities: extremities normal to inspection Neurologic: Speech / Cognition: normal cognition Genitourinary: pelaez catheter Results & Data ([facility]) Vital Signs (Past 12 Hours) Vital Signs Temp Pulse Pulse Resp BP BP Pulse Ox 10/08/22 11:49 98.1 F 87 18 123/63 92 10/08/22 07:55 83 16 99/55 L 94 10/08/22 07:35 96 H 16 103/46 L 94 10/08/22 07:37 99 H 10/08/22 07:09 102 H 16 119/51 L 94 10/08/22 03:49 98.2 F 104 H 20 127/64 92 O2 Del Method 10/08/22 11:49 Room Air 10/08/22 07:55 Room Air 10/08/22 07:35 Room Air 10/08/22 07:37 10/08/22 07:09 Room Air 10/08/22 03:49 Room Air PG Care Time/CCT Total # of Minutes Spent Total Time Spent: 80 Total Time Spent with Patient: Total time spent is greater than 50% in coordination of care (as documented) at patient's floor/unit and/or counseling patient: [id number] symptom management, prognosis, goals of care, family education and support Coding Level of Care Code 97606 INT INP/OBS CARE 3/75MIN Diagnoses Back pain M54.9 Anorexia R63.0 Generalized weakness R53.1 Palliative care encounter Z51.5
--- NOTE | 2022-10-08 14:35 | Cardiology Consultation ---
Date of Consultation October 08, 2022 Assessment & Plan (1) Aortic valve mass: Etiology of mass remains uncertain. Not typical for a vegetation but this cannot be excluded, particularly a now fibrosed vegetation from a prior subclinical endocarditis. In the absence of fever, leukocytosis (which may be masked by his pancytopenia), bacteremia, or embolic phenomenon, no specific treatment is warranted. Possibly, he simply has age-related aortic valvular fibrosis which is noncalcified and more exuberant than typical and results in some degree of valvular prolapse. Recommend follow-up at some point with a repeat echocardiogram, but since any process is likely to evolve slowly would defer this for 3 to 6 months. (2) Aortic regurgitation: Mild to moderate aortic regurgitation secondary to valvular deformity. Not readily audible at this time. Would follow with regular auscultation, repeat echocardiogram if diastolic murmur becomes prominent. Otherwise, as noted would check follow-up echocardiogram in 3 to 6 months, transthoracic echocardiogram should be adequate. (3) Elevated troponin: Plan Nonspecific finding given the absence of chest pain or concurrent ECG changes. Not an aspirin candidate given his thrombocytopenia. No evidence of ongoing clinically significant myocardial ischemia. Low threshold for reevaluation should he develop classic anginal type symptoms, but at this point he does not appear to be exhibiting any active myocardial ischemia. History of Present Illness Reason for Consultation: Need for transesophageal echocardiogram Requesting Physician: Neetu Pearson MD Attending Physician: Neetu Pearson MD History of Present Illness 77-year-old man with metastatic prostate cancer, chemotherapy-induced pancytopenia, vascular risk factors (hypertension, dyslipidemia, prediabetes) status post abdominal aortic aneurysm stenting (2010) who was admitted with severe back pain and confusion. He was incidentally noted to have a thickened aortic valve with possible mass and underwent transesophageal echocardiogram this morning for further evaluation. He denies any chest pain, dyspnea, orthopnea, PND, or ankle edema. No palpitations, presyncope, or syncope. He did recently receive oxycodone for worsening back pain and developed some degree of confusion. High-sensitivity troponin values sukhjinder modestly from 69 to 126 before declining to 91.4. ECG on admission showed sinus tachycardia 113 bpm with frequent PVCs and an age- indeterminate septal infarct. No significant ST deviation. Subsequent ECG showed sinus rhythm with PVCs and lateral Q waves (which appear to be related to lead placement and erroneous, not seen on prior or subsequent ECG). ECG yesterday showed sinus rhythm at 95 bpm with frequent PVCs and was otherwise unremarkable. At the time of my evaluation yesterday and today, patient noted positional low back pain which worsened with movement, no other somatic complaints. Allergies Allergy/AdvReac Type Severity Reaction Status Date / Time brimonidine [From Combigan] Allergy Intermediate Rash Verified 10/05/22 16:06 timolol [From Combigan] Allergy Intermediate Rash Verified 10/05/22 16:06 oregano Allergy Gastrointestinal Verified 10/05/22 16:06 Upset kareem Allergy Gastrointestinal Verified 10/05/22 16:06 Upset Home Medications Medication Instructions Recorded Confirmed Type atorvastatin 40 mg tablet 40 mg PO QPM 10/13/18 10/05/22 History metoprolol succinate 50 mg 50 mg PO QAM 10/13/18 10/05/22 History tablet,extended release 24 hr pantoprazole 40 mg tablet,delayed 40 mg PO QAM 10/13/18 10/05/22 History release polyethylene glycol 3350 17 gram 17 g PO HS PRN Constipation 10/13/18 10/05/22 History oral powder packet (Miralax) dorzolamide 22.3 mg-timolol 6.8 1 drp OPB DAILY 11/17/18 10/05/22 History mg/mL eye drops (Cosopt) latanoprost 0.005 % eye drops 1 drp OPB DAILY 11/17/18 10/05/22 History (Xalatan) lorazepam 0.5 mg tablet 0.5 mg PO BID PRN Anxiety 11/25/18 10/05/22 History leuprolide acetate (6 month) 45 mg 45 mg IM UD #1 ea 04/10/21 10/05/22 Rx intramuscular syringe kit (Lupron Depot) enzalutamide 40 mg tablet (Xtandi) 40 mg PO UD 10/05/22 10/05/22 History mirtazapine 7.5 mg tablet 7.5 mg PO HS 10/05/22 10/05/22 History ondansetron HCl 8 mg tablet 8 mg PO Q8H PRN Nausea 10/05/22 10/05/22 History oxycodone 5 mg tablet 5 mg PO Q4H PRN Pain 10/05/22 10/05/22 History Patient History Medical History Anxiety Aortic aneurysm, abdominal s/p stent graft repair 2010 Bradycardia ASYMPTOMATIC ON BETA JENNIFER GERD (gastroesophageal reflux disease) CONTROLLED Glaucoma Hyperlipidemia Hypertension Male stress incontinence Metastatic castration-resistant adenocarcinoma of prostate Obesity Surgical History History of abdominal aortic aneurysm repair 2010 History of cataract extraction with lens replacement History of liver biopsy History of prostate biopsy 11/09/18 History of prostatectomy W/ BL PELVIC LYMPH NODE DISSECTION AND BLADDER NECK RECONSTRUCTION 12/15/2018 [facility] - MAC #4, ETT #8, HiLo Oral, Grade 1 View History of umbilical hernia repair S/P excision of lipoma FOREHEAD Family History Mother , Passed age 78 of Breast Cancer No problems noted. Father , Passed age 78 of Heart Disease No problems noted. Sister , Passed age 76 of Breast Cancer No problems noted. Sister No problems noted. Sister No problems noted. Sister No problems noted. Brother Myocardial infarction Aunt , Fraternal - Passed in 60's/70's of Breast CA No problems noted. Grandmother (Maternal) , Passed in 70's of Breast CA No problems noted. Son No problems noted. Son No problems noted. Son No problems noted. Daughter No problems noted. 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 Afebrile. BP 123/63 mmHg. Pulse 86 bpm and regular with ectopy. Skin: no ecchymoses or generalized lesions. HEENT: unremarkable. Neck: Jugular venous pulse normal, no carotid bruits. Lungs: Mildly decreased breath sounds but clear throughout. Cardiac: regular rhythm, normal S1 and S2, no obvious systolic or diastolic murmur, no gallop. Abdomen: benign. Extremities: no edema, pulses intact. Neurologic: normal affect, limited insight, nonfocal. Results & Data ([facility]) Vital Signs (Past 12 Hours) Vital Signs Temp Pulse Pulse Resp BP BP Pulse Ox 10/08/22 11:49 98.1 F 87 18 123/63 92 10/08/22 07:55 83 16 99/55 L 94 10/08/22 07:35 96 H 16 103/46 L 94 10/08/22 07:37 99 H 10/08/22 07:09 102 H 16 119/51 L 94 10/08/22 03:49 98.2 F 104 H 20 127/64 92 O2 Del Method 10/08/22 11:49 Room Air 10/08/22 07:55 Room Air 10/08/22 07:35 Room Air 10/08/22 07:37 10/08/22 07:09 Room Air 10/08/22 03:49 Room Air Laboratory Results Hemoglobin 8.7 with normal white count of 5.2 and platelet count of 56,000. Sodium 128, otherwise normal electrolytes, BUN 17, creatinine 0.75. Calcium 7.2. Albumin 2.4. Diagnostic Findings Chest x-ray on admission showed cardiomegaly without acute process and pulmonary emphysema. Pelvic CT showed distended urinary bladder but no evidence of osseous metastases. Lumbar MRI also showed no osseous metastases but did show an L1-L2 disc protrusion. PG Care Time/CCT Total # of Minutes Spent Total Time Spent with Patient: Total time spent is greater than 50% in coordination of care (as documented) at patient's floor/unit and/or counseling patient: Coding Level of Care Code 77767 INT INP/OBS CARE 375MIN Diagnoses Aortic valve mass I35.8 Aortic regurgitation I35.1 Elevated troponin R77.8
[2022-10-08] MEDS: ENOXAPARIN INJ 40 MG/0.4 ML SYR SQ SCH (17:44)
[2022-10-08] MEDS: LATANOPROST 0.005% OP SOLN 2.5 ML BTL OPB SCH (20:40)
[2022-10-08] MEDS: MIRTAZAPINE TAB 15 MG TAB PO SCH (20:41)
[2022-10-08] MEDS: ATORVASTATIN 40 MG TAB PO SCH (20:41)
[2022-10-09] MEDS: SODIUM CHLORIDE 0.9% 1000ML 1,000 ML IV SCH (01:24)
[2022-10-09] MEDS: SODIUM CHLORIDE 1 GM TABLET PO SCH ×3 (08:04→23:04)
[2022-10-09] MEDS: DORZOLAMIDE/TIMOLOL 22.3/6.8MG/ML 10 ML BTL OPB SCH (08:05)
[2022-10-09] MEDS: METOPROLOL SUCC 50MG EXT REL TAB PO SCH (08:05)
[2022-10-09] MEDS: PANTOprazole 40 MG TAB PO SCH (08:05)
--- NOTE | 2022-10-09 12:57 | Hospitalist Progress Note ---
Date of Service October 09, 2022 Assessment & Plan (1) Back pain: Plan: -Patient Has a history of metastatic prostate cancer -Was admitted on account of Ongoing in low back x 2 weeks despite increasing doses of oxycodone -Found to have some urine retention and bladder distension, now resolved following pelaez - No red flag s/s: no radicular pain, saddle anesthesia,no lower extremity paraesthesias, but complained of weakness and difficulty ambulating - Lumbar/pelvis CT: No acute fracture, subluxation or evidence of osseous metastasis. - Lumbar MRI shows L1-L2 disc bulge. No evidence of spinal mets from cancer -Spine surgery on consult, they recommend PT for suspected SI joint dysfunction -Patient participating in PT -Plan is SNF (2) Elevated troponin: Plan: - could be due to demand ischemia - Patient without any chest pain. 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 Salas with [facility] [place]. - Nuclear scan 09/19: new focus of PSMA Locametz at the anterior right acetabulum and new site or moderate uptake in inferior sternum suspicioius for metastatic disease. Interval increase in size and PSMA Locametz uptake in all 3 hepatic lesions exhibiting local necrosis. - Lumbar/pelvis CT today is nto showing any new metastatic disease. - Work-up for low back pain as above. (6) Aortic aneurysm, abdominal: Plan: - s/p stenting in 2010. - CT was considered, however he is not reporting any thoracic back pain/pain between shoulder blades. And back pain resolved with relieving distended bladder, making his aneurysm etiology of his pain very unlikely. (7) Hypertension: Plan: - Continue metoprolol, no longer on lisinopril due to hypotension. (8) Hyperlipidemia: Plan: - Continue atorvastatin. (9) GERD (gastroesophageal reflux disease): Plan: - Continue pantoprazole. (10) Anxiety: Plan: - Continue lorazepam 0.5 mg BID prn. Plan - discharge to SNF when accepted - SCDs, Lovenox for VTE ppx. - Full Code. Admission and Anticipated Discharge Date Admission Date: October 05, 2022 Subjective patient seen and examined, family by bedside. awake and alert, hip pain under fair control Review of Systems Review of Systems: All systems reviewed are negative, apart from the ones contained in the history. Physical Exam Physical Exam: The patient is awake, alert and oriented 3, well developed and well nourished, normocephalic and atraumatic, lying in bed and in no acute distress. HEENT--PERRL, EOMI, mucous membranes and oropharynx mildly dry Neck--supple. No JVD. No bruits. Thyroid normal, trachea midline, no adenopathy. Heart--normal S1 and S2. No murmurs, rubs or gallops. Lungs--clear bilaterally, no respiratory distress, no accessory muscle use. Abdomen--normal bowel sounds and soft. Mild epigastric and left sided abdominal pain Extremities--no cyanosis or clubbing. No edema. Dermatologic--normal skin turgor, normal color, no abnormal lymph nodes, no rash. Neurologic--cranial nerves II through XII grossly intact. Rheumatologic--normal range of motion. Psychiatric--normal affect. Results & Data Results & Data ([facility]) Vital Signs (Past 12 Hours) Vital Signs Temp Pulse Pulse Resp BP Pulse Ox O2 Del Method 10/09/22 11:18 98.2 F 75 16 117/57 L 95 Room Air 10/09/22 07:41 98.8 F 73 17 137/57 L 96 Room Air 10/09/22 06:54 93 H 10/09/22 03:27 98.1 F 96 H 18 135/64 91 Room Air PG Care Time/CCT Total # of Minutes Spent Total Time Spent with Patient: Total time spent is greater than 50% in coordination of care (as documented) at patient's floor/unit and/or counseling patient: Coding Level of Care Code 70359 SUB INP/OBS CARE 2/35MIN Diagnoses Back pain M54.9 Elevated troponin R77.8 Aortic valve vegetation I33.0 Hyponatremia E87.1 Metastatic castration-resistant adenocarcinoma of prostate C61; Z19.2 Aortic aneurysm, abdominal I71.40 Hypertension I10 Hyperlipidemia E78.5 GERD (gastroesophageal reflux disease) K21.9 Anxiety F41.9 Time Spent (min) 35
[2022-10-09] MEDS: oxyCODONE HCL IR 5 MG TAB (IMMEDIATE RELEASE) PO PRN (14:45)
[2022-10-09] MEDS: ENOXAPARIN INJ 40 MG/0.4 ML SYR SQ SCH (17:50)
[2022-10-09] MEDS: ATORVASTATIN 40 MG TAB PO SCH (23:04)
[2022-10-09] MEDS: MIRTAZAPINE TAB 15 MG TAB PO SCH (23:04)
[2022-10-09] MEDS: LATANOPROST 0.005% OP SOLN 2.5 ML BTL OPB SCH (23:05)
[2022-10-10] MEDS: DORZOLAMIDE/TIMOLOL 22.3/6.8MG/ML 10 ML BTL OPB SCH (08:59)
[2022-10-10] MEDS: SODIUM CHLORIDE 1 GM TABLET PO SCH ×3 (08:59→22:21)
[2022-10-10] MEDS: PANTOprazole 40 MG TAB PO SCH (08:59)
[2022-10-10] MEDS: METOPROLOL SUCC 50MG EXT REL TAB PO SCH (08:59)
--- NOTE | 2022-10-10 11:03 | Hospitalist Progress Note ---
Date of Service October 10, 2022 Assessment & Plan (1) Back pain: Plan: -Patient Has a history of metastatic prostate cancer -Was admitted on account of Ongoing in low back x 2 weeks despite increasing doses of oxycodone -Found to have some urine retention and bladder distension, now resolved following pelaez - No red flag s/s: no radicular pain, saddle anesthesia,no lower extremity paraesthesias, but complained of weakness and difficulty ambulating - Lumbar/pelvis CT: No acute fracture, subluxation or evidence of osseous metastasis. - Lumbar MRI shows L1-L2 disc bulge. No evidence of spinal mets from cancer -Spine surgery on consult, they recommend PT for SI joint dysfunction -Patient participating in PT -Plan is SNF when accepted (2) Elevated troponin: Plan: - could be due to demand ischemia - Patient without any chest pain. 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 [facility] [place] Nuclear scan 09/19: new focus of PSMA Locametz at the anterior right acetabulum and new site or moderate uptake in inferior sternum suspicioius for metastatic disease. Interval increase in size and PSMA Locametz uptake in all 3 hepatic lesions exhibiting local necrosis. - Lumbar/pelvis CT today is nto showing any new metastatic disease. - Work-up for low back pain as above. (6) Aortic aneurysm, abdominal: Plan: - s/p stenting in 2010. - CT was considered, however he is not reporting any thoracic back pain/pain between shoulder blades. And back pain resolved with relieving distended bladder, making his aneurysm etiology of his pain very unlikely. (7) Hypertension: Plan: - Continue metoprolol, resume Lisinopril (8) Hyperlipidemia: Plan: - Continue atorvastatin. (9) GERD (gastroesophageal reflux disease): Plan: - Continue pantoprazole. (10) Anxiety: Plan: - Continue lorazepam 0.5 mg BID prn. Plan - discharge to SNF when accepted - SCDs, Lovenox for VTE ppx. - Full Code. Admission and Anticipated Discharge Date Admission Date: October 05, 2022 Subjective patient seen and examined,still with poor appetite, says pain under good control Review of Systems Review of Systems: All systems reviewed are negative, apart from the ones contained in the history. Physical Exam Physical Exam: The patient is awake, alert and oriented 3, well developed and well nourished, normocephalic and atraumatic, lying in bed and in no acute distress. HEENT--PERRL, EOMI, mucous membranes and oropharynx mildly dry Neck--supple. No JVD. No bruits. Thyroid normal, trachea midline, no adenopathy. Heart--normal S1 and S2. No murmurs, rubs or gallops. Lungs--clear bilaterally, no respiratory distress, no accessory muscle use. Abdomen--normal bowel sounds and soft. Mild epigastric and left sided abdominal pain Extremities--no cyanosis or clubbing. No edema. Dermatologic--normal skin turgor, normal color, no abnormal lymph nodes, no rash. Neurologic--cranial nerves II through XII grossly intact. Rheumatologic--normal range of motion. Psychiatric--normal affect. Results & Data Results & Data ([facility]) Vital Signs (Past 12 Hours) Vital Signs Temp Pulse Pulse Resp BP Pulse Ox O2 Del Method 10/10/22 08:21 97.2 F L 79 16 163/80 H 98 Room Air 10/10/22 07:39 97.7 F 86 20 124/63 93 Room Air 10/10/22 06:13 Room Air 10/10/22 03:42 98.2 F 87 18 120/62 95 Room Air 10/10/22 02:24 96 H 10/09/22 23:09 98.4 F 69 18 111/59 L 94 Room Air PG Care Time/CCT Total # of Minutes Spent Total Time Spent with Patient: Total time spent is greater than 50% in coordination of care (as documented) at patient's floor/unit and/or counseling patient: Coding Level of Care Code 24959 SUB INP/OBS CARE 2/35MIN Diagnoses Back pain M54.9 Elevated troponin R77.8 Aortic valve vegetation I33.0 Hyponatremia E87.1 Metastatic castration-resistant adenocarcinoma of prostate C61; Z19.2 Aortic aneurysm, abdominal I71.40 Hypertension I10 Hyperlipidemia E78.5 GERD (gastroesophageal reflux disease) K21.9 Anxiety F41.9 Time Spent (min) 35
[2022-10-10] MEDS ORDERED: lisinopril 10 MG TAB PO SCH (11:15)
--- NOTE | 2022-10-10 11:28 | Cardiology Progress Note ---
Date of Service October 10, 2022 Assessment & Plan (1) Aortic valve mass: Plan: As noted, etiology of mass remains uncertain. Suspicion for current vegetation or thrombosis is low. 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 I will order a follow-up echocardiogram for 4 months from now and see him in the office to discuss results. If there is no change in his valvular anatomy on follow-up echocardiogram, this would again be consistent with valvular fibrosis and simply following with annual auscultation should be adequate. (2) Aortic regurgitation: Plan: Mild to moderate, not readily auscultatable. Check follow-up echo and follow with regular auscultation. (3) Elevated troponin: Plan: Nonspecific finding, no symptoms or ECG changes to suggest ongoing myocardial ischemia. No specific treatment. I will arrange for outpatient cardiology follow-up with me in 4 months (just after his follow-up echocardiogram). Admission and Anticipated Discharge Date Admission Date: October 05, 2022 Subjective Appears comfortable, offers no complaints. Denied chest pain, dyspnea, or subjective palpitations. Hemodynamically stable and afebrile. Physical Exam Physical Exam: Appears comfortable. Afebrile. BP 114/63 mmHg. Pulse 82 bpm and regular with ectopy. Skin: no ecchymoses or generalized lesions. HEENT: unremarkable. Neck: Jugular venous pulse normal, no carotid bruits. Lungs: Mildly decreased breath sounds but clear throughout. Cardiac: regular rhythm, normal S1 and intact aortic closure sound, 2/6 crescendo/decrescendo right upper sternal border systolic ejection murmur, no diastolic murmur appreciated. Abdomen: benign. Extremities: no edema, pulses intact. Neurologic: Answers simple questions appropriately, grossly nonfocal. PG Care Time/CCT Total # of Minutes Spent Total Time Spent with Patient: Total time spent is greater than 50% in coordination of care (as documented) at patient's floor/unit and/or counseling patient: Coding Level of Care Code 83310 SUB INP/OBS CARE 3/50MIN Diagnoses Aortic valve mass I35.8 Aortic regurgitation I35.1 Elevated troponin R77.8
[2022-10-10 11:54] LABS: BUN Creatinine Ratio 22.2 (10-20); Calcium 7.5 mg/dl (8.5-10.1); Creatinine Clr Calc Pharmacy 108.6 ml/min; Est GFR (African American) 105.8 ml/min; Est GFR (Non-African American) 91.3 ml/min; Potassium 3.5 mmol/L (3.5-5.1)
[2022-10-10] MEDS: oxyCODONE HCL IR 5 MG TAB (IMMEDIATE RELEASE) PO PRN (12:21)
--- NOTE | 2022-10-10 13:04 | Communication Note ---
Date of Service: October 10, 2022 case discussed at [facility] Palliative med rounds. [facility] will see pt today to assist with emotional distress/fear of mortality etc. We will follow peripherally for now, pt has not wanted to engage in ACP or GOC discussions. He has outpatient Pall med with Dr Chan at [facility], please make sure he sees her within 2 weeks of dc, she has ability to see by telemed if needed. pt not seen, no charge submitted. Beatriz Rascon DNP Clinical Director, Palliative Medicine
[2022-10-10] MEDS: ACETAMINOPHEN 325 MG TAB PO PRN (16:12)
[2022-10-10] MEDS: ENZALUTAMIDE 40 MG PO SCH (16:16)
[2022-10-10] MEDS: ENOXAPARIN INJ 40 MG/0.4 ML SYR SQ SCH (18:06)
[2022-10-10] MEDS: POLYETHYLENE (MIRALAX) 17 GM PACK PO SCH (22:19)
[2022-10-10] MEDS: LATANOPROST 0.005% OP SOLN 2.5 ML BTL OPB SCH (22:19)
[2022-10-10] MEDS: MIRTAZAPINE TAB 15 MG TAB PO SCH (22:20)
[2022-10-10] MEDS: ATORVASTATIN 40 MG TAB PO SCH (22:21)
[2022-10-11] MEDS: oxyCODONE HCL IR 5 MG TAB (IMMEDIATE RELEASE) PO PRN ×2 (03:36→11:48)
[2022-10-11 07:26] LABS: BUN Creatinine Ratio 24.7 (10-20); Calcium 7.3 mg/dl (8.5-10.1); Creatinine Clr Calc Pharmacy 101.5 ml/min; Est GFR (African American) 102.9 ml/min; Est GFR (Non-African American) 88.8 ml/min; Potassium 3.5 mmol/L (3.5-5.1)
[2022-10-11] MEDS: PANTOprazole 40 MG TAB PO SCH (09:02)
[2022-10-11] MEDS: SODIUM CHLORIDE 1 GM TABLET PO SCH ×3 (09:02→20:49)
[2022-10-11] MEDS: DORZOLAMIDE/TIMOLOL 22.3/6.8MG/ML 10 ML BTL OPB SCH (09:02)
[2022-10-11] MEDS: METOPROLOL SUCC 50MG EXT REL TAB PO SCH (09:02)
--- NOTE | 2022-10-11 12:29 | Hospitalist Progress Note ---
Date of Service October 11, 2022 Assessment & Plan (1) Back pain: Plan: -Patient Has a history of metastatic prostate cancer -Was admitted on account of Ongoing in low back x 2 weeks despite increasing doses of oxycodone -Found to have some urine retention and bladder distension, now resolved following pelaez - No red flag s/s: no radicular pain, saddle anesthesia,no lower extremity paraesthesias, but complained of weakness and difficulty ambulating - Lumbar/pelvis CT: No acute fracture, subluxation or evidence of osseous metastasis. - Lumbar MRI shows L1-L2 disc bulge. No evidence of spinal mets from cancer -Spine surgery on consult, they recommend PT for SI joint dysfunction -Patient participating in PT -Plan is SNF when accepted (2) Elevated troponin: Plan: - could be due to demand ischemia, type 2 [place] - Patient without any chest pain. 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 Salas with [facility] [place]. - Nuclear scan 09/19: new focus of PSMA Locametz at the anterior right acetabulum and new site or moderate uptake in inferior sternum suspicioius for metastatic disease. Interval increase in size and PSMA Locametz uptake in all 3 hepatic lesions exhibiting local necrosis. - Lumbar/pelvis CT today is nto showing any new metastatic disease. - Work-up for low back pain as above. (6) Aortic aneurysm, abdominal: Plan: - s/p stenting in 2010. - CT was considered, however he is not reporting any thoracic back pain/pain between shoulder blades. And back pain resolved with relieving distended bladder, making his aneurysm etiology of his pain very unlikely. (7) Hypertension: Plan: - Continue metoprolol, resume Lisinopril (8) Hyperlipidemia: Plan: - Continue atorvastatin. (9) GERD (gastroesophageal reflux disease): Plan: - Continue pantoprazole. (10) Anxiety: Plan: - Continue lorazepam 0.5 mg BID prn. Plan - discharge to SNF when accepted - SCDs, Lovenox for VTE ppx. - Full Code. Admission and Anticipated Discharge Date Admission Date: October 05, 2022 Subjective patient seen and examined, by the bedside, no new complaints Review of Systems Review of Systems: All systems reviewed are negative, apart from the ones contained in the history. Physical Exam Physical Exam: The patient is awake, alert and oriented 3, well developed and well nourished, normocephalic and atraumatic, lying in bed and in no acute distress. HEENT--PERRL, EOMI, mucous membranes and oropharynx mildly dry Neck--supple. No JVD. No bruits. Thyroid normal, trachea midline, no adenopathy. Heart--normal S1 and S2. No murmurs, rubs or gallops. Lungs--clear bilaterally, no respiratory distress, no accessory muscle use. Abdomen--normal bowel sounds and soft. Mild epigastric and left sided abdominal pain Extremities--no cyanosis or clubbing. No edema. Dermatologic--normal skin turgor, normal color, no abnormal lymph nodes, no rash. Neurologic--cranial nerves II through XII grossly intact. Rheumatologic--normal range of motion. Psychiatric--normal affect. Results & Data Results & Data ([facility]) Vital Signs (Past 12 Hours) Vital Signs Temp Pulse Resp BP Pulse Ox O2 Del Method 10/11/22 08:00 Room Air 10/11/22 07:15 76 10/11/22 07:35 98.6 F 18 113/59 L 95 Room Air 10/11/22 04:32 78 PG Care Time/CCT Total # of Minutes Spent Total Time Spent with Patient: Total time spent is greater than 50% in coordination of care (as documented) at patient's floor/unit and/or counseling patient: Coding Level of Care Code 82569 SUB INP/OBS CARE 2/35MIN Diagnoses Back pain M54.9 Elevated troponin R77.8 Aortic valve vegetation I33.0 Hyponatremia E87.1 Metastatic castration-resistant adenocarcinoma of prostate C61; Z19.2 Aortic aneurysm, abdominal I71.40 Hypertension I10 Hyperlipidemia E78.5 GERD (gastroesophageal reflux disease) K21.9 Anxiety F41.9 Time Spent (min) 35
--- NOTE | 2022-10-11 12:51 | Nephrology Consultation ---
Date of Consultation October 11, 2022 Assessment & Plan (1) Hyponatremia: * Hypoosmolar hyponatremia. Patient is clinically euvolemic. Uosm is inappropriately elevated. Hyponatremia is likely due to ADH release associated w/ multiple factors including malignancy, pain, nausea, narcotic analgesia and low solute intake * Agree with starting oral NaCl. 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 No evidence of spinal metastasis on MRI (4) Metastatic castration-resistant adenocarcinoma of prostate: * On antiandrogen and chemotherapy * Documented mets to bladder neck and liver History of Present Illness Reason for Consultation: Hyponatremia Attending Physician: Neetu Pearson MD History of Present Illness Mr. Longo is a 77 year old white male who is seen at the request of the hospitalist service for evaluation of hyponatremia. Medical records in the EMR were reviewed today and are summarized as follows: Mr. Longo has no prior h/o hyponatremia, CKD, thyroid disorder, or CHF. His medical history is significant for prostate cancer metastatic to the bladder neck and liver, chemotherapy- induced pancytopenia, HTN, mild to moderate aortic valve regurgitation and AAA stent (2010). Mr. Longo was admitted to [facility] 10/05/22 with severe back pain. MRI of the lumbar spine was negative for metastatic disease but did reveal disc herniation with possible impingement of the left L2 nerve root. Orthopedics evaluated Mr. Longo and reviewed his MRI films. They felt that his symptoms are c/w SI joint dysfunction and recommended conservative therapy. Currently Mr. Longo's pain is being managed w/ Oxycodone and he is awaiting placement at SNF. Since admission, serum sodium has been 126 - 128 mmol/L with Uosm 456. Hospitalist service has added NaCl 1g po TID but serum sodium remains relatively unchanged. Allergies Allergy/AdvReac Type Severity Reaction Status Date / Time brimonidine [From Combigan] Allergy Intermediate Rash Verified 10/05/22 16:06 timolol [From Combigan] Allergy Intermediate Rash Verified 10/05/22 16:06 oregano Allergy Gastrointestinal Verified 10/05/22 16:06 Upset kareem Allergy Gastrointestinal Verified 10/05/22 16:06 Upset Home Medications Medication Instructions Recorded Confirmed Type atorvastatin 40 mg tablet 40 mg PO QPM 10/13/18 10/05/22 History metoprolol succinate 50 mg 50 mg PO QAM 10/13/18 10/05/22 History tablet,extended release 24 hr pantoprazole 40 mg tablet,delayed 40 mg PO QAM 10/13/18 10/05/22 History release polyethylene glycol 3350 17 gram 17 g PO HS PRN Constipation 10/13/18 10/05/22 History oral powder packet (Miralax) dorzolamide 22.3 mg-timolol 6.8 1 drp OPB DAILY 11/17/18 10/05/22 History mg/mL eye drops (Cosopt) latanoprost 0.005 % eye drops 1 drp OPB DAILY 11/17/18 10/05/22 History (Xalatan) lorazepam 0.5 mg tablet 0.5 mg PO BID PRN Anxiety 11/25/18 10/05/22 History leuprolide acetate (6 month) 45 mg 45 mg IM UD #1 ea 04/10/21 10/05/22 Rx intramuscular syringe kit (Lupron Depot) enzalutamide 40 mg tablet (Xtandi) 40 mg PO UD 10/05/22 10/05/22 History mirtazapine 7.5 mg tablet 7.5 mg PO HS 10/05/22 10/05/22 History ondansetron HCl 8 mg tablet 8 mg PO Q8H PRN Nausea 10/05/22 10/05/22 History oxycodone 5 mg tablet 5 mg PO Q4H PRN Pain 10/05/22 10/05/22 History Patient History Medical History Anxiety Aortic aneurysm, abdominal s/p stent graft repair 2010 Bradycardia ASYMPTOMATIC ON BETA JENNIFER GERD (gastroesophageal reflux disease) CONTROLLED Glaucoma Hyperlipidemia Hypertension Male stress incontinence Metastatic castration-resistant adenocarcinoma of prostate Obesity Surgical History History of abdominal aortic aneurysm repair 2010 History of cataract extraction with lens replacement History of liver biopsy History of prostate biopsy 11/09/18 History of prostatectomy W/ BL PELVIC LYMPH NODE DISSECTION AND BLADDER NECK RECONSTRUCTION 12/15/2018 [facility] - MAC #4, ETT #8, HiLo Oral, Grade 1 View History of umbilical hernia repair S/P excision of lipoma FOREHEAD Family History Mother , Passed age 78 of Breast Cancer No problems noted. Father , Passed age 78 of Heart Disease No problems noted. Sister , Passed age 76 of Breast Cancer No problems noted. Sister No problems noted. Sister No problems noted. Sister No problems noted. Brother Myocardial infarction Aunt , Fraternal - Passed in 60's/70's of Breast CA No problems noted. Grandmother (Maternal) , Passed in 70's of Breast CA No problems noted. Son No problems noted. Son No problems noted. Son No problems noted. Daughter No problems noted. 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 Feels Safe at Home: Yes caffeine: Yes (4+ cups of coffee/day ) during the past year weight has: remained stable Assistive Devices: None Review of Systems Constitutional: + weakness (poor appetite); no fever Eyes: no problem reported Ear, Nose, Mouth, Throat: no problem reported Respiratory: no dyspnea Cardiovascular: no chest pain Gastrointestinal: + nausea; no abdominal pain, no vomiting and no diarrhea/loose stools Genitourinary: + urinary hesitancy Neurologic: no localized weakness Physical Exam Constitutional: + frail appearing; not in distress Eyes: PERRL, conjunctivae normal, anicteric sclerae ENMT: external ear and nose normal, oropharynx normal Neck: trachea midline, no thyromegaly Respiratory: normal respiratory effort, lungs clear to auscultation Cardiovascular: Rate/Rhythm: regular rate and regular rhythm Heart Sounds: + murmur Gastrointestinal (Abdomen): normal bowel sounds, soft, nontender, no hepatosplenomegaly Skin: no rashes, warm and dry Neurologic: awake Speech / Cognition: normal speech and normal cognition Psychiatric: Affect: + depressed affect Results & Data ([facility]) Vital Signs (Past 12 Hours) Vital Signs Temp Pulse Resp BP Pulse Ox O2 Del Method 10/11/22 08:00 Room Air 10/11/22 07:15 76 10/11/22 07:35 37 C 18 113/59 L 95 Room Air 10/11/22 04:32 78 Laboratory Results Laboratory Tests 10/05/22 10/05/22 10/05/22 11:35 11:35 14:48 WBC Hgb Hct Plt Count Sodium 126 L Potassium Chloride Carbon Dioxide BUN Creatinine Glucose Osmolality 263 L Calcium Albumin Urine Color Urine Appearance Urine pH Ur Specific Crawford Urine Protein Urine Blood Urine Bilirubin Urine RBC (Auto) Urine Osmolality 456 L 10/05/22 10/06/22 10/06/22 14:48 00:13 22:05 WBC Hgb Hct Plt Count Sodium Potassium Chloride Carbon Dioxide BUN Creatinine Glucose Osmolality Calcium Albumin 2.4 L Urine Color Dark Yellow Urine Appearance Clear Urine pH 5.5 Ur Specific Crawford 1.021 1.022 Urine Protein 2+ H 2+ H Urine Blood Negative 2+ H Urine Bilirubin 1+ H Urine RBC (Auto) 0-4 >30 H Urine Osmolality 10/08/22 10/11/22 06:28 06:32 WBC 5.20 Hgb 8.7 L Hct 25.8 L Plt Count 56 L Sodium 128 L Potassium 3.5 Chloride 101 Carbon Dioxide 21 BUN 19 Creatinine 0.77 Glucose 91 Osmolality Calcium 7.3 L Albumin Urine Color Urine Appearance Urine pH Ur Specific Crawford Urine Protein Urine Blood Urine Bilirubin Urine RBC (Auto) Urine Osmolality Diagnostic Findings 10/06/22 Lumbar Spine MRI: 1. No osseous lesions to suggest metastatic disease. 2. An 8 x 5 mm left paracentral focal disc protrusion at L1-L2 resulting in [id number] central canal narrowing. This likely abuts the transiting left L2 nerve roots. 3. Additional [id number]-hzgfuxxp degenerative changes as described above. 4. Mild levoscoliosis. 5. No fracture or subluxation. PG Care Time/CCT Total # of Minutes Spent Total Time Spent with Patient: Total time spent is greater than 50% in coordination of care (as documented) at patient's floor/unit and/or counseling patient: Coding Level of Care Code INP/OBS CONSULT LVL 5, 80 MIN Diagnoses Hyponatremia E87.1 Hypertension I10 Back pain M54.9 Metastatic castration-resistant adenocarcinoma of prostate C61; Z19.2
[2022-10-11] MEDS: FUROSEMIDE 20 MG TAB PO SCH (12:55)
[2022-10-11] MEDS: ENZALUTAMIDE 40 MG PO SCH (15:21)
[2022-10-11] MEDS: ACETAMINOPHEN 325 MG TAB PO PRN (18:34)
[2022-10-11] MEDS: ENOXAPARIN INJ 40 MG/0.4 ML SYR SQ SCH (18:38)
[2022-10-11] MEDS: LATANOPROST 0.005% OP SOLN 2.5 ML BTL OPB SCH (20:40)
[2022-10-11] MEDS: POLYETHYLENE (MIRALAX) 17 GM PACK PO SCH (20:45)
[2022-10-11] MEDS: MIRTAZAPINE TAB 15 MG TAB PO SCH (20:48)
[2022-10-11] MEDS: ATORVASTATIN 40 MG TAB PO SCH (20:48)
[2022-10-12] MEDS: oxyCODONE HCL IR 5 MG TAB (IMMEDIATE RELEASE) PO PRN ×2 (06:06→21:12)
[2022-10-12 07:13] LABS: BUN Creatinine Ratio 24.4 (10-20); Calcium 7.3 mg/dl (8.5-10.1); Creatinine Clr Calc Pharmacy 95.3 ml/min; Est GFR (African American) 100.3 ml/min; Est GFR (Non-African American) 86.5 ml/min; Potassium 3.6 mmol/L (3.5-5.1)
[2022-10-12] MEDS: FUROSEMIDE 20 MG TAB PO SCH (08:38)
[2022-10-12] MEDS: METOPROLOL SUCC 50MG EXT REL TAB PO SCH (08:38)
[2022-10-12] MEDS: SODIUM CHLORIDE 1 GM TABLET PO SCH ×3 (08:38→21:12)
[2022-10-12] MEDS: DORZOLAMIDE/TIMOLOL 22.3/6.8MG/ML 10 ML BTL OPB SCH (08:38)
[2022-10-12] MEDS: PANTOprazole 40 MG TAB PO SCH (08:38)
--- NOTE | 2022-10-12 12:02 | Hospitalist Progress Note ---
Date of Service October 12, 2022 Assessment & Plan (1) Back pain: Plan: -Patient Has a history of metastatic prostate cancer -Was admitted on account of Ongoing in low back x 2 weeks despite increasing doses of oxycodone -Found to have some urine retention and bladder distension, now resolved following pelaez - No red flag s/s: no radicular pain, saddle anesthesia,no lower extremity paraesthesias, but complained of weakness and difficulty ambulating - Lumbar/pelvis CT: No acute fracture, subluxation or evidence of osseous metastasis. - Lumbar MRI shows L1-L2 disc bulge. No evidence of spinal mets from cancer -Spine surgery on consult, they recommend PT for SI joint dysfunction -Patient participating in PT, although barely -Plan is SNF when accepted (2) Elevated troponin: Plan: - could be due to demand ischemia, type 2 [place] - Patient without any chest pain. - ECHO did not show any wma (3) Aortic valve vegetation: Plan: vegetation or mass noted on the aortic valve on 2 d ECHO -Clinical significance is uncertain -No evidence of endocarditis, no fevers or chills, no need for blood cultures -DAWN was done which showed possibly thrombosed fibrosis, but no significantly hemodynamic aortic stenosis -Consult cardiology, plan is for outpatient follow up in 3-6 months (4) Hyponatremia: Plan: - History of chronic hyponatremia -could be Hypoosmolar hyponatremia -Continue salt tablets, 20mg lasix daily -Appreciate Nephrology recs (5) Metastatic castration-resistant adenocarcinoma of prostate: Plan: - Primary oncologist is Dr. Salas with [facility] [place]. - Nuclear scan 09/19: new focus of PSMA Locametz at the anterior right acetabulum and new site or moderate uptake in inferior sternum suspicioius for metastatic disease. Interval increase in size and PSMA Locametz uptake in all 3 hepatic lesions exhibiting local necrosis. - Lumbar/pelvis CT today is nto showing any new metastatic disease. - Work-up for low back pain as above. (6) Aortic aneurysm, abdominal: Plan: - s/p stenting in 2010. - CT was considered, however he is not reporting any thoracic back pain/pain between shoulder blades. And back pain resolved with relieving distended bladder, making his aneurysm etiology of his pain very unlikely. (7) Hypertension: Plan: - Continue metoprolol (8) Hyperlipidemia: Plan: - Continue atorvastatin. (9) GERD (gastroesophageal reflux disease): Plan: - Continue pantoprazole. (10) Poor appetite: Plan: patient has poor appetite encourage supplements (11) Anxiety: Plan: - Continue lorazepam 0.5 mg BID prn. Plan - discharge to SNF when accepted - SCDs, Lovenox for VTE ppx. - Full Code. Admission and Anticipated Discharge Date Admission Date: October 05, 2022 Subjective patient seen and examined, denies any pains, barely participating in PT Review of Systems Review of Systems: All systems reviewed are negative, apart from the ones contained in the history. Physical Exam Physical Exam: The patient is awake, alert and oriented 3, well developed and well nourished, normocephalic and atraumatic, lying in bed and in no acute distress. HEENT--PERRL, EOMI, mucous membranes and oropharynx mildly dry Neck--supple. No JVD. No bruits. Thyroid normal, trachea midline, no adenopathy. Heart--normal S1 and S2. No murmurs, rubs or gallops. Lungs--clear bilaterally, no respiratory distress, no accessory muscle use. Abdomen--normal bowel sounds and soft. Mild epigastric and left sided abdominal pain Extremities--no cyanosis or clubbing. No edema. Dermatologic--normal skin turgor, normal color, no abnormal lymph nodes, no rash. Neurologic--cranial nerves II through XII grossly intact. Rheumatologic--normal range of motion. Psychiatric--normal affect. Results & Data Results & Data ([facility]) Vital Signs (Past 12 Hours) Vital Signs Temp Pulse Resp BP Pulse Ox O2 Del Method 10/12/22 07:48 98.1 F 77 19 129/56 L 95 Room Air PG Care Time/CCT Total # of Minutes Spent Total Time Spent with Patient: Total time spent is greater than 50% in coordination of care (as documented) at patient's floor/unit and/or counseling patient: Coding Level of Care Code 99271 SUB INP/OBS CARE 2/35MIN Diagnoses Back pain M54.9 Elevated troponin R77.8 Aortic valve vegetation I33.0 Hyponatremia E87.1 Metastatic castration-resistant adenocarcinoma of prostate C61; Z19.2 Aortic aneurysm, abdominal I71.40 Hypertension I10 Hyperlipidemia E78.5 GERD (gastroesophageal reflux disease) K21.9 Poor appetite R63.0 Anxiety F41.9 Time Spent (min) 35
[2022-10-12] MEDS: ACETAMINOPHEN 325 MG TAB PO PRN (12:40)
--- NOTE | 2022-10-12 13:28 | Nephrology Progress Note ---
Date of Service October 12, 2022 Assessment & Plan (1) Hyponatremia: Plan: * Hypoosmolar hyponatremia. Patient is clinically euvolemic. Uosm is inappropriately elevated. Hyponatremia is likely due to ADH release associated w/ multiple factors including malignancy, pain, nausea, narcotic analgesia and low solute intake * Continue current dose of NaCl 1g po TID * Replace potassium PRN with oral KCl * Continue Furosemide 20 mg po q AM to promote free water excretion * Monitor PRB and urine osmolality (2) Hypertension: Plan: * Relatively euvolemic * Continue Metoprolol for BP management * BP is currently acceptable (3) Back pain: Plan: * SI joint dysfunction vs herniated L2 disc. No evidence of spinal metastasis on MRI (4) Metastatic castration-resistant adenocarcinoma of prostate: Plan: * On antiandrogen and chemotherapy * Documented mets to bladder neck and liver Admission and Anticipated Discharge Date Admission Date: October 05, 2022 Subjective No acute events overnight. Giles draining mckee colored urine. Domingo was seen and evaluated with his at the bedside. He is feeling irritable and expressed some frustration. They are hopeful for discharge possible to [facility]. No fevers or chills. Tolerating oral NaCl and furosemide well. Review of Systems Review of Systems: All systems reviewed & are unremarkable except as noted in HPI & below Physical Exam Constitutional: + frail appearing; not in distress Eyes: PERRL, conjunctivae normal, anicteric sclerae ENMT: external ear and nose normal, oropharynx normal Neck: trachea midline, no thyromegaly Respiratory: normal respiratory effort, lungs clear to auscultation Cardiovascular: Rate/Rhythm: regular rate and regular rhythm Heart Sounds: + murmur Gastrointestinal (Abdomen): normal bowel sounds, soft, nontender, no hepatosplenomegaly Skin: no rashes, warm and dry Neurologic: awake Speech / Cognition: normal speech and normal cognition Psychiatric: Affect: + depressed affect Results & Data ([facility]) Vital Signs (Past 12 Hours) Vital Signs Temp Pulse Resp BP Pulse Ox O2 Del Method 10/12/22 12:09 36.8 C 76 18 127/54 L 96 Room Air 10/12/22 07:48 36.7 C 77 19 129/56 L 95 Room Air Laboratory Results Laboratory Results - last 24 hr 10/11/22 10/12/22 15:15 06:02 Sodium 129 L Potassium 3.6 Chloride 102 Carbon Dioxide 22 Anion Gap 5 BUN 20 Creatinine 0.82 Est Cr Clr Drug Dosing 95.3 Est GFR ( Amer) 100.3 Est GFR (Non-Af Amer) 86.5 BUN/Creatinine Ratio 24.4 H Glucose 86 Calcium 7.3 L Urine Osmolality 674 PG Care Time/CCT Total # of Minutes Spent Total Time Spent with Patient: Total time spent is greater than 50% in coordination of care (as documented) at patient's floor/unit and/or counseling patient: Coding Level of Care Code 42309 SUB INP/OBS CARE 2/35MIN Diagnoses Hyponatremia E87.1 Hypertension I10 Back pain M54.9 Metastatic castration-resistant adenocarcinoma of prostate C61; Z19.2
[2022-10-12] MEDS: ENZALUTAMIDE 40 MG PO SCH (16:10)
[2022-10-12] MEDS: ENOXAPARIN INJ 40 MG/0.4 ML SYR SQ SCH (17:25)
[2022-10-12] MEDS: POLYETHYLENE (MIRALAX) 17 GM PACK PO SCH (20:02)
[2022-10-12] MEDS: ATORVASTATIN 40 MG TAB PO SCH (21:11)
[2022-10-12] MEDS: LATANOPROST 0.005% OP SOLN 2.5 ML BTL OPB SCH (21:12)
[2022-10-12] MEDS: MIRTAZAPINE TAB 15 MG TAB PO SCH (21:12)
[2022-10-13] MEDS: oxyCODONE HCL IR 5 MG TAB (IMMEDIATE RELEASE) PO PRN (05:41)
[2022-10-13 06:40] LABS: BUN Creatinine Ratio 25.3 (10-20); Calcium 7.3 mg/dl (8.5-10.1); Creatinine Clr Calc Pharmacy 94.1 ml/min; Est GFR (African American) 99.8 ml/min; Est GFR (Non-African American) 86.1 ml/min; Potassium 3.6 mmol/L (3.5-5.1)
[2022-10-13] MEDS: METOPROLOL SUCC 50MG EXT REL TAB PO SCH (08:26)
[2022-10-13] MEDS: SODIUM CHLORIDE 1 GM TABLET PO SCH ×3 (08:26→21:22)
[2022-10-13] MEDS: FUROSEMIDE 20 MG TAB PO SCH (08:26)
[2022-10-13] MEDS: PANTOprazole 40 MG TAB PO SCH (08:26)
[2022-10-13] MEDS: DORZOLAMIDE/TIMOLOL 22.3/6.8MG/ML 10 ML BTL OPB SCH (08:26)
--- NOTE | 2022-10-13 12:05 | Hospitalist Progress Note ---
Date of Service October 13, 2022 Assessment & Plan (1) Back pain: Plan: -Patient Has a history of metastatic prostate cancer -Was admitted on account of Ongoing in low back x 2 weeks despite increasing doses of oxycodone -Found to have some urine retention and bladder distension, now resolved following pelaez - No red flag s/s: no radicular pain, saddle anesthesia,no lower extremity paraesthesias, but complained of weakness and difficulty ambulating - Lumbar/pelvis CT: No acute fracture, subluxation or evidence of osseous metastasis. - Lumbar MRI shows L1-L2 disc bulge. No evidence of spinal mets from cancer -Spine surgery on consult, they recommend PT for SI joint dysfunction -Patient participating in PT, although barely -Plan is SNF, has been accepted at [facility], d/c tomorrow (2) Elevated troponin: Plan: - could be due to demand ischemia, type 2 [place] - Patient without any chest pain. - ECHO did not show any wma (3) Aortic valve vegetation: Plan: vegetation or mass noted on the aortic valve on 2 d ECHO -Clinical significance is uncertain -No evidence of endocarditis, no fevers or chills, no need for blood cultures -DAWN was done which showed possibly thrombosed fibrosis, but no significantly hemodynamic aortic stenosis -Consult cardiology, plan is for outpatient follow up in 3-6 months (4) Hyponatremia: Plan: - History of chronic hyponatremia -could be Hypoosmolar hyponatremia -Continue salt tablets, 20mg lasix daily -Appreciate Nephrology recs (5) Metastatic castration-resistant adenocarcinoma of prostate: Plan: - Primary oncologist is Dr. Salas with [facility] [place]. - Nuclear scan 09/19: new focus of PSMA Locametz at the anterior right acetabulum and new site or moderate uptake in inferior sternum suspicioius for metastatic disease. Interval increase in size and PSMA Locametz uptake in all 3 hepatic lesions exhibiting local necrosis. - Lumbar/pelvis CT today is nto showing any new metastatic disease. - Work-up for low back pain as above. (6) Aortic aneurysm, abdominal: Plan: - s/p stenting in 2010. - CT was considered, however he is not reporting any thoracic back pain/pain between shoulder blades. And back pain resolved with relieving distended bladder, making his aneurysm etiology of his pain very unlikely. (7) Hypertension: Plan: - Continue metoprolol (8) Hyperlipidemia: Plan: - Continue atorvastatin. (9) GERD (gastroesophageal reflux disease): Plan: - Continue pantoprazole. (10) Poor appetite: Plan: patient has poor appetite encourage supplements (11) Anxiety: Plan: - Continue lorazepam 0.5 mg BID prn. Plan - discharge to [facility], [facility] tomorr - SCDs, Lovenox for VTE ppx. - Full Code. Admission and Anticipated Discharge Date Admission Date: October 05, 2022 Subjective patient seen and examined, has been accepted at [facility] tomorrow Review of Systems Review of Systems: All systems reviewed are negative, apart from the ones contained in the history. Physical Exam Physical Exam: The patient is awake, alert and oriented 3, well developed and well nourished, normocephalic and atraumatic, lying in bed and in no acute distress. HEENT--PERRL, EOMI, mucous membranes and oropharynx mildly dry Neck--supple. No JVD. No bruits. Thyroid normal, trachea midline, no landon opathy. Heart--normal S1 and S2. No murmurs, rubs or gallops. Lungs--clear bilaterally, no respiratory distress, no accessory muscle use. Abdomen--normal bowel sounds and soft. Mild epigastric and left sided abdominal pain Extremities--no cyanosis or clubbing. No edema. Dermatologic--normal skin turgor, normal color, no abnormal lymph nodes, no rash. Neurologic--cranial nerves II through XII grossly intact. Rheumatologic--normal range of motion. Psychiatric--normal affect. Results & Data Results & Data ([facility]) Vital Signs (Past 12 Hours) Vital Signs Temp Pulse Resp BP Pulse Ox O2 Del Method 10/13/22 07:18 99.1 F 85 18 121/60 95 Room Air PG Care Time/CCT Total # of Minutes Spent Total Time Spent with Patient: Total time spent is greater than 50% in coordination of care (as documented) at patient's floor/unit and/or counseling patient: Coding Level of Care Code 41025 SUB INP/OBS CARE 2/35MIN Diagnoses Back pain M54.9 Elevated troponin R77.8 Aortic valve vegetation I33.0 Hyponatremia E87.1 Metastatic castration-resistant adenocarcinoma of prostate C61; Z19.2 Aortic aneurysm, abdominal I71.40 Hypertension I10 Hyperlipidemia E78.5 GERD (gastroesophageal reflux disease) K21.9 Poor appetite R63.0 Anxiety F41.9 Time Spent (min) 35
--- NOTE | 2022-10-13 12:23 | Nephrology Progress Note ---
Date of Service October 13, 2022 Assessment & Plan (1) Hyponatremia: Plan: * Hypoosmolar hyponatremia. Remains euvolemic. Uosm is inappropriately elevated. Hyponatremia is likely due to ADH release associated w/ multiple factors including malignancy, pain, nausea, narcotic analgesia and low solute intake * Continue current dose of NaCl 1g po TID * Add daily low dose KCl 20 mEq * Decrease Furosemide to every other day (or TTS schedule) * Repeat metabolic profile next week at [facility] and fax results to the nephrology clinic * Follow up with Dr. Pendleton within 2 weeks of hospital discharge (2) Hypertension: Plan: * Relatively euvolemic * Continue Metoprolol for BP management * BP is currently acceptable (3) Metastatic castration-resistant adenocarcinoma of prostate: Plan: * On antiandrogen and chemotherapy * Documented mets to bladder neck and liver Admission and Anticipated Discharge Date Admission Date: October 05, 2022 Subjective No acute events overnight. Domingo was seen and evaluated with his at the bedside. He is very tired this morning. Sleeping in part related to pain medication. No fevers or chills. Tolerating oral NaCl well. Feeling slightly dry. Appetite remains poor. Anticipated discharge to [facility] tomorrow. Review of Systems Review of Systems: All systems reviewed & are unremarkable except as noted in HPI & below Physical Exam Constitutional: + frail appearing; not in distress Eyes: PERRL, conjunctivae normal, anicteric sclerae ENMT: Mouth: + dry oral mucous membranes Neck: trachea midline, no thyromegaly Respiratory: normal respiratory effort, lungs clear to auscultation Cardiovascular: Rate/Rhythm: regular rate and regular rhythm Heart Sounds: + murmur Gastrointestinal (Abdomen): normal bowel sounds, soft, nontender, no hepatosplenomegaly Skin: no rashes, warm and dry Neurologic: awake Speech / Cognition: normal speech and normal cognition Psychiatric: Affect: + depressed affect Results & Data ([facility]) Vital Signs (Past 12 Hours) Vital Signs Temp Pulse Resp BP Pulse Ox O2 Del Method 10/13/22 07:18 37.3 C 85 18 121/60 95 Room Air Laboratory Results Laboratory Results - last 24 hr 10/13/22 05:46 Sodium 130 L Potassium 3.6 Chloride 102 Carbon Dioxide 22 Anion Gap 6 BUN 21 Creatinine 0.83 Est Cr Clr Drug Dosing 94.1 Est GFR ( Amer) 99.8 Est GFR (Non-Af Amer) 86.1 BUN/Creatinine Ratio 25.3 H Glucose 83 Calcium 7.3 L PG Care Time/CCT Total # of Minutes Spent Total Time Spent with Patient: Total time spent is greater than 50% in coordination of care (as documented) at patient's floor/unit and/or counseling patient: Coding Level of Care Code 89115 SUB INP/OBS CARE 3/50MIN Diagnoses Hyponatremia E87.1 Hypertension I10 Metastatic castration-resistant adenocarcinoma of prostate C61; Z19.2
[2022-10-13] MEDS ORDERED: KETOROLAC TROMETHAMINE 15 MG/ML VIAL IV ONE (17:38)
[2022-10-13] MEDS: ENOXAPARIN INJ 40 MG/0.4 ML SYR SQ SCH (18:02)
[2022-10-13] MEDS: POLYETHYLENE (MIRALAX) 17 GM PACK PO SCH (20:45)
[2022-10-13] MEDS: LATANOPROST 0.005% OP SOLN 2.5 ML BTL OPB SCH (21:20)
[2022-10-13] MEDS: ATORVASTATIN 40 MG TAB PO SCH (21:23)
[2022-10-13] MEDS: MIRTAZAPINE TAB 15 MG TAB PO SCH (21:24)
[2022-10-14] MEDS ORDERED: MICONAZOLE NITRATE POWDER 43 GM EXT PRN (02:28)
[2022-10-14] MEDS: METOPROLOL SUCC 50MG EXT REL TAB PO SCH (08:31)
[2022-10-14] MEDS: DORZOLAMIDE/TIMOLOL 22.3/6.8MG/ML 10 ML BTL OPB SCH (08:32)
[2022-10-14] MEDS: POTASSIUM CHLORIDE 10 MEQ TABCR PO SCH (08:32)
[2022-10-14] MEDS: SODIUM CHLORIDE 1 GM TABLET PO SCH ×3 (08:32→19:31)
[2022-10-14] MEDS: PANTOprazole 40 MG TAB PO SCH (08:32)
[2022-10-14 09:24] LABS: BUN Creatinine Ratio 26.3 (10-20); Calcium 7.3 mg/dl (8.5-10.1); Creatinine Clr Calc Pharmacy 78.9 ml/min; Est GFR (Non-African American) 74.2 ml/min; Potassium 3.4 mmol/L (3.5-5.1)
[2022-10-14] MEDS: ACETAMINOPHEN 325 MG TAB PO PRN (11:11)
--- NOTE | 2022-10-14 15:32 | Hospitalist Progress Note ---
Date of Service October 14, 2022 Assessment & Plan (1) Back pain: Plan: -Patient Has a history of metastatic prostate cancer -Was admitted on account of Ongoing in low back x 2 weeks despite increasing doses of oxycodone -Found to have some urine retention and bladder distension, now resolved following pelaez - No red flag s/s: no radicular pain, saddle anesthesia,no lower extremity paraesthesias, but complained of weakness and difficulty ambulating - Lumbar/pelvis CT: No acute fracture, subluxation or evidence of osseous metastasis. - Lumbar MRI shows L1-L2 disc bulge. No evidence of spinal mets from cancer -Spine surgery on consult, they recommend PT for SI joint dysfunction -Patient participating in PT, although barely -Plan is SNF, has been accepted at [facility], d/c tomorrow (2) Elevated troponin: Plan: - could be due to demand ischemia, type 2 [place] - Patient without any chest pain. - ECHO did not show any wma (3) Aortic valve vegetation: Plan: vegetation or mass noted on the aortic valve on 2 d ECHO -Clinical significance is uncertain -No evidence of endocarditis, no fevers or chills, no need for blood cultures -DAWN was done which showed possibly thrombosed fibrosis, but no significantly hemodynamic aortic stenosis -Consult cardiology, plan is for outpatient follow up in 3-6 months (4) Hyponatremia: Plan: - History of chronic hyponatremia -could be Hypoosmolar hyponatremia -slight improvement in serum sodium, 130 today -Continue salt tablets, 20mg lasix daily -Appreciate Nephrology recs (5) Metastatic castration-resistant adenocarcinoma of prostate: Plan: - Primary oncologist is Dr. Salas with [facility] [place]. - Nuclear scan 09/19: new focus of PSMA Locametz at the anterior right acetabulum and new site or moderate uptake in inferior sternum suspicioius for metastatic disease. Interval increase in size and PSMA Locametz uptake in all 3 hepatic lesions exhibiting local necrosis. - Lumbar/pelvis CT today is nto showing any new metastatic disease. - Work-up for low back pain as above. (6) Aortic aneurysm, abdominal: Plan: - s/p stenting in 2010. - CT was considered, however he is not reporting any thoracic back pain/pain between shoulder blades. And back pain resolved with relieving distended bladder, making his aneurysm etiology of his pain very unlikely. (7) Hypertension: Plan: - Continue metoprolol (8) Hyperlipidemia: Plan: - Continue atorvastatin. (9) GERD (gastroesophageal reflux disease): Plan: - Continue pantoprazole. (10) Poor appetite: Plan: patient has poor appetite encourage supplements (11) Anxiety: Plan: - Continue lorazepam 0.5 mg BID prn. Plan - discharge to [facility], [facility] tomorrow - SCDs, Lovenox for VTE ppx. - Full Code. Admission and Anticipated Discharge Date Admission Date: October 05, 2022 Subjective patient seen and examined, no new complaints, by the bedside Review of Systems Review of Systems: All systems reviewed are negative, apart from the ones contained in the history. Physical Exam Physical Exam: The patient is awake, alert and oriented 3, well developed and well nourished, normocephalic and atraumatic, lying in bed and in no acute distress. HEENT--PERRL, EOMI, mucous membranes and oropharynx mildly dry Neck--supple. No JVD. No bruits. Thyroid normal, trachea midline, no adenopathy. Heart--normal S1 and S2. No murmurs, rubs or gallops. Lungs--clear bilaterally, no respiratory distress, no accessory muscle use. Abdomen--normal bowel sounds and soft. Mild epigastric and left sided abdominal pain Extremities--no cyanosis or clubbing. No edema. Dermatologic--normal skin turgor, normal color, no abnormal lymph nodes, no matt h. Neurologic--cranial nerves II through XII grossly intact. Rheumatologic--normal range of motion. Psychiatric--normal affect. Results & Data Results & Data ([facility]) Vital Signs (Past 12 Hours) Vital Signs Temp Pulse Resp BP BP Pulse Ox O2 Del Method 10/14/22 15:10 97.5 F L 67 20 130/83 96 Room Air 10/14/22 11:18 97.7 F 76 20 106/53 L 95 Room Air 10/14/22 07:54 Room Air 10/14/22 07:52 97.3 F L 81 20 110/67 97 Room Air PG Care Time/CCT Total # of Minutes Spent Total Time Spent with Patient: Total time spent is greater than 50% in coordination of care (as documented) at patient's floor/unit and/or counseling patient: Coding Level of Care Code 94356 SUB INP/OBS CARE 2/35MIN Diagnoses Back pain M54.9 Elevated troponin R77.8 Aortic valve vegetation I33.0 Hyponatremia E87.1 Metastatic castration-resistant adenocarcinoma of prostate C61; Z19.2 Aortic aneurysm, abdominal I71.40 Hypertension I10 Hyperlipidemia E78.5 GERD (gastroesophageal reflux disease) K21.9 Poor appetite R63.0 Anxiety F41.9 Time Spent (min) 35
[2022-10-14] MEDS: ENOXAPARIN INJ 40 MG/0.4 ML SYR SQ SCH (17:03)
[2022-10-14] MEDS: MIRTAZAPINE TAB 15 MG TAB PO SCH (19:30)
[2022-10-14] MEDS: LATANOPROST 0.005% OP SOLN 2.5 ML BTL OPB SCH (19:31)
[2022-10-14] MEDS: ATORVASTATIN 40 MG TAB PO SCH (19:31)
[2022-10-14] MEDS: POLYETHYLENE (MIRALAX) 17 GM PACK PO SCH (19:35)
[2022-10-15 07:28] LABS: BUN Creatinine Ratio 31.4 (10-20); Calcium 7.2 mg/dl (8.5-10.1); Creatinine Clr Calc Pharmacy 90.8 ml/min; Est GFR (African American) 98.3 ml/min; Est GFR (Non-African American) 84.8 ml/min; Potassium 3.4 mmol/L (3.5-5.1)
[2022-10-15] MEDS: DORZOLAMIDE/TIMOLOL 22.3/6.8MG/ML 10 ML BTL OPB SCH (08:01)
[2022-10-15] MEDS: SODIUM CHLORIDE 1 GM TABLET PO SCH (08:02)
[2022-10-15] MEDS: METOPROLOL SUCC 50MG EXT REL TAB PO SCH (08:04)
[2022-10-15] MEDS: POTASSIUM CHLORIDE 10 MEQ TABCR PO SCH (08:04)
[2022-10-15] MEDS: PANTOprazole 40 MG TAB PO SCH (08:05)
[2022-10-15] MEDS ORDERED: FUROSEMIDE 20 MG TAB PO SCH (09:00)
--- NOTE | 2022-10-15 14:53 | Discharge Summary ---
Date of Service October 15, 2022 Admission HPI Per Admitting Provider Domingo Longo is a 77-year-old male with a past medical history significant for metastatic prostate cancer, chemotherapy induced pancytopenia, hyponatremia, hypertension, hyperlipidemia, GERD, prediabetes, AAA s/p stenting in 2010, and anxiety who is presenting today with back pain. He has had worsening back pain for the past week and was prescribed oxycodone recently by his oncologist. Since taking it, he has become very weak and unable to get himself out of bed and perform activities at home. Also noted to be confused and lethargic by his as she is not as responsive as he typically is. No falls at home. Upon presentation, he has been tachycardic with HR 1001 10, otherwise vital signs within normal limits and stable. Labs are notable for a sodium of 126, slowly downtrending from 130 over the past 2 months. Also calcium low at 8.0, troponin 69. He has a stable anemia, Hgb 11.3. Head CT unremarkable, lumbar and pelvis CT with distended bladder, trace ascites, no acute fractures or subluxation or other acute process. CXR shows emphysema, no other acute process. Principal Diagnosis back pain, prostate cancer Discharge Exam The patient is awake, alert and oriented 3, well developed and well nourished, normocephalic and atraumatic, lying in bed and in no acute distress. HEENT--PERRL, EOMI, mucous membranes and oropharynx mildly dry Neck--supple. No JVD. No bruits. Thyroid normal, trachea midline, no adenopathy. Heart--normal S1 and S2. No murmurs, rubs or gallops. Lungs--clear bilaterally, no respiratory distress, no accessory muscle use. Abdomen--normal bowel sounds and soft. Mild epigastric and left sided abdominal pain Extremities--no cyanosis or clubbing. No edema. Dermatologic--normal skin turgor, normal color, no abnormal lymph nodes, no rash. Neurologic--cranial nerves II through XII grossly intact. Rheumatologic--normal range of motion. Psychiatric--normal affect. Discharge Data Allergies Allergy/AdvReac Type Severity Reaction Status Date / Time brimonidine [From Combigan] Allergy Intermediate Rash Verified 10/05/22 16:06 timolol [From Combigan] Allergy Intermediate Rash Verified 10/05/22 16:06 oregano Allergy Gastrointestinal Verified 10/05/22 16:06 Upset kareem Allergy Gastrointestinal Verified 10/05/22 16:06 Upset Consultations 10/05/22 13:53 ED Decision to Admit Stat 10/06/22 14:09 Consult Orthopedic Surgery Routine 10/07/22 08:26 Consult Cardiology Routine 10/07/22 10:27 Consult Anesthesiology Routine 10/07/22 15:29 Consult Palliative Care Routine 10/11/22 10:47 Consult Nephrology Routine Procedures Performed Operation Date: 10/08/22 07:15 Actual Procedures s Echo Color Flow - Romulo Cantu MD p Echo Transesophageal - Romulo Cantu MD s Echo Doppler Complete - Romulo Cantu MD Ordered Studies 10/05/22 11:48 CT head/brain wo con Stat CT lumbar spine wo con Stat CT pelvis wo con Stat 10/06/22 00:00 MR lumbar spine wo/w con Routine 10/06/22 21:43 CT head/brain wo con Stat 10/06/22 22:47 CT angio head w con Stat 10/06/22 23:05 CT angio neck with con Urgent Hospital Course (1) Back pain: -Patient Has a history of metastatic prostate cancer -Was admitted on account of Ongoing in low back x 2 weeks despite increasing doses of oxycodone -Found to have some urine retention and bladder distension, now resolved followi ng pelaez - No red flag s/s: no radicular pain, saddle anesthesia,no lower extremity paraesthesias, but complained of weakness and difficulty ambulating - Lumbar/pelvis CT: No acute fracture, subluxation or evidence of osseous metastasis. - Lumbar MRI shows L1-L2 disc bulge. No evidence of spinal mets from cancer -Spine surgery on consult, they recommend PT for SI joint dysfunction -Patient participating in PT, although barely -Plan is SNF, has been accepted at [facility], d/c tomorrow (2) Elevated troponin: - could be due to demand ischemia, type 2 [place] - Patient without any chest pain. - ECHO did not show any wma (3) Aortic valve vegetation: vegetation or mass noted on the aortic valve on 2 d ECHO -Clinical significance is uncertain -No evidence of endocarditis, no fevers or chills, no need for blood cultures -DAWN was done which showed possibly thrombosed fibrosis, but no significantly hemodynamic aortic stenosis -Consult cardiology, plan is for outpatient follow up in 3-6 months (4) Hyponatremia: - History of chronic hyponatremia -could be Hypoosmolar hyponatremia -slight improvement in serum sodium, 130 today -Continue salt tablets, 20mg lasix daily -Appreciate Nephrology recs (5) Metastatic castration-resistant adenocarcinoma of prostate: - Primary oncologist is Dr. Salas with [facility] [place]. - Nuclear scan 09/19: new focus of PSMA Locametz at the anterior right acetabulum and new site or moderate uptake in inferior sternum suspicioius for metastatic disease. Interval increase in size and PSMA Locametz uptake in all 3 hepatic lesions exhibiting local necrosis. - Lumbar/pelvis CT today is nto showing any new metastatic disease. - Work-up for low back pain as above. (6) Aortic aneurysm, abdominal: - s/p stenting in 2010. - CT was considered, however he is not reporting any thoracic back pain/pain between shoulder blades. And back pain resolved with relieving distended bladder, making his aneurysm etiology of his pain very unlikely. (7) Hypertension: - Continue metoprolol (8) Hyperlipidemia: - Continue atorvastatin. (9) GERD (gastroesophageal reflux disease): - Continue pantoprazole. (10) Poor appetite: patient has poor appetite encourage supplements (11) Anxiety: - Continue lorazepam 0.5 mg BID prn. Plan - discharge to [facility] tomorrow - SCDs, Lovenox for VTE ppx. - Full Code. Total Time Total Time Spent Total Time Spent (In Minutes): 35 Discharge Plan Discharge Items Patient Disposition: Transfer Care Home Fac Reason For Visit: BACK PAIN/WEAKNESS WITH ELEVATED TROP Discharge Diagnosis: back pain Activity: Resume your previous activity Non-emergency contact: Primary Care Provider and Oncologist Call non-emergency contact if: you have any medication questions Follow-up/Referrals: Maggy Mcneal MD [Primary Care Provider] - Diet: Regular Addtl Attending Provider Instructions: please make arrangement to follow up with your oncologist and ortho surgeon Pending Studies at Discharge: No Stand-Alone Forms: My [employer] Skilled Items Patient informed of condition?: Yes DNR: No Discharge Level of Care: Skilled Communicable Disease: No Discharge Prognosis: Stable Lines: None Urinary Catheter: Yes Medications and DC Order Prescriptions: New furosemide 20 mg Tablet 20 mg PO TuThSa@0900 30 Days Qty: 13 0RF sodium chloride 1,000 mg Tablet,Soluble 1 g PO TID 10 Days Qty: 30 0RF Continued Lupron [place] (6 Month) 45 mg syringe kit 45 mg IM UD Qty: 1 0RF atorvastatin 40 mg tablet 40 mg PO QPM polyethylene glycol 3350 [Miralax] 17 gram Powder In Packet 17 g PO HS PRN (Reason: Constipation) metoprolol succinate 50 mg tablet extended release 24 hr 50 mg PO QAM pantoprazole 40 mg tablet,delayed release (DR/EC) 40 mg PO QAM latanoprost [Xalatan] 0.005 % drops 1 drp OPB DAILY dorzolamide-timolol [Cosopt] 22.3-6.8 mg/mL drops 1 drp OPB DAILY lorazepam 0.5 mg Tablet 0.5 mg PO BID PRN (Reason: Anxiety) Label Comments: WEEKS AGO mirtazapine 7.5 mg tablet 7.5 mg PO HS ondansetron HCl 8 mg tablet 8 mg PO Q8H PRN (Reason: Nausea) Xtandi 40 mg tablet 40 mg PO UD Discontinued oxycodone 5 mg tablet 5 mg PO Q4H PRN (Reason: Pain) Discharge Orders: Discharge Order (Routine); Ordered 10/15/22 Ordered By: Neetu Pearson Admission Data Admit Date/Time: 10/05/22 14:03 Attending Provider: Neetu Pearson Admit Provider: Sebastian Garcia Primary Care Provider: Maggy Mcneal Other Providers: Romulo Cantu ; [facility] ; [facility] ; [facility] ; [facility] ; Sebastian Garcia ; Bro Cole ; Saniya Durham ; Moise Pendleton Other Interventions: Discharge Summary Assessment (RN) Last Done: 10/15/22 10:21 Coding Level of Care Code HOSP INP/OBS DISCH >30 MIN Diagnoses Back pain M54.9 Elevated troponin R77.8 Aortic valve vegetation I33.0 Hyponatremia E87.1 Metastatic castration-resistant adenocarcinoma of prostate C61; Z19.2 Aortic aneurysm, abdominal I71.40 Hypertension I10 Hyperlipidemia E78.5 GERD (gastroesophageal reflux disease) K21.9 Poor appetite R63.0 Anxiety F41.9 Time Spent (min) 35
== END 2022-10-15 11:45 | DRG 551 ==
LOC: ED 11:30 → SUATTDRO 14:03 → 2N 14:03